=== PATIENT | male | born 1980 | race Caucasian/White ===

== ENCOUNTER → 2023-05-03 14:22 | Outpatient (POV) | payer OTHER, SELFPAY ==
[2023-05-03 15:33] VITALS: BP 190/98; PULSE 95; RESP 18; O2SAT 98; BMI 37.5
--- NOTE | 2023-05-03 16:02 | EXP.PAIN.OV ---
HPI Data of Consult Patient: new to practice Consult date: 05/03/23 Requesting Physician: Becca Isaac APRN Consult Narrative Reason for consult: Mid back pain, neck pain History of present illness: Mr. Soria is a 42 year old male who presents today as a new patient. He is a referral from Robert Hill's office. Today he rates his pain a 2 out of 10. Patient states he has chronic pain at his mid back as well as a history of low back pain and some neck pain. Patient states that in the past he did have a disc repair surgery back in 2009 and a revision in 2019. Patient states that his pain started at his mid back around 2020 after he had a [employer]tronic spinal cord stimulator placed for his low back pain with radicular symptoms. He does state that he got significant improvement of his low back and leg symptoms with the spinal cord stimulator however after that he has right-sided mid back pain continued to be an issue. He does describe this as an aching sensation with sharp pains that is worse with increased activity. Patient denies any previous injuries that could explain his pain. He has tried [id number]-[id number] Tylenol and ibuprofen along with heat and ice and topicals such as Salonpas and lidocaine patches with no additional relief. Patient denies any other back surgery. He states that he did end up going for a second opinion after his mid back pain had been going for some time and a Dr. Liang told him that he thought he had nerve entrapment. Patient does state that it did show in his imaging that he had some stenosis. Patient is interested in any possible help we may be able to provide. Patient states in the past he has had injections however not for his mid back pain. Patient has also tried duloxetine, gabapentin and multiple muscle relaxers with no additional relief. His Roberto Carlos is [phone]. Its been reviewed and appropriate. CC: Becca Isaac APRN [facility] Disclaimer: The information contained in this section may have been updated after the patient was seen, as this information can be updated by other users. Medical History (Updated 05/03/23 @ 16:04 by Becca Isaac APRN) Back pain with history of spinal surgery Diabetes HTN (hypertension) Seasonal allergies Social History (Updated 05/03/23 @ 15:37 by Adwoa Mitchell RN) Smoking Status: Never smoker alcohol intake: never current occupational status: other Travel in the last 8 weeks: None Review of Systems Review of Systems Review of systems:: pertinent systems reviewed and negative unless documented below Review of systems (narrative): Review of Systems: General: No recent weight changes, no fever, no sleep disturbances Respiratory: No cough, no shortness of air, no recurring pulmonary infections Cardiovascular/peripheral vascular: No chest pain, no palpitations, no edema, no shortness of breath Gastrointestinal: No new onset incontinence, normal bowel movements reported Genitourinary: No new onset incontinence Musculoskeletal: Mid back pain Psychiatric: [Normal mood/affect] Neurological: [Denies weakness in extremities], [denies balance issues] Meds Home Medications and Allergies Home Medications Medication Instructions Recorded Confirmed Type amlodipine 10 mg tablet 10 mg PO DAILY BLOOD PRESSURE 05/03/23 05/03/23 History blood-glucose sensor (FreeStyle 05/03/23 05/03/23 History Lora 3 Sensor device) cetirizine 10 mg tablet 10 mg PO DAILY ALLERGIES 05/03/23 05/03/23 History insulin aspart U-100 100 unit/mL See Rx Instructions .Route 05/03/23 05/03/23 History (3 mL) subcutaneous pen (Novolog .COMPLEX Diabetes FlexPen U-100 Insulin aspart) insulin glargine 100 unit/mL (3 See Rx Instructions .Route 05/03/23 05/03/23 History mL) subcutaneous pen (Lantus .COMPLEX Diabetes Solostar U-100 Insulin) irbesartan 300 mg tablet 300 mg PO DIRECTED BLOOD 05/03/23 05/03/23 History PRESSURE naproxen 500 mg tablet 500 mg PO DIRECTED Pain
== END ==
PROVIDERS: Visit Provider Nurse Practitioner Family
DX: M51.34 Other intervertebral disc degeneration, thoracic region (principal); M50.30 Other cervical disc degeneration, unspecified cervical region; M54.9 Dorsalgia, unspecified
CPT/HCPCS: 99202; G0463

== ENCOUNTER 2023-05-23 09:19 | Day surgery (SDC) | payer MEDICAID, SELFPAY ==
[2023-05-23 09:50] VITALS: BP 164/89; PULSE 99; RESP 18; TEMP 36.7; O2SAT 99; BMI 37.5
[2023-05-23 09:55] VITALS: BP 180/90; PULSE 97; RESP 18; O2SAT 97
[2023-05-23 09:56] VITALS: BP 180/90; PULSE 97; RESP 18; O2SAT 97
--- NOTE | 2023-05-23 09:58 | EXP.PAIN.PRO ---
Procedure Date: 05/23/23 Time: 09:55 Anesthesiologist:: Wing Walters CRNA Complications:: None Pre-procedure Diagnosis:: Degenerative disc thoracic spine. Disc bulge thoracic spine. Postlaminectomy syndrome lumbar spine. Post-procedure Diagnosis:: Same. Indications for Procedure:: Very pleasant 42-year-old male that comes our clinic today for T8-9 thoracic epidural steroid injection. Patient has functional spinal cord stimulator. Stimulator lead terminates at T8. He complains of thoracic back pain that is constant, dull, aching. Procedure Details:: Informed consent was obtained and the risks and benefits of the procedure were explained to the patient. The patient was taken to the procedure room and noninvasive monitors placed, including noninvasive blood pressure cuff and pulse oximeter. The back was viewed using C-Arm fluoroscopy and prepped using Betadine as a cleansing solution and the T7-8 interspace was palpated. Skin and subcutaneous tissues were anesthetized using lidocaine 1.5% and a 25-gauge needle. After this, an 18-gauge Touhy epidural needle was placed into the T7-8 interspace and advanced using fluoroscopic guidance and loss of resistance to air until the epidural space was encountered. After confirmation of needle placement in the epidural space, with dye, a solution containing lidocaine 1.5%, 4 mL and Depo-Medrol 80 mg were incrementally injected into the thoracic epidural space. The patient tolerated the procedure well with no complications. Plan and Disposition:: Patient was discharged without incident.
[2023-05-23 10:07] VITALS: BP 161/100; PULSE 87; RESP 18; O2SAT 99
== END 2023-05-23 10:07 | disposition home or self-care (01) ==
PROVIDERS: PCP Registered Nurse; Visit Provider Nurse Anesthetist, Certified Registered
DX: M51.34 Other intervertebral disc degeneration, thoracic region (principal); M96.1 Postlaminectomy syndrome, not elsewhere classified; Z96.82 Presence of neurostimulator
CPT/HCPCS: 62321; J1030; Q9966

== ENCOUNTER → 2023-05-29 12:55 | Outpatient (POV) | payer MEDICAID, SELFPAY ==
[2023-05-29 13:01] VITALS: BMI 38.6
--- NOTE | 2023-05-29 13:13 | A.OFFVIS_ITS ---
[facility] Pain Management SOAP Note Subjective:: Patient is a pleasant 42-year-old male who presents today for follow-up of thoracic epidural steroid injection T8-T9 on 05/23/2023. We are currently treating the patient for degenerative disc disease of cervical and thoracic spine with thoracic radiculopathy, mid back pain. Today he rates his pain a 0 out of 10 while sitting however he does state his pain will go up to a 4 or 5 with certain movements. He does describe his pain as a aching sensation with sharp shooting pains that is worse with bending, twisting or lifting. Patient does state the pain all seems to be at his mid back with radiating symptoms into his right mid back. Patient does state it interferes with his ability to p erform activities of daily living such as cooking and cleaning. From our last visit he did try compounding cream however he stated that he did not really notice much change other than it had a sticky consistency. Patient does use [id number] Tylenol and ibuprofen along with heat and ice as needed. Patients Roberto Carlos is [phone]. Its been reviewed and appropriate. Review of Systems: General: No recent weight changes, no fever, no sleep disturbances Respiratory: No cough, no shortness of air, no recurring pulmonary infections Cardiovascular/peripheral vascular: No chest pain, no palpitations, no edema, no shortness of breath Gastrointestinal: No new onset incontinence, normal bowel movements reported Genitourinary: No new onset incontinence Musculoskeletal: Mid back pain, right mid back pain Psychiatric: [Normal mood/affect] Neurological: [Denies weakness in extremities], [denies balance issues] Objective:: Physical Exam: General: Alert and oriented x3, no acute distress, pleasant and cooperative Lungs: Respirations even and unlabored, symmetrical chest expansion Eyes: PERRL Musculoskeletal: Flexion and extension of thoracic [spine] somewhat guarded secondary to pain, [antalgic gait noted] positive Kemps test Neurological: Speech clear, no gross sensory deficit Assessment:: Degenerative disc disease of thoracic and cervical spine with thoracic radiculopathy, mid back pain, thoracic facet arthropathy, thoracic spondylosis Plan:: Patient continues to experience significant pain in his mid back with limited range of motion. Patient had a positive Kemps test. I have discussed with the patient that he may benefit from a right thoracic medial branch block. Risk and benefits were discussed with the patient and he would like to proceed forward with this plan of care. I will also send in a prescription of methocarbamol 750 mg 3 times daily and provide a 2-week supply of this medication. Patient will be scheduled for a thoracic medial branch block right-sided T8-T9 and T9-T10. Patient has been instructed to contact the clinic with any concerns before the next appointment. Dr. Calderon has reviewed this note and agrees with this plan of care. This note was dictated using voice recognition software and make contain errors or omissions. [facility] Disclaimer: The information contained in this section may have been updated after the patient was seen, as this information can be updated by other users. Medical History Back pain with history of spinal surgery Diabetes HTN (hypertension) Seasonal allergies Family History (Updated 05/23/23 @ 09:52 by Devorah Lopez RN) Other No significant family history Social History Smoking Status: Never smoker alcohol intake: never current occupational status: other Travel in the last 8 weeks: No
== END | disposition home or self-care (01) ==
PROVIDERS: Visit Provider Nurse Practitioner Family
DX: M51.14 Intervertebral disc disorders with radiculopathy, thoracic region (principal); M50.30 Other cervical disc degeneration, unspecified cervical region; M47.24 Other spondylosis with radiculopathy, thoracic region
CPT/HCPCS: 99212; G0463

== ENCOUNTER 2023-06-06 13:34 | Day surgery (SDC) | payer MEDICAID, SELFPAY ==
[2023-06-06 13:50] VITALS: BP 149/93; PULSE 96; RESP 18; TEMP 37.3; O2SAT 98; BMI 37.5
[2023-06-06 14:08] VITALS: BP 146/90; PULSE 87; RESP 18; O2SAT 96
--- NOTE | 2023-06-06 14:16 | EXP.PAIN.PRO ---
Procedure Date: 06/06/23 Time: 14:10 Anesthesiologist:: Wing Walters CRNA Complications:: None Pre-procedure Diagnosis:: Right thoracic back pain. Thoracic radiculopathy. Post-procedure Diagnosis:: Same. Indications for Procedure:: Patient is a very pleasant 42-year-old male comes our clinic today for a right T8-9, T9-10 thoracic facet block. Patient had thoracic epidural steroid injection with minimal to no relief. Patient continues having right side thoracic back pain he describes as constant, dull, aching. Patient rates his pain 8/10. Procedure Details:: Details of the procedure explained to the patient. The patient taken to procedure room placed in the prone position on the fluoroscopy table. The area over the thoracic spine was cleansed using chlorhexidine as a cleansing solution. Using fluoroscopy guidance markers were placed over the right T8-9 and T9-10 facet joint. The skin and subcutaneous tissue was anesthetized using 1% lidocaine and 25-gauge needle each marker. At this time using fluoroscopy guidance a 22-gauge spinal needle was used to access the right T8-9 facet joint and T9-10 facet joint. 1 cc of 1% lidocaine +10 mg of Depo-Medrol was injected after negative aspiration at each level. Patient tolerated procedure without difficulty. There are no complications Plan and Disposition:: Patient was discharged without incident. Patient reports 1% pain relief in his right-sided thoracic back pain prior to discharge.
[2023-06-06 14:32] VITALS: RESP 18; O2SAT 98
== END 2023-06-06 14:08 | disposition home or self-care (01) ==
LOC: SC.PAINP 13:35
PROVIDERS: PCP Registered Nurse; Visit Provider Nurse Anesthetist, Certified Registered
DX: M47.894 Other spondylosis, thoracic region (principal)
CPT/HCPCS: 64490; 64491; J1040

== ENCOUNTER → 2023-06-21 14:04 | Outpatient (POV) | payer MEDICAID, SELFPAY ==
[2023-06-21 15:50] VITALS: BP 136/90; PULSE 116; RESP 20; O2SAT 95; BMI 38.5
--- NOTE | 2023-06-21 16:36 | EXP.PAIN.SOA ---
[facility] Pain Management SOAP Note Subjective:: Patient is a pleasant 42-year-old male who presents today for follow-up of thoracic medial branch block right-sided T8-T9 and T9-T10 on 06/06/2023. We are currently treating the patient for degenerative disc disease of cervical and thoracic spine with cervical and thoracic radiculopathy symptoms, mid back pain. Today he rates his pain a 4 out of 10. He states he has had at least 50% improvement following this injection and did feel like it improved some of his range of motion. He states he has been able to increase his activity with decreased pain symptoms however he does feel like it is already started to wear off and going back towards his baseline. Patient does state his pain is a aching, throbbing sensation with sharp shooting pains that is worse with certain movements such as bending, twisting or lifting. He does state the pain interferes with his ability perform activities of daily living such as cooking and cleaning. Patient does have a [employer] spinal cord stimulator in place that does help with some of his lumbar radiculopathy symptoms. He does state that initially his mid back pain started once his spinal cord stimulator was placed. He has talked to physicians who thinks that it may be touching a nerve and causing additional symptoms. Patient does state he has had his spinal cord stimulator reprogrammed in the past but it has been a little bit. He does use gibm-ite-hyvzciv Tylenol and ibuprofen along with heat and ice for added improvement. He does state that prior to this injection he had a day of debilitating pain where he was not even able to get up from a sitting position. Patient states he did take some liquid oxycodone medication that was at his house from a prior child's procedure and it did help somewhat. Patient does state that he also was prescribed Tylenol 3 the following Monday from his primary care provider however he did not notice any additional improvement with this medication. His Roberto Carlos is [phone]. Its been reviewed Review of Systems: General: No recent weight changes, no fever, no sleep disturbances Respiratory: No cough, no shortness of air, no recurring pulmonary infections Cardiovascular/peripheral vascular: No chest pain, no palpitations, no edema, no shortness of breath Gastrointestinal: No new onset incontinence, normal bowel movements reported Genitourinary: No new onset incontinence Musculoskeletal: Mid back pain Psychiatric: [Normal mood/affect] Neurological: [Denies weakness in extremities], [denies balance issues] Objective:: Physical Exam: General: Alert and oriented x3, no acute distress, pleasant and cooperative Lungs: Respirations even and unlabored, symmetrical chest expansion Eyes: PERRL Musculoskeletal: Flexion and extension of thoracic [spine] somewhat guarded secondary to pain, [antalgic gait noted] positive Kemps test Neurological: Speech clear, no gross sensory deficit Assessment:: Degenerative disc disease of cervical and thoracic spine with cervical and thoracic radiculopathy symptoms, mid back pain Plan:: Patient is experiencing Worsening mid back pain with limited range of motion. Patient did have a positive Kemps test during today's visit. Patient did have 50% improvement from his first thoracic medial branch block. I have discussed with the patient that he may benefit from a repeat injection. Risk and benefits were explained to the patient and he would like to proceed forward with this plan of care. We will plan on proceeding forward with a thoracic RFA in the future if he does continue to get significant relief from these diagnostic blocks. I have also discussed with the patient that it may be beneficial to try to reprogram his Medtr[employer] device again. I will contact [employer] field sales representative and have present at his upcoming appointment for reprogramming. I have also discussed with the patient that if he does not get significant relief in the future it
== END ==
PROVIDERS: Visit Provider Nurse Practitioner Family
DX: M50.10 Cervical disc disorder with radiculopathy, unspecified cervical region (principal); M51.14 Intervertebral disc disorders with radiculopathy, thoracic region
CPT/HCPCS: 99212; G0463

== ENCOUNTER 2023-07-04 16:54 | Day surgery (SDC) | payer MEDICAID, SELFPAY ==
[2023-07-04 14:10] VITALS: RESP 20; O2SAT 97; O2SAT 98
[2023-07-04 17:00] VITALS: BP 177/99; BP 196/99; PULSE 80; PULSE 98; RESP 20; TEMP 36.3; O2SAT 98; BMI 37.5
--- NOTE | 2023-07-05 09:44 | PC.NURSE ---
care occurred on 07/04/23 between 5730-2215. d/t computer issue, it is unable to be documented under the exact time.
== END 2023-07-04 17:00 | disposition home or self-care (01) ==
LOC: SC.PAINP 16:55
PROVIDERS: PCP Registered Nurse; Visit Provider Nurse Anesthetist, Certified Registered
DX: M47.894 Other spondylosis, thoracic region (principal); M51.14 Intervertebral disc disorders with radiculopathy, thoracic region
CPT/HCPCS: 64490; 64491; J1040

== ENCOUNTER → 2023-07-11 12:44 | Outpatient (POV) | payer MEDICAID, SELFPAY ==
[2023-07-11 12:57] VITALS: BP 176/119; PULSE 102; RESP 18; O2SAT 98; BMI 37.5
--- NOTE | 2023-07-11 13:36 | EXP.PAIN.PRO ---
Procedure Date: 07/04/23 Time: 14:00 Anesthesiologist:: Wing Walters CRNA Complications:: None Pre-procedure Diagnosis:: Degenerative disc thoracic spine. Thoracic spondylosis T8-9, T9-10. Thoracic radiculopathy. Post-procedure Diagnosis:: Same. Indications for Procedure:: Patient is a very pleasant 42-year-old male that comes our clinic today for repeat right T8-9, T9-10 facet block/medial branch block. Patient had significant improvement 90% or greater after his first round at the same level. Procedure Details:: Details of the procedure explained to the patient. The patient taken to procedure room placed in the position. The area of the thoracic spine was cleansed using chlorhexidine as a cleansing solution. Using fluoroscopy guidance a 22-gauge 3 and half inch needle was used to access the right T8-9 and T9-10 facet joint. 1 cc of 1% lidocaine +20 mg of Depo-Medrol was injected at each site. Patient tolerated procedure without difficulty. No complications. Plan and Disposition:: Patient was discharged without incident.
--- NOTE | 2023-07-11 13:37 | EXP.PAIN.SOA ---
[facility] Pain Management SOAP Note Subjective:: Patient is a pleasant 42-year-old male that comes our clinic today for follow-up visit after receiving 2 rounds medial branch blocks/facet injections at the T8-9, T9-10 right thoracic spine. Patient reports 1 hour of significant improvement (90%) after his second round at the T8-9, T9-10 right thoracic facet joints. Patient has significant improvement after his first round at the same levels. Patient describes his thoracic back pain at times as constant, dull, aching. He rates the pain 7/10. Patient states lying down takes pain away most of the time. Objective:: Patient is awake alert Jumping Branch x3. In no acute distress. Flex tension cervical lumbar spine normal. Deep tendon reflexes upper and lower extremities normal. Motor strength upper and lower extremities normal. There is no gross sensory deficit. Gait is normal. Assessment:: Degenerative disc thoracic spine. Thoracic spondylosis right T8-9, T9-10. Thoracic radiculopathy. Plan:: We will schedule the patient for right T8-9, T9-10 radiofrequency ablation. I discussed in detail with the patient regarding the procedure. He wishes to proceed. [facility] Disclaimer: The information contained in this section may have been updated after the patient was seen, as this information can be updated by other users. Medical History Back pain with history of spinal surgery Diabetes HTN (hypertension) Seasonal allergies Family History Other No significant family history Social History (Updated 07/11/23 @ 13:39 by Wing Walters CRNA) Smoking Status: Never smoker alcohol intake: never substance use type: denies use current occupational status: employed Travel in the last 8 weeks: None
== END | disposition home or self-care (01) ==
PROVIDERS: PCP Registered Nurse; Visit Provider Nurse Anesthetist, Certified Registered
DX: M47.894 Other spondylosis, thoracic region (principal); M51.14 Intervertebral disc disorders with radiculopathy, thoracic region
CPT/HCPCS: 99212; G0463

== ENCOUNTER → 2023-07-24 13:49 | Outpatient (POV) | payer MEDICAID, SELFPAY ==
[2023-07-24 14:04] VITALS: BP 187/100; PULSE 111; RESP 18; O2SAT 97; BMI 37.5
--- NOTE | 2023-07-24 14:20 | EXP.PAIN.SOA ---
[facility] Pain Management SOAP Note Subjective:: Patient is a pleasant 42-year-old male who presents today for insurance denial of thoracic RFA. We are currently treating the patient for degenerative disc disease of cervical and thoracic spine with cervical and thoracic radiculopathy symptoms, mid back pain. Today he rates his pain a 3 out of 10. He states he continues to have pain in his mid back and describes it as an aching, throbbing sensation with sharp shooting pains that is worse with certain movements such as bending, twisting or lifting. Patient has had 2 thoracic medial branch blocks with more than 50% improvement however his RFA was then denied by insurance. He states this continues to be a chronic issue and does affect his ability perform activities of daily living such as cooking and cleaning. He states that he has little quality of life due to the chronic pain. He states he also has some right-sided neck pain that is worse with bending, twisting or lifting. He does state that this pain is nothing compared to his mid back pain. He does have a [employer] spinal cord stimulator in place that does help with some of his lumbar radiculopathy symptoms. He does continue to state that his mid back pain never really started until the stem was placed. He states that the programming with the stimulator does help however 1-lead has moved and he is unsure whether or not he would get more benefit from a revision versus removal of the device. He has tried and failed conservative therapy such as [id number]-[id number] Tylenol and ibuprofen along with heat and ice with minimal improvement. Patient was prescribed Tylenol 3 at the end of May from an outside provider. He is also prescribed compounded cream. At our last visit we did discuss that he may benefit from a pain pump trial in the future. Educational handouts were given to him. He does state today that he is very interested in this option. His Roberto Carlos is [id number]. Its been reviewed Review of Systems: General: No recent weight changes, no fever, no sleep disturbances Respiratory: No cough, no shortness of air, no recurring pulmonary infections Cardiovascular/peripheral vascular: No chest pain, no palpitations, no edema, no shortness of breath Gastrointestinal: No new onset incontinence, normal bowel movements reported Genitourinary: No new onset incontinence Musculoskeletal: Mid back pain Psychiatric: [Normal mood/affect] Neurological: [Denies weakness in extremities], [denies balance issues] Objective:: Physical Exam: General: Alert and oriented x3, no acute distress, pleasant and cooperative Lungs: Respirations even and unlabored, symmetrical chest expansion Eyes: PERRL Musculoskeletal: Flexion and extension of thoracic [spine] somewhat guarded secondary to pain, [antalgic gait noted] Neurological: Speech clear, no gross sensory deficit Assessment:: Degenerative disc disease of cervical and thoracic spine with cervical and thoracic radiculopathy symptoms, mid back pain, chronic pain syndrome Plan:: Patient continues to experience significant pain in his mid back with limited range of motion. I have discussed with the patient that I did do a peer to peer with his insurance this morning and was informed that they do not cover any thoracic RFA's or epidurals. They did state that they would cover cervical or lumbar. I have counseled the patient due to this finding we are unable to proceed forward with a thoracic RFA. I have reviewed the risk and benefits of the pain pump trial and he would like to proceed forward with this plan of care. I will order the patient a psych eval and if he is deemed an appropriate candidate we will proceed forward with the pain pump trial in the future. I have also discussed with the patient that we will discuss further the pros and cons regarding possible lead revision or removal of his spinal cord stimulator implant. Patient will return to clinic in 6 weeks following his psych evaluati
== END ==
PROVIDERS: Visit Provider Nurse Practitioner Family
DX: M50.10 Cervical disc disorder with radiculopathy, unspecified cervical region (principal); M51.14 Intervertebral disc disorders with radiculopathy, thoracic region; G89.4 Chronic pain syndrome
CPT/HCPCS: 99212; G0463

== ENCOUNTER → 2023-09-11 09:09 | Outpatient (POV) | payer MEDICAID, SELFPAY ==
--- NOTE | 2023-09-11 09:39 | EXP.PAIN.SOA ---
[facility] Pain Management SOAP Note Subjective:: Patient is a pleasant 42-year-old male who presents today for follow-up of psychological evaluation. We are currently treating the patient for degenerative disc disease of cervical and thoracic spine with cervical and thoracic radiculopathy symptoms, mid back pain, chronic pain syndrome. Today he rates his pain a 2 out of 10. Patient denies any new trauma or injury from her last visit. He does state that he is having a better day today however it is still early and typically by the end of the day his pain will worsen. Patient does have a spinal cord stimulator in place that does help some of his radiating symptoms. He states however he continues to have worsening mid back pain that does interfere with his ability perform activities of daily living such as cooking and cleaning. Patient does have issues with range of motion or certain movements such as bending twisting or lifting. Patient has previously had successful medial branch blocks however his RFA was denied by insurance. We have previously discussed whether or not replacing or revising his SCS system due to 1-lead that moved. At our last visit we did discuss the intrathecal pain pump trial. Today he is does state he would like to proceed forward with this plan of care. Patient is prescribed compounding cream from our office and has been given Tylenol 3 from a previous provider in the past. His Roberto Carlos has been reviewed and is appropriate. Review of Systems: General: No recent weight changes, no fever, no sleep disturbances Respiratory: No cough, no shortness of air, no recurring pulmonary infections Cardiovascular/peripheral vascular: No chest pain, no palpitations, no edema, no shortness of breath Gastrointestinal: No new onset incontinence, normal bowel movements reported Genitourinary: No new onset incontinence Musculoskeletal: Neck pain, mid back pain Psychiatric: [Normal mood/affect] Neurological: [Denies weakness in extremities], [denies balance issues] Objective:: Physical Exam: General: Alert and oriented x3, no acute distress, pleasant and cooperative Lungs: Respirations even and unlabored, symmetrical chest expansion Eyes: PERRL Musculoskeletal: Flexion and extension of thoracic [spine] somewhat guarded secondary to pain, [antalgic gait noted] Neurological: Speech clear, no gross sensory deficit Assessment:: Degenerative disc disease of cervical and thoracic spine with cervical and thoracic radiculopathy symptoms, mid back pain, chronic pain syndrome Plan:: Patient continues to have chronic mid back pain that is worsened with increased activity. Patient did have limited range of motion of his thoracic spine during today's visit. Patient did have a psychological evaluation and was deemed an appropriate candidate for the intrathecal pain pump trial. Risk and benefits of this procedure were discussed with the patient and he would like to proceed forward with this option. I have also reviewed over again regarding has spinal cord stimulator device and that if it is still continuing to provide improvement on his radicular symptoms that he may want to leave this and and see how the pump trial does for his mid back pain. Patient has tried and failed conservative therapy such as oral medications, heat and ice, topicals, physical therapy, at home stretching and exercise for longer than 12 weeks. Patient will be scheduled for a intrathecal pain pump trial. Patient has been instructed to contact the clinic with any concerns before the next appointment. Dr. Calderon has reviewed this note and agrees with this plan of care. This note was dictated using voice recognition software and make contain errors or omissions. [facility] Disclaimer: The information contained in this section may have been updated after the patient was seen, as this information can be updated by other users. Medical History (Updated 09/06/23 @ 15:23 by Arlene Barr [facility]) Back pa
[2023-09-11 09:43] VITALS: BP 175/100; PULSE 94; RESP 18; O2SAT 98; BMI 37.5
== END ==
PROVIDERS: PCP Registered Nurse; Visit Provider Nurse Practitioner Family
DX: M50.10 Cervical disc disorder with radiculopathy, unspecified cervical region (principal); M51.14 Intervertebral disc disorders with radiculopathy, thoracic region; G89.4 Chronic pain syndrome
CPT/HCPCS: 99212; G0463

== ENCOUNTER 2023-10-13 09:46 | Day surgery (SDC) | payer MEDICAID, SELFPAY ==
[2023-10-13] VITALS (7 sets, daily range): BP systolic 148–188; BP diastolic 88–109; PULSE 93–111; RESP 18–19; O2SAT 95–99; BMI 37.5
--- NOTE | 2023-10-13 12:01 | PC.NURSE ---
1113: DR BIRD AT PT BEDSIDE DISCUSSING POC W/ PT. PT STABLE AND DOING WELL.
--- NOTE | 2023-10-13 14:50 | EXP.PAIN.PRO ---
Procedure Date: 10/13/23 Time: 14:50 Anesthesiologist:: Supa Calderon MD Complications:: None Pre-procedure Diagnosis:: Postlaminectomy syndrome thoracic with lumbar radiculopathy symptoms and degenerative disc disease of lumbar spine Post-procedure Diagnosis:: Same Indications for Procedure:: This patient is a pleasant 42-year-old white male who we are treating for mid and low back pain with lumbar radicular symptoms. He does have a spinal cord stimulator system in place with a paddle lead at T7-T8. He has increasing mid back pain and low back pain with lumbar radicular symptoms. The spinal cord stimulator is helping with his leg pain however he still has some increasing mid and low back pain which is unrelieved by the stimulator. He has failed all previous conservative treatments including injections, oral medications, physical therapy he is not a candidate for any further surgery. He did have a laminectomy in the thoracic region. He had a successful psychological evaluation. He presents for intrathecal pump trial today. Procedure Details:: Pain pump trial Informed consent was obtained and the risk and benefits of the procedure was explained to the patient. The patient was taken to the procedure room and placed prone on the procedure table. Patient was prepped and draped in sterile fashion. C-arm fluoroscopy was used to view the lumbar spine. The skin and subcutaneous tissues were anesthetized using lidocaine. I placed a 18-gauge spinal needle into the L4-5 interspace and advanced until clear CSF was obtained. After this intrathecal catheter was inserted and advanced very easily to the L1 vertebral body. The needle was withdrawn. We were able to freely withdraw clear CSF through the catheter. We then injected intrathecal opioid single shot bolus of 25 mcg followed by saline and followed by the previous CSF that was withdrawn. The needle and catheter were then removed and a Band-Aid was placed. Patient tolerated the procedure well with no complications. We reevaluated the patient after 30 minutes to 1 hour. He was also reassessed by physical therapy. He had 80 to 100% relief in pain symptoms. He was much more functional. He was standing up straighter he was walking much better Bowel indications this was a successful intrathecal pump trial. Plan and Disposition:: We will follow-up with him in 1 week we will reevaluate symptoms at that time and evaluate efficacy of the trial at that time. If successful we will plan on permanent placement with intrathecal morphine 1 mg per mouth to start at 100 mcg/day. Catheter tip will be at the T8 vertebral body.
== END 2023-10-13 12:00 | disposition home or self-care (01) ==
LOC: SC.PAINP 09:47
PROVIDERS: PCP Registered Nurse; Visit Provider Anesthesiology
DX: M51.16 Intervertebral disc disorders with radiculopathy, lumbar region (principal); M96.1 Postlaminectomy syndrome, not elsewhere classified; Z96.82 Presence of neurostimulator
CPT/HCPCS: 62323

== ENCOUNTER → 2023-10-26 11:15 | Outpatient (POV) | payer MEDICAID, SELFPAY ==
[2023-10-26 11:41] VITALS: BP 167/95; PULSE 101; RESP 18; O2SAT 97; BMI 37.5
--- NOTE | 2023-10-26 12:08 | EXP.PAIN.SOA ---
[facility] Pain Management SOAP Note Subjective:: Patient is a pleasant 42-year-old male who presents today for intrathecal pain pump trial follow-up on 10/13/2023. We are currently treating the patient for degenerative disc disease of cervical and thoracic spine with cervical and thoracic radiculopathy symptoms, mid back pain, chronic pain syndrome. Today he rates his pain a 6 out of 10. Patient does state that he had 100% relief following the pain pump trial lasting approximately 6 hours. Patient states that that was the best he is felt for some time. He did feel more functional and had decreased pain symptoms and felt like he would be able to do more on a daily basis. Patient does state that he would like to proceed forward with this plan of care and have the device implanted. Patient also states he had had a couple falls prior to this trial due to weakness in his legs. Patient states that he did end up having a stiff neck that did radiate into his right shoulder and down his upper forearm. Patient states that he went to his primary care provider who did think it was muscle related and that he did try a muscle relaxer during that time. Patient states it has gotten somewhat better however he continues to have limited range of motion of his cervical spine and pain going down the upper extremity. Patient does not know if he is worse in something within his neck. He also states that at 1 point his entire thumb was completely numb. Patient denies any recent cervical imaging. Patient does have a spinal cord stimulator in place that is not necessarily compatible with MRI. His Roberto Carlos has been reviewed and is appropriate. Review of Systems: General: No recent weight changes, no fever, no sleep disturbances Respiratory: No cough, no shortness of air, no recurring pulmonary infections Cardiovascular/peripheral vascular: No chest pain, no palpitations, no edema, no shortness of breath Gastrointestinal: No new onset incontinence, normal bowel movements reported Genitourinary: No new onset incontinence Musculoskeletal: Neck pain, mid back pain Psychiatric: [Normal mood/affect] Neurological: [Denies weakness in extremities], [denies balance issues] Objective:: Physical Exam: General: Alert and oriented x3, no acute distress, pleasant and cooperative Lungs: Respirations even and unlabored, symmetrical chest expansion Eyes: PERRL Musculoskeletal: Flexion and extension of cervical [spine] somewhat guarded secondary to pain, [antalgic gait noted] Neurological: Speech clear, no gross sensory deficit Assessment:: Degenerative disc disease of cervical and thoracic spine with cervical and thoracic radiculopathy symptoms, mid back pain, chronic pain syndrome Plan:: Patient is experiencing worsening pain in his neck with radiating symptoms down his right arm. I have discussed with the patient due to the recent changes after a fall that I will order updated imaging with a CT without contrast of his cervical spine. I have also discussed with the patient the risk and benefits of the intrathecal pain pump implant and he would like to proceed forward with this plan of care. We will plan on submitting to insurance for the intrathecal pump placement with intrathecal morphine starting dose 0.01 mg per day with the catheter tip at the L1 vertebral body. Patient has tried and failed conservative therapy such as oral medication, heat and ice, topicals, physical therapy, at home stretching exercise for longer than 12 weeks, previous SCS therapy and injection therapy. We will submit for the intrathecal pain pump and contact the patient once we have official insurance approval for date and time. Patient has been instructed to contact the clinic with any concerns before the next appointment. Dr. Calderon has reviewed this note and agrees with this plan of care. This note was dictated using voice recognition software and make contain errors or omissions. [facility] Disclaimer: The information con
== END ==
PROVIDERS: Visit Provider Nurse Practitioner Family
DX: M50.10 Cervical disc disorder with radiculopathy, unspecified cervical region (principal); M51.14 Intervertebral disc disorders with radiculopathy, thoracic region; G89.4 Chronic pain syndrome
CPT/HCPCS: 99212; G0463

== ENCOUNTER → 2023-10-26 11:57 | Outpatient (CLI) | payer MEDICAID, SELFPAY ==
--- NOTE | 2023-10-26 12:02 | XR_ITS ---
FINAL REPORT TECHNIQUE: 5 views CLINICAL HISTORY: NECK PAIN COMPARISON: None FINDINGS: There is no fracture present. There is no malalignment. There are mild anterior osteophytes present at the C5-6 level. No prevertebral soft tissue swelling is identified. IMPRESSION: No acute process. Mild anterior osteophytes at the C5-6 level. Reviewed, Interpreted and Dictated by Lokesh Fletcher MD Transcribed by Raysa Brito Authenticated and [facility][1]
== END ==
PROVIDERS: PCP Registered Nurse; Visit Provider Nurse Practitioner Family
DX: M54.2 Cervicalgia (principal)
CPT/HCPCS: 72050

== ENCOUNTER 2023-11-13 09:12 | Outpatient (CLI) | payer MEDICAID, SELFPAY ==
[2023-11-13 09:45] LABS: Basophils # 0.1 K/mm3 (0-0.2); Basophils % 0.9 % (0.1-2.0); Eosinophils # 0.2 K/mm3 (0.0-0.4); Eosinophils % 1.5 % (0.1-12.0); Hematocrit 46.9 % (42.0-52.0); Hemoglobin 15.2 g/dL (14.1-18.0); Lymphocytes # 2.6 K/mm3 (0.7-4.5); Lymphocytes % 22.8 % (10-50); Mean Corpuscular HGB Conc 32.3 g/dL (31.8-35.4); Mean Corpuscular Hemoglobin 27.4 pg (27.0-31.2); Mean Corpuscular Volume 84.7 fl (80-94); Mean Platelet Volume 7.4 fl (7.4-10.4); Monocytes # 0.7 K/mm3 (0.1-1.0); Monocytes % 6.2 % (1.7-9.3); Neutrophils # 7.8 K/mm3 (1.8-7.8); Neutrophils % 68.7 % (37.0-80.0); Platelet Count 288 K/mm3 (142-424); Red Blood Count 5.54 M/mm3 (4.60-6.20); Red Cell Distribution Width 13.9 % (11.5-17.5); White Blood Count 11.4 K/mm3 (4.8-10.8)
[2023-11-13 10:11] LABS: Amphetamine/Metha Screen,Urine Negative ng/ml (<1000); Barbiturates Screen,Urine Negative ng/ml (<200); Benzodiazepines Screen,Urine Negative ng/ml (<200); Cannabinoid Screen,Urine Negative ng/ml (<50); Cocaine Screen,Urine Negative ng/ml (<300); Methadone Screen,Urine Negative ng/ml (<300); Opiate Screen,Urine Negative ng/ml (<300); Phencyclidine Screen,Urine Negative ng/ml (<25)
[2023-11-13 11:08] LABS: Chloride 101 mmol/L (98-107); Potassium 4.4 mmoL/L (3.5-5.1); Sodium 138 mmol/L (136-145)
[2023-11-13 11:11] LABS: Anion Gap 11.4 mEq/L (5-15); Blood Urea Nitrogen 14 mg/dl (9-20); Calcium 8.9 mg/dl (8.4-10.2); Carbon Dioxide 30 mmol/L (22.0-30.0); Estimated Glomerular Filt Rate 106 ml/min (>60); GFR (African American) 128 ML/MIN (>60); Glucose 168 mg/dl (74-100)
== END 2023-11-13 23:59 ==
LOC: LAB 09:14
PROVIDERS: Visit Provider Anesthesiology
DX: M51.14 Intervertebral disc disorders with radiculopathy, thoracic region (principal); M51.16 Intervertebral disc disorders with radiculopathy, lumbar region; G89.29 Other chronic pain
CPT/HCPCS: 36415; 80048; 80307; 85025

== ENCOUNTER 2023-11-17 06:48 | Day surgery (SDC) | payer MEDICAID, SELFPAY ==
[2023-11-16 09:38] VITALS: BMI 37.5
[2023-11-17 07:28] VITALS: BP 171/110; PULSE 100; RESP 18; TEMP 36.4; O2SAT 97
[2023-11-17] MEDS: LACTATED RINGERS 1000ML 1,000 ML 25 ML IV (07:34)
[2023-11-17 07:43] LABS: POC Glucose,Bedside 150 (70-110)
[2023-11-17] MEDS: VANCOMYCIN HCL 2,250 MG in 0.9 % SODIUM CHLORIDE 250 ML 125 MG IV (08:06)
--- NOTE | 2023-11-17 10:08 | EXP.ANES.CKL ---
[facility] Disclaimer: The information contained in this section may have been updated after the patient was seen, as this information can be updated by other users. Medical History Back pain with history of spinal surgery Diabetes HTN (hypertension) Seasonal allergies Surgical History History of back surgery History of knee surgery Family History Other No significant family history Social History Smoking Status: Never smoker alcohol intake: never substance use type: denies use current occupational status: unemployed Travel in the last 8 weeks: None [facility] Anesthesia Checklist Patient Identification Patient Identification: Verbal (Name & ) Structural Data Admitted From: Home Planned Operative Procedure/s: pain pump insertion Consent for Planned Operative Procedure(s) Verified: Yes NPO Status Verified Time NPO: 00:00 Additional verifications Anesthesia Reactions: No Hx Blood Transfusions: No Blood Transfusion Reaction: No Airway Assessment Mallampati Score:: Class II C-Spine Mobility Assessed: Yes TMJ Mobility Assessed: Yes Dentition: Good Dentition Neurological Assessment Level of Consciousness: Awake, Alert and Appropriate Anesthesia Plan Anesthesia Risk discussed: Yes Anesthesia Plan: Verified ASA Class: III Anesthesia Type: MAC
[2023-11-17] MEDS: LIDOCAINE 1% W/EPI 1:100,000 20ML VIAL 20 ML (10:28)
[2023-11-17] MEDS: GENTAMICIN 80 MG/2 ML VIAL (10:28)
[2023-11-17] MEDS: SODIUM CHLORIDE 0.9% 20ML VIAL 40 ML IV (10:29)
[2023-11-17 11:17] VITALS: BP 141/81; PULSE 98; RESP 16; TEMP 36.4; O2SAT 93
[2023-11-17 11:27] VITALS: BP 148/89; PULSE 94; RESP 16; O2SAT 93
--- NOTE | 2023-11-17 11:30 | P.OP_ITS ---
Date of procedure: 11/17/23 Pre-op Diagnosis:: Postlaminectomy syndrome thoracic spine with degenerative disc disease of the thoracic and lumbar spine with lumbar radiculopathy symptoms Post-op Diagnosis:: Same Procedure performed:: Permanent placement intrathecal pain pump with tunneled intrathecal catheter and pain pump generator placement Surgeon:: Supa Calderon MD [employer]OCIATE:: Geovanny Buchanan Anesthesia: MAC Estimated blood loss (mL): 30 Clinical Note:: The patient is a pleasant 42-year-old white male who we are treating for mid low back pain with thoracic and lumbar radiculopathy symptoms. He does have a spinal cord stimulator in place with a paddle lead that he ate T9. It does help some of his leg pain however he still has mid and low back pain. He has failed all previous conservative treatments including injections, oral medications, physical therapy and he is not a candidate for any further surgery. He had a successful psychological evaluation and a successful intrathecal pump trial. He presents for permanent placement of his intrathecal pain pump today. Operative findings:: None Operative note:: Informed consent was obtained risk and benefits of the procedure explained to the patient. Patient was taken the operating room placed prone on the procedure table. He was prepped and draped in sterile fashion. C-arm fluoroscopy was used to view the right flank. [place] between the 12th rib and iliac crest we anesthetize the skin and subcutaneous tissues and made an incision dissected out the pump pocket. C-arm fluoroscopy was then used to view the lumbar spine. The skin and subcutaneous tissues adjacent to the L4-5 and L5-S1 interspace were anesthetized using lidocaine. I made incision dissected down to the lumbar paraspinous fascia. A 17-gauge spinal needle was inserted and advanced into the L4-L5 interspace until clear CSF was obtained. After this intrathecal catheter was inserted and advanced very easily to the T8 vertebral body. This is at the superior aspect of his spinal cord stimulator paddle lead. The catheter was in good position it was midline and posterior. The stylette of the catheter and the needle withdrawn. The catheter was secured to the fascia with an anchoring device and 2-0 Prolene. I prepared the pump with 20 mL of intrathecal morphine 1 mg/mL. I tunneled the catheter from the back to the pump pocket and attached catheter to the pump. We are able to freely withdraw clear CSF through the sideport. The pump was placed in the pocket with an antibiotic pouch. Both incisions were then closed with 2-0 Vicryl followed by 4-0 nylon and subcutaneous siddharth. The patient was placed in an abdominal binder taken recovery in stable condition. The patient tolerated the procedure well with no complications. Pump was programmed to started at 100 mcg/day of intrathecal morphine. Patient was discharged home neurologic intact with good relief of pain symptoms. Plan and disposition: We will follow-up with this patient in 1 week for reprogramming and wound check. Will follow-up in 2 to 3 weeks for suture removal. Condition: stable Disposition: PACU Complications:: None
[2023-11-17 11:37] VITALS: BP 152/99; PULSE 98; RESP 16; O2SAT 93
[2023-11-17] MEDS: MORPHINE 4MG/ML SYRINGE 4 MG IV (11:37)
[2023-11-17 11:47] VITALS: BP 145/94; PULSE 92; RESP 16; O2SAT 98
[2023-11-17 12:00] VITALS: BP 160/91; PULSE 92; RESP 16; TEMP 36.7; O2SAT 99
== END 2023-11-17 12:00 | disposition home or self-care (01) ==
PROVIDERS: PCP Registered Nurse; Visit Provider Anesthesiology
PROC: (CPT 62350; principal; 2023-11-17 08:30)
DX: M96.1 Postlaminectomy syndrome, not elsewhere classified (principal); M51.34 Other intervertebral disc degeneration, thoracic region; M51.16 Intervertebral disc disorders with radiculopathy, lumbar region; E11.9 Type 2 diabetes mellitus without complications
CPT/HCPCS: 62350; 62362; 82962; C1755; C1772; J3370

== ENCOUNTER → 2023-11-23 09:06 | Outpatient (POV) | payer MEDICAID, SELFPAY ==
--- NOTE | 2023-11-23 09:12 | EXP.PAIN.SOA ---
[facility] Pain Management SOAP Note Subjective:: Patient is a pleasant 43-year-old male who presents today for 1 week postop follow-up of intrathecal pain pump placed on 11/17/2023. We are currently treating the patient for degenerative disc disease of cervical and thoracic spine with cervical and thoracic radiculopathy symptoms, mid back pain, chronic pain syndrome. Today he rates his pain a 0 out of 10. He denies any new injury or trauma since having this procedure done. He states he has had significant improvement of his overall pain symptoms. Patient states that he has been able to move around easier with decreased pain. Patient states he has not even had to use his spinal cord stimulator at this time. Patient does state that he did slip and hit his knee 1 day when he went out onto the ice but otherwise would be doing great considering. Patient does state that his wound VAC did get filled with water when he took a shower this morning so they went ahead and remove the device patient is currently managed with intrathecal morphine 1 mg/mL with a daily dose of 0.0999 mg/day.Patient denies any side effects from this medication. He does state that when the tape was removed he did notice a rash around his mid to upper back. He states it is not causing any pain just is itching. Patient denies any previous allergies to tape. His Roberto Carlos has been reviewed and is appropriate. Review of Systems: General: No recent weight changes, no fever, no sleep disturbances Respiratory: No cough, no shortness of air, no recurring pulmonary infections Cardiovascular/peripheral vascular: No chest pain, no palpitations, no edema, no shortness of breath Gastrointestinal: No new onset incontinence, normal bowel movements reported Genitourinary: No new onset incontinence Musculoskeletal: Neck pain, mid back pain Psychiatric: [Normal mood/affect] Neurological: [Denies weakness in extremities], [denies balance issues] Objective:: Physical Exam: General: Alert and oriented x3, no acute distress, pleasant and cooperative Lungs: Respirations even and unlabored, symmetrical chest expansion Eyes: PERRL Musculoskeletal: Flexion and extension of lumbar [spine] somewhat guarded secondary to pain, [antalgic gait noted] Neurological: Speech clear, no gross sensory deficit skin: Incision sites are clean, well-approximated with sutures intact mild erythema noted at right lateral incision; diffuse rash noted on patient's mid to upper back Assessment:: degenerative disc disease of cervical and thoracic spine with cervical and thoracic radiculopathy symptoms, mid back pain, chronic pain syndrome Plan:: Patient is doing well following his intrathecal pump placement and does not require any adjustment today. I have counseled the patient to watch for any change in symptoms that could demonstrate infection. Patient has been counseled to continue his 6-week postop restrictions of minimal twisting, bending or lifting, no submerging in water until his incisions are fully healed and continue to use his abdominal binder to prevent seroma formation. I have counseled the patient that we will plan on seeing him back in 2 weeks for suture removal and follow-up. Patient has been instructed to contact the clinic with any concerns before the next appointment. Dr. Calderon has reviewed this note and agrees with this plan of care. This note was dictated using voice recognition software and make contain errors or omissions. -- It Is medically necessary for this patient to continue to have their intrathecal pump refilled at regular intervals. This patient had an intrathecal pain pump implanted after meeting criteria of chronic intractable pain for greater than 3 months and failing conservative treatments. Patient has committed and been compliant to the treatment plan and all planned follow up care. Since implantation of the intrathecal pain pump, the patient has had decreased pain and been more functional. Oral medications have been reduced including intake of oral opioids. Patient continues to do well with intrathecal therapy with decrease in pain symptoms and increase in functional status. Stopping intrathecal medications can lead to life threatening withdrawal, seizures, cardiac arrest, severe pain, and possible . Pumps that are not refilled at regular intervals can be damages and cause and need for replacement. We continually titrate dose and concentration to optimize pain relief and function. We are limited in concentration for certain drugs to safely deliver medications through the pump and stay within the recommendations from the Polyanalgesic Consensus Committee Guidelines. Depending on dose and concentration these pumps may need to be refilled sooner than 3 months as we titrate. [facility] Disclaimer: The information contained in this section may have been updated after the patient was seen, as this information can be updated by other users. Medical History Back pain with history of spinal surgery Diabetes HTN (hypertension) Seasonal allergies Surgical History History of back surgery History of knee surgery Family History Other No significant family history Social History Smoking Status: Never smoker alcohol intake: never substance use type: denies use current occupational status: unemployed Travel in the last 8 weeks: None
[2023-11-23 12:33] VITALS: BP 142/100; PULSE 108; RESP 18; O2SAT 96; BMI 39.8
== END ==
LOC: SC.PAIN 09:06
PROVIDERS: PCP Registered Nurse; Visit Provider Nurse Practitioner Family
DX: M50.10 Cervical disc disorder with radiculopathy, unspecified cervical region (principal); M51.14 Intervertebral disc disorders with radiculopathy, thoracic region; G89.4 Chronic pain syndrome; Z97.8 Presence of other specified devices
CPT/HCPCS: 99212; G0463

== ENCOUNTER → 2023-12-07 09:23 | Outpatient (POV) | payer MEDICAID, SELFPAY ==
--- NOTE | 2023-12-07 10:07 | EXP.PAIN.SOA ---
[facility] Pain Management SOAP Note Subjective:: Patient is a pleasant 43-year-old male who presents today for 3 week postop follow-up of intrathecal pain pump placed on 11/17/2023. We are currently treating the patient for degenerative disc disease of cervical and thoracic spine with cervical and thoracic radiculopathy symptoms, mid back pain, chronic pain syndrome. Today he rates his pain a 1 out of 10. He denies any new injury or trauma. He states he still has continued to get good relief with the pump. He states he does feel like he is still being very cautious and not moving around much due to concern that he will start hurting. patient is currently managed with intrathecal morphine 1 mg/mL with a daily dose of 0.0999 mg/day.Patient denies any side effects from this medication. Patient does have a Medtronic spinal cord stimulator in place as well that does help with his lower extremities. His Roberto Carlos has been reviewed and is appropriate. Review of Systems: General: No recent weight changes, no fever, no sleep disturbances Respiratory: No cough, no shortness of air, no recurring pulmonary infections Cardiovascular/peripheral vascular: No chest pain, no palpitations, no edema, no shortness of breath Gastrointestinal: No new onset incontinence, normal bowel movements reported Genitourinary: No new onset incontinence Musculoskeletal: Mid back pain, neck pain Psychiatric: [Normal mood/affect] Neurological: [Denies weakness in extremities], [denies balance issues] Objective:: Physical Exam: General: Alert and oriented x3, no acute distress, pleasant and cooperative Lungs: Respirations even and unlabored, symmetrical chest expansion Eyes: PERRL Musculoskeletal: Flexion and extension of thoracic [spine] somewhat guarded secondary to pain, [antalgic gait noted] Neurological: Speech clear, no gross sensory deficit [facility] 11/14/[address] without contrast Findings: There is no acute fracture or subluxation. There is mild narrowing of the C5-C6 with osteophyte formation. The facets are normally aligned. There are mild annular bulges at multiple levels consistent with degenerative change. The soft tissues are unremarkable. Limited images of the lung apices are unremarkable. Assessment:: Degenerative disc disease of cervical and thoracic spine with cervical and thoracic radiculopathy symptoms, mid back pain, chronic pain syndrome Plan:: Patient continues to do well and with his intrathecal pump and does not need any adjustment at today's visit. Patient's sutures were removed during today's visit and some Steri-Strips applied. I have counseled the patient to continue his postop restrictions for the full 6 weeks. Patient acknowledges understanding. I did also review over the patient's most recent CT imaging of his cervical spine. Patient will follow-up in 1 month for reevaluation of symptoms and plan of care. Patient has been instructed to contact the clinic with any concerns before the next appointment. Dr. Calderon has reviewed this note and agrees with this plan of care. This note was dictated using voice recognition software and make contain errors or omissions. -- It Is medically necessary for this patient to continue to have their intrathecal pump refilled at regular intervals. This patient had an intrathecal pain pump implanted after meeting criteria of chronic intractable pain for greater than 3 months and failing conservative treatments. Patient has committed and been compliant to the treatment plan and all planned follow up care. Since implantation of the intrathecal pain pump, the patient has had decreased pain and been more functional. Oral medications have been reduced including intake of oral opioids. Patient continues to do well with intrathecal therapy with decrease in pain symptoms and increase in functional status. Stopping intrathecal medications can lead to life threatening withdrawal, seizures, cardiac arrest, severe pain, and possible . Pumps that are not refilled at regular intervals can be damages and cause and need for replacement. We continually titrate dose and concentration to optimize pain relief and function. We are limited in concentration for certain drugs to safely deliver medications through the pump and stay within the recommendations from the Polyanalgesic Consensus Committee Guidelines. Depending on dose and concentration these pumps may need to be refilled sooner than 3 months as we titrate. [facility] Disclaimer: The information contained in this section may have been updated after the patient was seen, as this information can be updated by other users. Medical History Back pain with history of spinal surgery Diabetes HTN (hypertension) Seasonal allergies Surgical History History of back surgery History of knee surgery Family History Other No significant family history Social History Smoking Status: Never smoker alcohol intake: never substance use type: denies use current occupational status: unemployed Travel in the last 8 weeks: None
[2023-12-07 10:56] VITALS: BP 150/99; PULSE 98; RESP 20; O2SAT 98; BMI 36.9
== END ==
LOC: SC.PAIN 09:24
PROVIDERS: Visit Provider Nurse Practitioner Family
DX: M50.10 Cervical disc disorder with radiculopathy, unspecified cervical region (principal); M51.14 Intervertebral disc disorders with radiculopathy, thoracic region; G89.4 Chronic pain syndrome; Z97.8 Presence of other specified devices; Z48.02 Encounter for removal of sutures
CPT/HCPCS: 99212; 99213; G0463

== ENCOUNTER 2024-01-08 09:08 | Outpatient (POV) | payer MEDICAID, SELFPAY ==
--- NOTE | 2024-01-08 09:36 | EXP.PAIN.PRO ---
Procedure Date: 01/08/24 Time: 09:36 Anesthesiologist:: Becca Isaac APRN Complications:: None Pre-procedure Diagnosis:: Degenerative disc disease of cervical and thoracic spine with cervical and thoracic radiculopathy symptoms, chronic pain syndrome Post-procedure Diagnosis:: Same Indications for Procedure:: Patient is a pleasant 43-year-old male who presents today for intrathecal adjustment and reprogram. Today he rates his pain a 3 out of 10. Patient denies any new trauma or injury. He does state that he has started to move around a little bit more and is experiencing more pain in and around his mid back as well as overall he is still much better than when he started prior to having his intrathecal pain pump implanted. He is currently managed with morphine 1 mg/mL with a daily dose of 0.0999 mg/day. He denies any side effects from this medication. Patient also has a Medtronic spinal cord stimulator in place for his low back and lumbar radiculopathy symptoms. Patient does state that occasionally he will have his right hand lock up for a couple of seconds and is unsure if this was related to his overall neck pain. Patient does have questions regarding starting back at the gym or chiropractor therapy. His Roberto Carlos has been reviewed and is appropriate. Physical Exam: General: Alert and oriented x3, no acute distress, pleasant and cooperative Lungs: Respirations even and unlabored, symmetrical chest expansion Eyes: PERRL Musculoskeletal: Flexion and extension of thoracic [spine] somewhat guarded secondary to pain, [antalgic gait noted] Neurological: Speech clear, no gross sensory deficit Procedure Details:: Informed consent was obtained and the risk and benefits of the procedure were explained to the patient. Patient was taken to the procedure room where noninvasive monitoring was placed including noninvasive blood pressure cuff and pulse oximeter. Patient's pump was interrogated and was reprogrammed to morphine 0.1098 mg/day. The patient tolerated the procedure well with no complications. Plan and Disposition:: Patient tolerated his intrathecal increase with no complications and was discharged neurologically intact. I have discussed with the patient if he continues to have right hand symptoms with occasional locking up of his thumb and index and middle finger that I have discussed with the patient that it may be beneficial to order an EMG test through the neurologist. We will follow-up with this in future. I have counseled the patient that he can start getting going back to the gym and if he would like to see a chiropractor it is up to him. I have counseled to make sure that he lets the chiropractor no of his implantable devices in current condition. Patient will return to clinic in 2 weeks for reevaluation of symptoms and plan of care. Patient has been instructed to contact the clinic with any concerns before the next appointment. Dr. Calderon has reviewed this note and agrees with this plan of care. This note was dictated using voice recognition software and make contain errors or omissions. -- It Is medically necessary for this patient to continue to have their intrathecal pump refilled at regular intervals. This patient had an intrathecal pain pump implanted after meeting criteria of chronic intractable pain for greater than 3 months and failing conservative treatments. Patient has committed and been compliant to the treatment plan and all planned follow up care. Since implantation of the intrathecal pain pump, the patient has had decreased pain and been more functional. Oral medications have been reduced including intake of oral opioids. Patient continues to do well with intrathecal therapy with decrease in pain symptoms and increase in functional status. Stopping intrathecal medications can lead to life threatening withdrawal, seizures, cardiac arrest, severe pain, and possible . Pumps that are not refilled at regular intervals can be damages and cause and need for replacement. We continually titrate dose and concentration to optimize pain relief and function. We are limited in concentration for certain drugs to safely deliver medications through the pump and stay within the recommendations from the Polyanalgesic Consensus Committee Guidelines. Depending on dose and concentration these pumps may need to be refilled sooner than 3 months as we titrate.
[2024-01-08 10:11] VITALS: BP 138/95; PULSE 104; RESP 18; BMI 36.3
== END 2024-01-08 23:59 | disposition home or self-care (01) ==
PROVIDERS: Visit Provider Nurse Practitioner Family
DX: M50.10 Cervical disc disorder with radiculopathy, unspecified cervical region (principal); M51.14 Intervertebral disc disorders with radiculopathy, thoracic region; G89.4 Chronic pain syndrome; Z97.8 Presence of other specified devices; Z45.1 Encounter for adjustment and management of infusion pump
CPT/HCPCS: 62368; 99212; G0463

== ENCOUNTER 2024-01-22 09:23 | Outpatient (POV) | payer MEDICAID, SELFPAY ==
--- NOTE | 2024-01-22 09:56 | A.OFFVIS_ITS ---
[facility] Pain Management SOAP Note Subjective:: Patient is a pleasant 43-year-old male who presents today for follow-up. He rates his pain 8 out of 10. Patient denies any new trauma or injury. He does state that he has bumps his intrathecal device once and did feel it move which felt a little strange however denies any significant injury that caused bruising or other pain issues. He does state from our last visit when we did increase his pump that by the time he got home he was very fatigued and did lay down and take a nap and states that once he was up and awake he did have significant relief and was not experiencing continued fatigue. Patient is currently managed with morphine 1 mg/mm with a daily dose of 0.1098 mg/day. He denies any side effects from this medication. Patient does have a Medtronic spinal cord stimulator in place however he states that he has not needed this device so it has been off. His Roberto Carlos has been reviewed and is appropriate. Review of Systems: General: No recent weight changes, no fever, no sleep disturbances Respiratory: No cough, no shortness of air, no recurring pulmonary infections Cardiovascular/peripheral vascular: No chest pain, no palpitations, no edema, no shortness of breath Gastrointestinal: No new onset incontinence, normal bowel movements reported Genitourinary: No new onset incontinence Musculoskeletal: Mid back pain Psychiatric: [Normal mood/affect] Neurological: [Denies weakness in extremities], [denies balance issues] Objective:: Physical Exam: General: Alert and oriented x3, no acute distress, pleasant and cooperative Lungs: Respirations even and unlabored, symmetrical chest expansion Eyes: PERRL Musculoskeletal: Flexion and extension of thoracic [spine] somewhat guarded secondary to pain, [antalgic gait noted] Neurological: Speech clear, no gross sensory deficit Assessment:: Degenerative disc disease of cervical and thoracic spine with cervical and thoracic radiculopathy symptoms, chronic pain syndrome, lumbar radiculopathy symptoms Plan:: Patient continues to do well following his intrathecal pain pump placement. Patient's incisions are fully healed. I have counseled the patient that we will see him back at his next intrathecal refill appointments. He has been counseled if he needs additional adjustment he can call our office to move up his appointment. We will see the patient back in the clinic at the next intrathecal refill. Patient has been instructed to contact the clinic with any concerns before the next appointment. Dr. Calderon has reviewed this note and agrees with this plan of care. This note was dictated using voice recognition software and make contain errors or omissions. -- It Is medically necessary for this patient to continue to have their intrathecal pump refilled at regular intervals. This patient had an intrathecal pain pump implanted after meeting criteria of chronic intractable pain for greater than 3 months and failing conservative treatments. Patient has committed and been compliant to the treatment plan and all planned follow up care. Since implantation of the intrathecal pain pump, the patient has had decreased pain and been more functional. Oral medications have been reduced including intake of oral opioids. Patient continues to do well with intrathecal therapy with decrease in pain symptoms and increase in functional status. Stopping intrathecal medications can lead to life threatening withdrawal, seizures, cardiac arrest, severe pain, and possible . Pumps that are not refilled at regular intervals can be damages and cause and need for replacement. We continually titrate dose and concentration to optimize pain relief and function. We are limited in concentration for certain drugs to safely deliver medications through the pump and stay within the recommendations from the Polyanalgesic Consensus Committee Guidelines. Depending on dose and concentration these pumps may need to be refilled sooner than 3 months as we titrate. [facility] Disclaimer: The information contained in this section may have been updated after the patient was seen, as this information can be updated by other users. Medical History Back pain with history of spinal surgery HTN (hypertension) Seasonal allergies Diabetes Surgical History History of knee surgery History of back surgery Family History Other No significant family history Social History Smoking Status: Never smoker alcohol intake: never substance use type: denies use current occupational status: other Travel in the last 8 weeks: None
[2024-01-22 10:27] VITALS: BP 170/100; PULSE 97; RESP 18; O2SAT 97; BMI 36.3
== END 2024-01-22 23:59 ==
LOC: SC.PAIN 09:24
PROVIDERS: PCP Registered Nurse; Visit Provider Nurse Practitioner Family
DX: M50.10 Cervical disc disorder with radiculopathy, unspecified cervical region (principal); M51.14 Intervertebral disc disorders with radiculopathy, thoracic region; G89.4 Chronic pain syndrome; Z97.8 Presence of other specified devices
CPT/HCPCS: 99212; G0463

== ENCOUNTER 2024-02-01 09:10 | Outpatient (POV) | payer MEDICAID, SELFPAY ==
--- NOTE | 2024-02-01 09:16 | EXP.PAIN.PRO ---
Procedure Date: 02/01/24 Time: 09:16 Anesthesiologist:: Becca Isaac APRN Complications:: None Pre-procedure Diagnosis:: Degenerative disc disease of cervical and thoracic spine with thoracic radiculopathy symptoms, low back pain with lumbar radiculopathy, chronic pain syndrome Post-procedure Diagnosis:: Same Indications for Procedure:: Patient is a pleasant 43-year-old male who presents today for intrathecal adjustment and reprogram. Today he rates his pain a 4 out of 10. Patient denies any new trauma or injury. He does state that he was starting to increase his activity from our last conversation. Patient states that he was doing things around the house and did have increased pain overall. He states that he did have to sit and rest however it did not seem to improve. He states that he was having canceled this appointment if it gotten better from Monday however it really has not. He is currently managed with morphine 1 mg/mL with a daily dose of 0.1098 mg/day. He denies any side effects from this medication. Patient also has a [employer] spinal cord stimulator in place for his low back and lumbar radiculopathy symptoms. His Roberto Carlos has been reviewed and is appropriate. Physical Exam: General: Alert and oriented x3, no acute distress, pleasant and cooperative Lungs: Respirations even and unlabored, symmetrical chest expansion Eyes: PERRL Musculoskeletal: Flexion and extension of thoracic [spine] somewhat guarded secondary to pain, [antalgic gait noted] Neurological: Speech clear, no gross sensory deficit Procedure Details:: Informed consent was obtained and the risk and benefits of the procedure were explained to the patient. Patient was taken to the procedure room where noninvasive monitoring was placed including noninvasive blood pressure cuff and pulse oximeter. Patient's pump was interrogated and was reprogrammed to morphine 0.1208 mg/day. The patient tolerated the procedure well with no complications. Plan and Disposition:: Patient tolerated his intrathecal increase with no complications and was discharged neurologically intact. Patient was also set up on his PTM device with up to 4 boluses available in a 24-hour. Patient will return to clinic in 1 month for reevaluation of symptoms and plan of care. We will see the patient back in the clinic at the next intrathecal refill. Patient has been instructed to contact the clinic with any concerns before the next appointment. Dr. Calderon has reviewed this note and agrees with this plan of care. This note was dictated using voice recognition software and make contain errors or omissions. -- It Is medically necessary for this patient to continue to have their intrathecal pump refilled at regular intervals. This patient had an intrathecal pain pump implanted after meeting criteria of chronic intractable pain for greater than 3 months and failing conservative treatments. Patient has committed and been compliant to the treatment plan and all planned follow up care. Since implantation of the intrathecal pain pump, the patient has had decreased pain and been more functional. Oral medications have been reduced including intake of oral opioids. Patient continues to do well with intrathecal therapy with decrease in pain symptoms and increase in functional status. Stopping intrathecal medications can lead to life threatening withdrawal, seizures, cardiac arrest, severe pain, and possible . Pumps that are not refilled at regular intervals can be damages and cause and need for replacement. We continually titrate dose and concentration to optimize pain relief and function. We are limited in concentration for certain drugs to safely deliver medications through the pump and stay within the recommendations from the Polyanalgesic Consensus Committee Guidelines. Depending on dose and concentration these pumps may need to be refilled sooner than 3 months as we titrate.
[2024-02-01 09:42] VITALS: BP 151/107; PULSE 84; RESP 18; O2SAT 97; BMI 36.3
== END 2024-02-01 23:59 | disposition home or self-care (01) ==
PROVIDERS: Visit Provider Nurse Practitioner Family
DX: M50.30 Other cervical disc degeneration, unspecified cervical region (principal); M51.14 Intervertebral disc disorders with radiculopathy, thoracic region; M54.16 Radiculopathy, lumbar region; M54.50 Low back pain, unspecified; G89.4 Chronic pain syndrome; Z97.8 Presence of other specified devices; Z45.1 Encounter for adjustment and management of infusion pump
CPT/HCPCS: 62368; 99213; G0463

== ENCOUNTER 2024-03-04 09:12 | Outpatient (POV) | payer MEDICAID, SELFPAY ==
--- NOTE | 2024-03-04 09:36 | P.PCN_ITS ---
Procedure Date: 03/04/24 Time: 09:36 Anesthesiologist:: Becca Isaac APRN Complications:: None Pre-procedure Diagnosis:: Degenerative disc disease of cervical and thoracic spine with cervical and thoracic radiculopathy symptoms, lumbar radiculopathy symptoms, low back pain, hip pain Post-procedure Diagnosis:: same Indications for Procedure:: Patient is a pleasant 43-year-old male who presents today for intrathecal adjustment and reprogram. Today he rates his pain a 4 out of 10. Patient denies any new trauma or injury. He does state that he has been experiencing more hip pain that does radiate down his leg. Patient states that he does typically use his Medtronic stimulator for this pain and that it does help however he feels like it is aggravating his overall back pain. Patient states with the stimulator he can turn it up high enough that it does provide improvement however he cannot consistently stay that high. Patient states that this has been going on the last week and a half with the worsening pain. He has used a couple of his boluses. He states it is harder to sleep due to the pain and that he does also state that he continually seems to hit in and around the right lateral edge of his pump and it is staying tender to touch. Patient states that his said it looked fine however he did want us to look at it today. He is currently managed with morphine 1 mg/mL with a daily dose of 0.1208 mg/day. He denies any side effects from this medication. His Roberto Carlos has been reviewed and is appropriate. Physical Exam: General: Alert and oriented x3, no acute distress, pleasant and cooperative Lungs: Respirations even and unlabored, symmetrical chest expansion Eyes: PERRL Musculoskeletal: Flexion and extension of thoracic [spine] somewhat guarded secondary to pain, [antalgic gait noted] Neurological: Speech clear, no gross sensory deficit Procedure Details:: Informed consent was obtained and the risk and benefits of the procedure were explained to the patient. Patient was taken to the procedure room where noninvasive monitoring was placed including noninvasive blood pressure cuff and pulse oximeter. Patient's pump was interrogated and was reprogrammed to morphine 0.1331 mg/day. The patient tolerated the procedure well with no complications. Plan and Disposition:: Patient tolerated his intrathecal increase with no complications and was [facility] neurologically intact. Patient does have his next intrathecal refill date coming up at the beginning of March. I have discussed with the patient regarding his point tenderness around the right lateral edge of his pump device that we can try trigger point injections if it does not get better. I have recommended that he try his compounded cream on this area first. We will follow-up with him at future visits regarding this. Patient's pump site is clean, dry with no acute findings or erythema noted. We will see the patient back in the clinic at the next intrathecal refill. Patient has been instructed to contact the clinic with any concerns before the next appointment. Dr. Calderon has reviewed this note and agrees with this plan of care. This note was dictated using voice recognition software and make contain errors or omissions. -- It Is medically necessary for this patient to continue to have their intrathecal pump refilled at regular intervals. This patient had an intrathecal pain pump implanted after meeting criteria of chronic intractable pain for greater than 3 months and failing conservative treatments. Patient has committed and been compliant to the treatment plan and all planned follow up care. Since implantation of the intrathecal pain pump, the patient has had decreased pain and been more functional. Oral medications have been reduced including intake of oral opioids. Patient continues to do well with intrathecal therapy with decrease in pain symptoms and increase in functional status. Stopping intrathecal medications can lead to life threatening withdrawal, seizures, cardiac arrest, severe pain, and possible . Pumps that are not refilled at regular intervals can be damages and cause and need for replacement. We continually titrate dose and concentration to optimize pain relief and function. We are limited in concentration for certain drugs to safely deliver medications through the pump and stay within the recommendations from the Polyanalgesic C [employer] Committee Guidelines. Depending on dose and concentration these pumps may need to be refilled sooner than 3 months as we titrate.
[2024-03-04 10:51] VITALS: BP 143/100; PULSE 90; RESP 18; TEMP 36.6; O2SAT 98; BMI 37.3
== END 2024-03-04 23:59 | disposition home or self-care (01) ==
PROVIDERS: PCP Registered Nurse; Visit Provider Nurse Practitioner Family
DX: M50.10 Cervical disc disorder with radiculopathy, unspecified cervical region (principal); M51.14 Intervertebral disc disorders with radiculopathy, thoracic region; M54.50 Low back pain, unspecified; M25.559 Pain in unspecified hip; Z97.8 Presence of other specified devices; Z45.1 Encounter for adjustment and management of infusion pump
CPT/HCPCS: 62368; 99212; G0463

== ENCOUNTER 2024-03-12 11:30 | Day surgery (SDC) | payer MEDICAID, SELFPAY ==
[2024-03-12 11:45] VITALS: BP 165/96; PULSE 86; RESP 18; TEMP 36.7; O2SAT 99; BMI 36.9
[2024-03-12 12:08] VITALS: BP 140/92; PULSE 88; RESP 20; O2SAT 99
[2024-03-12 12:12] VITALS: BP 144/110; PULSE 97; RESP 18; O2SAT 97
--- NOTE | 2024-03-12 12:20 | EXP.PAIN.PRO ---
Procedure Date: 03/12/24 Time: 12:00 Anesthesiologist:: Wing Walters CRNA Complications:: None Pre-procedure Diagnosis:: Degenerative disc lumbar spine multilevels. Lumbar radiculopathy. Lumbar postlaminectomy syndrome. Degenerative disc cervical spine with cervical radiculopathy. Post-procedure Diagnosis:: Same. Indications for Procedure:: Patient is a very pleasant 43-year-old male comes our clinic today for intrathecal pain pump interrogation refill. Patient currently being managed with morphine sulfate 1 mg/mL at a rate of 0.1331 mg/day. He is doing very well with his current settings. He is not requesting any changes. He is not reporting any side effects or complications. Procedure Details:: Details of the procedure explained to the patient. The patient taken to procedure room placed in sitting position. They over the pumps cleansed using chlorhexidine's cleansing solution. The pump was interrogated. The pump was accessed with ease using a 22-gauge inch and half needle. 6 mL of solution was withdrawn discarded appropriately. The pump was then filled with 20 cc of a solution containing morphine sulfate 1 mg/mL. Rate will continue at 0.1331 mg/day. Patient tolerated procedure without difficulty. There are no complications Plan and Disposition:: Patient was discharged without incident.
[2024-03-12 13:37] LABS: Amphetamine/Metha Screen,Urine Negative ng/ml (<1000)
[2024-03-12 13:38] LABS: Barbiturates Screen,Urine Negative ng/ml (<200); Benzodiazepines Screen,Urine Negative ng/ml (<200)
[2024-03-12 13:40] LABS: Opiate Screen,Urine Negative ng/ml (<300); Phencyclidine Screen,Urine Negative ng/ml (<25)
[2024-03-12 13:42] LABS: Cannabinoid Screen,Urine Negative ng/ml (<50); Cocaine Screen,Urine Negative ng/ml (<300)
[2024-03-12 13:43] LABS: Methadone Screen,Urine Negative ng/ml (<300)
== END 2024-03-12 12:12 | disposition home or self-care (01) ==
LOC: SC.PAINP 11:31
PROVIDERS: Anesthesiology; PCP Registered Nurse; Visit Provider Nurse Anesthetist, Certified Registered
DX: M51.16 Intervertebral disc disorders with radiculopathy, lumbar region (principal); M96.1 Postlaminectomy syndrome, not elsewhere classified; M50.10 Cervical disc disorder with radiculopathy, unspecified cervical region; Z97.8 Presence of other specified devices; Z45.1 Encounter for adjustment and management of infusion pump
CPT/HCPCS: 80307; 80361; 80365; 95991; G0480

== ENCOUNTER 2024-03-28 11:03 | Outpatient (POV) | payer MEDICAID, SELFPAY ==
[2024-03-28 11:46] VITALS: BP 140/96; PULSE 100; RESP 18; O2SAT 97; BMI 36.9
--- NOTE | 2024-03-28 13:21 | EXP.PAIN.SOA ---
[facility] Pain Management SOAP Note Subjective:: Patient is a pleasant 43-year-old male who presents today for follow-up. Today he rates his pain a 4 out of 10. Patient states that overall the pain pump does seem to be providing coverage however he states that there was 1 day randomly in the last month or so that he was laid back in his recliner and all of a sudden he had a spasm in and around mid back that was very sharp however it only lasted a couple of seconds and then went away. He states that he is not really sure what that was related to and that he has not had any additional problems with that since. He does however state that he has continued to have worsening pain in and around his low back and into his hips and leg primarily the right. He states this is all new and he is unsure whether or not if this is just progression of the degenerative disc. Patient states that he is just felt like he has had more weakness in his legs. He states that he frequently tosses and turns during the night due to the worsening pain of him trying to sleep on his hips. He states he often will have some sort of numbness down below into the thigh or below the knee. Patient does state that he is also curious whether or not if he will be able to have MRI with him his spinal cord stimulator. This was put can from a previous provider. Patient is currently managed with morphine 1 mg/mL with a daily dose of 0.1331 mg/day. He denies any side effects from this medication. His Roberto Carlos has been reviewed and is appropriate. Review of Systems: General: No recent weight changes, no fever, no sleep disturbances Respiratory: No cough, no shortness of air, no recurring pulmonary infections Cardiovascular/peripheral vascular: No chest pain, no palpitations, no edema, no shortness of breath Gastrointestinal: No new onset incontinence, normal bowel movements reported Genitourinary: No new onset incontinence Musculoskeletal: Low back pain, bilateral hip pain, leg pain Psychiatric: [Normal mood/affect] Neurological: [Denies weakness in extremities], [denies balance issues] Objective:: Physical Exam: General: Alert and oriented x3, no acute distress, pleasant and cooperative Lungs: Respirations even and unlabored, symmetrical chest expansion Eyes: PERRL Musculoskeletal: Flexion and extension of lumbar [spine] somewhat guarded secondary to pain, [antalgic gait noted] Neurological: Speech clear, no gross sensory deficit Assessment:: Degenerative disc disease of cervical, thoracic and lumbar spine with cervical, thoracic and lumbar radiculopathy symptoms, bilateral hip pain Plan:: I discussed with the patient due to his worsening pain in his low back and legs that it may be additional progression of the degenerative disc. I have counseled the patient that it may be very beneficial to order the advanced imaging however we will verify with [employer] credit resolution representative that his SCS device is compatible with our MRI machine. [facility]. I have also discussed with the patient we will plan on having [employer] credit resolution representative present at his next follow-up for additional reprogramming. Patient acknowledges understanding and agrees with this plan of care. Patient will return to clinic in 2 weeks for reevaluation of symptoms and plan of care. Patient has been instructed to contact the clinic with any concerns before the next appointment. Dr. Calderon has reviewed this note and agrees with this plan of care. This note was dictated using voice recognition software and make contain errors or omissions. [facility] Disclaimer: The information contained in this section may have been updated after the patient was seen, as this information can be updated by other users. Medical History Back pain with history of spinal surgery HTN (hypertension) Seasonal allergies Diabetes Surgical History History of knee surgery History of back surgery Family History Other No significant family history Social History Smoking Status: Never smoker alcohol intake: never substance use type: denies use current occupational status: other Travel in the last 8 weeks: None
== END 2024-03-28 23:59 | disposition home or self-care (01) ==
LOC: SC.PAIN 11:04
PROVIDERS: Visit Provider Nurse Practitioner Family
DX: M50.10 Cervical disc disorder with radiculopathy, unspecified cervical region (principal); M51.14 Intervertebral disc disorders with radiculopathy, thoracic region; M51.16 Intervertebral disc disorders with radiculopathy, lumbar region; M25.551 Pain in right hip; M25.552 Pain in left hip; Z96.82 Presence of neurostimulator
CPT/HCPCS: 99212; G0463

== ENCOUNTER 2024-04-15 08:53 | Outpatient (POV) | payer MEDICAID, SELFPAY ==
[2024-04-15 09:23] VITALS: BP 170/107; PULSE 100; RESP 18; O2SAT 99; BMI 37.0
--- NOTE | 2024-04-15 09:37 | P.PCN_ITS ---
Procedure Date: 04/15/24 Time: 09:15 Anesthesiologist:: Becca Isaac APRN Complications:: None Pre-procedure Diagnosis:: Degenerative disc disease of cervical and thoracic spine with cervical and thoracic radiculopathy symptoms, lumbar radiculopathy symptoms, low back pain, hip pain Post-procedure Diagnosis:: same Indications for Procedure:: Patient is a pleasant 43-year-old male who presents today for intrathecal adjustment and reprogram. Today he rates his pain a 4 out of 10. Patient denies any new trauma or injury. Patient does state the last 2 weeks when he came back from vacation he has had increased pain. He states the random pain that he had been described to us at his last visit as sharp in and around his mid back area has happened about 4 more times. Patient states that he did walk more during vacation and is unsure if this had anything to do with it. Patient does also have a stimulator in place with [employer]. Patient is planning on being reprogrammed today. He is currently managed with morphine 1 mg/mL with a daily dose of 0.1331 mg/day. He denies any side effects from this medication. His Roberto Carlos has been reviewed and is appropriate. Physical Exam: General: Alert and oriented x3, no acute distress, pleasant and cooperative Lungs: Respirations even and unlabored, symmetrical chest expansion Eyes: PERRL Musculoskeletal: Flexion and extension of thoracic [spine] somewhat guarded secondary to pain, [antalgic gait noted] Neurological: Speech clear, no gross sensory deficit Procedure Details:: Informed consent was obtained and the risk and benefits of the procedure were explained to the patient. Patient was taken to the procedure room where noninvasive monitoring was placed including noninvasive blood pressure cuff and pulse oximeter. Patient's pump was interrogated and was reprogrammed to m orphine 0.153 mg/day. The patient tolerated the procedure well with no complications. Plan and Disposition:: Patient tolerated his intrathecal increase with no complications and was discharged neurologically intact. Patient was able to have his stimulator reprogrammed by [employer] liability claims representative and possibly has better coverage now. Patient was given a couple different settings to try at night. Patient was also gone over and change in the stimulator settings where he can do a full body MRI. [employer] liability claims representative did state that they could fill out a form and have one of our providers side to be put in his EMR record. Patient is agreeable to this. Patient will return to clinic in 2 weeks for reevaluation of symptoms and plan of care. Patient's blood pressure initially was high 170/107 and we did recheck this blood pressure with 168/100. Patient was counseled to continue to monitor his blood pressure at home however he does state that anytime he goes home that it is nothing like medicine does believe it is whitecoat syndrome. Patient was counseled as a precaution to always follow-up with his primary care in case he does need to be put on different medication if this is something that is continually happening. We will see the patient back in the clinic at the next intrathecal refill. Patient has been instructed to contact the clinic with any concerns before the next appointment. Dr. Calderon has reviewed this note and agrees with this plan of care. This note was dictated using voice recognition software and make contain errors or omissions. -- It Is medically necessary for this patient to continue to have their intrathecal pump refilled at regular intervals. This patient had an intrathecal pain pump implanted after meeting criteria of chronic intractable pain for greater than 3 months and failing conservative treatments. Patient has committed and been compliant to the treatment plan and all planned follow up care. Since implantation of the intrathecal pain pump, the patient has had decreased pain and been more functional. Oral medications have been reduced including intake of oral opioids. Patient continues to do well with intrathecal therapy with decrease in pain symptoms and increase in functional status. Stopping intrathecal medications can lead to life threatening withdrawal, seizures, cardiac arrest, severe pain, and possible . Pumps that are not refilled at regular intervals can be damages and cause and need for replacement. We continually titrate dose and concentration to optimize pain relief and function. We are limited in concentration for certain drugs to safely deliver medications through the pump and stay within the recommendations from the Polyanalgesic Consensus Committee Guidelines. Depending on dose and concentration these pumps may need to be refilled sooner than 3 months as we titrate.
== END 2024-04-15 23:59 | disposition home or self-care (01) ==
PROVIDERS: Visit Provider Nurse Practitioner Family
DX: M50.10 Cervical disc disorder with radiculopathy, unspecified cervical region (principal); M51.14 Intervertebral disc disorders with radiculopathy, thoracic region; M54.50 Low back pain, unspecified; Z97.8 Presence of other specified devices; Z45.1 Encounter for adjustment and management of infusion pump
CPT/HCPCS: 62368; 99212; 99213; G0463

== ENCOUNTER 2024-05-01 11:22 | Outpatient (POV) | payer MEDICAID, SELFPAY ==
[2024-05-01 11:36] VITALS: BP 155/95; PULSE 92; RESP 16; O2SAT 97; BMI 36.3
--- NOTE | 2024-05-01 11:56 | EXP.PAIN.PRO ---
Procedure Date: 05/01/24 Time: 11:57 Anesthesiologist:: Becca Isaac APRN Complications:: None Pre-procedure Diagnosis:: Degenerative disc disease of the cervical and thoracic spine with cervical and thoracic radiculopathy symptoms, lumbar radiculopathy symptoms, low back pain, hip pain Post-procedure Diagnosis:: Same Indications for Procedure:: Patient is a pleasant 43-year-old male who presents today for intrathecal adjustment and reprogram. Today he rates his pain a 4 out of 10. He states from our last visit were regarding the additional increase on his pump that it did help however the weekend after he had his visit with those that he had 2 days of severe pain unrelated to any new trauma or injury. He does state the last few days have been much better. He does state that he still has trouble with his spinal cord stimulator that when he lays down he gets more severe pain going down his right leg. Patient feels like this is a nerve pain. He also states that he has been having a little bit of constipation. Patient did have his [employer] stimulator reprogrammed at the last visit and states that some of the stimulation is really helping however that the adjustments being made to see if it would improve his symptoms lying down did not make any changes. Patient is currently managed with morphine 1 mg/mL with a daily dose of morphine 0.153 mg/day. He denies any side effects from this medication. He feels like he still could use some additional adjustment his Roberto Carlos has been reviewed and is appropriate. Physical Exam: General: Alert and oriented x3, no acute distress, pleasant and cooperative Lungs: Respirations even and unlabored, symmetrical chest expansion Eyes: PERRL Musculoskeletal: Flexion and extension of thoracic [spine] somewhat guarded secondary to pain, [antalgic gait noted] Neurological: Speech clear, no gross sensory deficit Procedure Details:: Informed consent was obtained and the risk and benefits of the procedure were explained to the patient. Patient was taken to the procedure room where noninvasive monitoring was placed including noninvasive blood pressure cuff and pulse oximeter. Patient's pump was interrogated and was reprogrammed to morphine 0.1911 mg/day. The patient tolerated the procedure well with no complications. Plan and Disposition:: Patient tolerated his intrathecal increase with no complications and was discharged neurologically intact. I did discuss with the patient that I will have him come back in 2 weeks for additional reprogramming and adjustment as well as stimulator reprogramming. Patient was also supposed to get an MRI form from [employer] saying that he can get a full body imaging. I did reach out to the field representatives director and they are stating they will make sure that it is here by Monday. Patient will return to clinic in 2 weeks for reevaluation of symptoms and plan of care. Patient has been instructed to contact the clinic with any concerns before the next appointment. Dr. Calderon has reviewed this note and agrees with this plan of care. This note was dictated using voice recognition software and make contain errors or omissions. -- It Is medically necessary for this patient to continue to have their intrathecal pump refilled at regular intervals. This patient had an intrathecal pain pump implanted after meeting criteria of chronic intractable pain for greater than 3 months and failing conservative treatments. Patient has committed and been compliant to the treatment plan and all planned follow up care. Since implantation of the intrathecal pain pump, the patient has had decreased pain and been more functional. Oral medications have been reduced including intake of oral opioids. Patient continues to do well with intrathecal therapy with decrease in pain symptoms and increase in functional status. Stopping intrathecal medications can lead to life threatening withdrawal, seizures, cardiac arrest, severe pain, and possible . Pumps that are not refilled at regular intervals can be damages and cause and need for replacement. We continually titrate dose and concentration to optimize pain relief and function. We are limited in concentration for certain drugs to safely deliver medications through the pump and stay within the recommendations from the Polyanalgesic Consensus Committee Guidelines. Depending on dose and concentration these pumps may need to be refilled sooner than 3 months as we titrate.
== END 2024-05-01 23:59 | disposition home or self-care (01) ==
PROVIDERS: Visit Provider Nurse Practitioner Family
DX: M96.1 Postlaminectomy syndrome, not elsewhere classified (principal)
CPT/HCPCS: 62368; 99213; G0463

== ENCOUNTER 2024-05-16 14:48 | Outpatient (POV) | payer MEDICAID, SELFPAY ==
[2024-05-16 15:20] VITALS: BP 157/95; PULSE 89; RESP 16; O2SAT 96; BMI 36.3
--- NOTE | 2024-05-16 15:34 | A.OFFVIS_ITS ---
[facility] Disclaimer: The information contained in this section may have been updated after the patient was seen, as this information can be updated by other users. Medical History (Updated 05/16/24 @ 15:36 by Becca Isaac APRN) Back pain with history of spinal surgery HTN (hypertension) Seasonal allergies Diabetes Surgical History History of knee surgery History of back surgery Family History Other No significant family history Social History Smoking Status: Never smoker alcohol intake: never substance use type: denies use current occupational status: other Travel in the last 8 weeks: None PM Subjective & Objective Subjective Subjective:: Patient is a pleasant 43-year-old male who presents today for intrathecal reprogramming and adjustment and follow-up. Today he rates his pain a 4 out of 10. He denies any new trauma or injury. He does state that he still continues to have the pain occasionally up in his mid back when he goes to lay down so he has been turning off his stimulator due to the worsening pain they are. Patient does also state that he gets a sharp shooting pain when he sits upright. Patient states this is not new and has been going on since he has had his stimulator. Patient did have this placed in 2020 from an outside provider. He does state that the programming helps however would like additional adjustment. Patient does also have a intrathecal pain pump in place with morphine 1 mg/mL and his daily dose of 0.1911 mg/day. He denies any side effects to this medication and feels like it is helping currently. Patient does state however he would like to get the advanced imaging now that he is getting documentation that he cannot have a full body MRI with his implanted devices. His Roberto Carlos has been reviewed and is appropriate. Review of Systems: General: No recent weight changes, no fever, no sleep disturbances Respiratory: No cough, no shortness of air, no recurring pulmonary infections Cardiovascular/peripheral vascular: No chest pain, no palpitations, no edema, no shortness of breath Gastrointestinal: No new onset incontinence, normal bowel movements reported Genitourinary: No new onset incontinence Musculoskeletal: Mid back pain, low back pain Psychiatric: [Normal mood/affect] Neurological: [Denies weakness in extremities], [denies balance issues] Pain at rest (0-10 scale): 4 Objective Objective:: Physical Exam: General: Alert and oriented x3, no acute distress, pleasant and cooperative Lungs: Respirations even and unlabored, symmetrical chest expansion Eyes: PERRL Musculoskeletal: Flexion and extension of lumbar [spine] somewhat guarded secondary to pain, [antalgic gait noted] Neurological: Speech clear, no gross sensory deficit Has patient had previous pain injection?: No Conservative treatment options previously tried: Home exercise plan Length of treatment: Longer than 6 weeks and Prescription medications Length of treatment: Longer than 6 weeks Meds Home Medications and Allergies Home Medications Medication Instructions Recorded Confirmed Type amlodipine 10 mg tablet 10 mg PO DAILY BLOOD PRESSURE 05/03/23 05/16/24 History blood-glucose sensor (FreeStyle 05/03/23 05/16/24 History Lora 3 Sensor device) cetirizine 10 mg tablet 10 mg PO DAILY ALLERGIES 05/03/23 05/16/24 History insulin aspart U-100 100 unit/mL See Rx Instructions .Route 05/03/23 05/16/24 History (3 mL) subcutaneous pen (Novolog .COMPLEX Diabetes FlexPen U-100 Insulin aspart) insulin glargine 100 unit/mL (3 See Rx Instructions .Route 05/03/23 05/16/24 History mL) subcutaneous pen (Lantus .COMPLEX Diabetes Solostar U-100 Insulin) irbesartan 300 mg tablet 300 mg PO DIRECTED BLOOD 05/03/23 05/16/24 History PRESSURE naproxen 500 mg tablet 500 mg PO DIRECTED Pain 05/03/23 05/16/24 History methocarbamol 750 mg tablet 750 mg PO TID . 06/06/23 05/16/24 History morphine (PF) 1 mg/mL injection 1 mg epidural CONT Pain 11/23/23 05/16/24 History solution New Prescriptions to Start Prescriptions: Allergies Allergy/AdvReac Type Severity Reaction Status Date / Time No Known Allergies Allergy Verified 11/17/23 07:26 Assessment and Plan *Assessment and plan (1) Degenerative disc disease, cervical: Status: Acute Category: Medical Code(s): M50.30 - Other cervical disc degeneration, unspecified cervical region (2) Degenerative disc disease, thoracic: Status: Acute Category: Medical Code(s): M51.34 - Other intervertebral disc degeneration, thoracic region (3) Low back pain: Status: Acute Qualifiers: Chronicity: chronic Back pain laterality: bilateral Sciatica presence: without sciatica Qualified Code(s): M54.50 - Low back pain, unspecified; G89.29 - Other chronic pain Category: Medical Code(s): M54.50 - Low back pain, unspecified Plan Patient continues to experience significant pain throughout his mid to low back. I will order x-ray imaging with MRI without contrast to follow-up of his thoracic and lumbar spine. I have counseled the patient if insurance only allows us to do more than that we will do the lumbar spine first since that is what bothers him the most. Patient is agreeable to this. Patient was able to meet with [employer] bilingual sales representative to be reprogrammed with better coverage of his current stimulator. I have also discussed with the patient in future that he may benefit from the updated spinal cord stimulator system of [employer] which does allow for more movement and individual sensing technology. We will follow- up with this in future visits. Patient will return to clinic in 1 month for reevaluation of symptoms and plan of care. Patient has been instructed to contact the clinic with any concerns before the next appointment. Dr. Calderon has reviewed this note and agrees with this plan of care. This note was dictated using voice recognition software and make contain errors or omissions. -- It Is medically necessary for this patient to continue to have their intrathecal pump refilled at regular intervals. This patient had an intrathecal pain pump implanted after meeting criteria of chronic intractable pain for greater than 3 months and failing conservative treatments. Patient has committed and been compliant to the treatment plan and all planned follow up care. Since implantation of the intrathecal pain pump, the patient has had decreased pain and been more functional. Oral medications have been reduced including intake of oral opioids. Patient continues to do well with intrathecal therapy with decrease in pain symptoms and increase in functional status. Stopping intrathecal medications can lead to life threatening withdrawal, seizures, cardiac arrest, severe pain, and possible . Pumps that are not refilled at regular intervals can be damages and cause and need for replacement. We continually titrate dose and concentration to optimize pain relief and function. We are limited in concentration for certain drugs to safely deliver medications through the pump and stay within the recommendations from the Polyanalgesic Consensus Committee Guidelines. Depending on dose and concentration these pumps may need to be refilled sooner than 3 months as we titrate.
== END 2024-05-16 23:59 | disposition home or self-care (01) ==
LOC: SC.PAIN 14:48
PROVIDERS: Visit Provider Nurse Practitioner Family
DX: M50.30 Other cervical disc degeneration, unspecified cervical region (principal); M51.34 Other intervertebral disc degeneration, thoracic region; M54.50 Low back pain, unspecified; G89.29 Other chronic pain; Z97.8 Presence of other specified devices; Z79.891 Long term (current) use of opiate analgesic; E11.9 Type 2 diabetes mellitus without complications; Z79.4 Long term (current) use of insulin
CPT/HCPCS: 99212; G0463

== ENCOUNTER 2024-05-16 16:04 | Outpatient (CLI) | payer MEDICAID, SELFPAY ==
--- NOTE | 2024-05-16 16:09 | XR_ITS ---
FINAL REPORT TECHNIQUE: 3 views CLINICAL HISTORY: upper back pain COMPARISON: None FINDINGS: AP, lateral, and swimmer's views of the thoracic spine were obtained. There is no prior exam for comparison. There is no acute fracture or malalignment. Moderate and severe degenerative changes present with multilevel osteophytes. A spinal stimulator device is present with its tip at the T7-8 level. Vertebral body height is preserved. Paraspinal soft tissues are within normal limits. IMPRESSION: Moderate and severe degenerative change is present. A spinal stimulator device is present with its tip at the T7-8 level. Reviewed, Interpreted and Dictated by Nik Millan III, MD Transcribed by Raysa Brito Authenticated and [facility]
--- NOTE | 2024-05-16 16:09 | XR_ITS ---
FINAL REPORT CLINICAL HISTORY: lower back pain COMPARISON: None FINDINGS: 5 views of the lumbar spine were obtained. There is no evidence of fracture or dislocation. There is mild left curvature of the lumbar spine. Mild and moderate degenerative changes are present. Multilevel osteophytes are present. No paraspinous soft tissue abnormalities identified. IMPRESSION: No acute bony abnormality. Mild and moderate degenerative changes are present as described. Reviewed, Interpreted and Dictated by Nik Millan III, MD Transcribed by Raysa Brito Authenticated and [facility]
== END 2024-05-16 23:59 | disposition home or self-care (01) ==
LOC: RAD 16:05
PROVIDERS: PCP Registered Nurse; Visit Provider Orthopaedic Surgery
DX: M54.6 Pain in thoracic spine (principal); M54.50 Low back pain, unspecified
CPT/HCPCS: 72072; 72110

== ENCOUNTER 2024-06-04 11:15 | Day surgery (SDC) | payer MEDICAID, SELFPAY ==
[2024-06-04 11:28] VITALS: BP 148/110; BP 148/115; PULSE 123; RESP 18; O2SAT 97
[2024-06-04 11:31] VITALS: BP 132/90; PULSE 109; RESP 16; TEMP 36.6; O2SAT 97; BMI 36.3
--- NOTE | 2024-06-04 11:36 | EXP.PAIN.PRO ---
Procedure Date: 06/04/24 Time: 11:20 Anesthesiologist:: Wing Walters CRNA Complications:: None Pre-procedure Diagnosis:: Degenerative disc lumbar spine multilevels. Lumbar radiculopathy. Lumbar postlaminectomy syndrome. Post-procedure Diagnosis:: Same. Indications for Procedure:: Patient is a pleasant 43-year-old male comes our clinic today for intrathecal pain pump interrogation and refill. Patient currently being managed with morphine sulfate 1 mg/mL at a rate of 0.1911 mg/day. He is doing very well with his current settings. He is not requesting any changes. He is not reporting side effects or complications. He rates his pain today 4/10. Procedure Details:: Details of the procedure explained the patient. The patient taken procedure and placed in sitting position. They over the pumps cleansed using chlorhexidine's cleansing solution. The pump was interrogated. The pump was accessed with ease using 22-gauge inch and half needle. 6 mL of solution was withdrawn discarded appropriately. The pump was then filled with 20 cc of a solution containing morphine sulfate 1 mg/mL. The pump rate will continue at 0.1911 mg/day. Patient tolerated procedure without difficulty. There are no complications. Plan and Disposition:: Patient was discharged without incident.
[2024-06-04 11:44] VITALS: BP 137/85; PULSE 98; RESP 16; O2SAT 97
== END 2024-06-04 11:44 | disposition home or self-care (01) ==
PROVIDERS: PCP Registered Nurse; Visit Provider Nurse Anesthetist, Certified Registered
DX: G89.29 Other chronic pain (principal); M51.36 Other intervertebral disc degeneration, lumbar region; M54.16 Radiculopathy, lumbar region; M96.1 Postlaminectomy syndrome, not elsewhere classified
CPT/HCPCS: 95991

== ENCOUNTER 2024-06-11 13:44 | Outpatient (CLI) | payer MEDICAID, SELFPAY ==
--- NOTE | 2024-06-11 14:55 | MR_ITS ---
FINAL REPORT CLINICAL HISTORY: LOWER BACK PAIN FINDINGS: Multiplanar MR imaging of the lumbar spine was performed without contrast. On the sagittal T2-weighted images, disc degeneration is seen at multiple levels. The vertebral alignment is normal. There is no evidence of fracture. The conus has an unremarkable appearance. L1-2: An annular bulge is present. There are small anterior osteophytes. No significant neural foraminal narrowing is seen. L2-3: Unremarkable. L3-4: Unremarkable. L4-5: A left paracentral and foraminal disc protrusion is seen with left lateral recess stenosis and left L5 nerve root impingement. Mild right and moderate left neural foraminal narrowing is seen. L5-S1: A left paracentral disc protrusion is present with left S1 nerve root impingement. Moderate left neural foraminal narrowing is seen. IMPRESSION: Left paracentral and foraminal L4-5 disc protrusion with left L5 nerve root impingement. Left paracentral L5-S1 disc protrusion with left S1 nerve root impingement. Authenticated and ERN
== END 2024-06-11 23:59 | disposition home or self-care (01) ==
LOC: RAD 13:45
PROVIDERS: PCP Registered Nurse; Visit Provider Nurse Practitioner Family
DX: M54.50 Low back pain, unspecified (principal); M54.9 Dorsalgia, unspecified
CPT/HCPCS: 72148

== ENCOUNTER 2024-06-12 12:48 | Outpatient (POV) | payer MEDICAID, SELFPAY ==
[2024-06-12 13:25] VITALS: BP 153/95; PULSE 103; RESP 16; O2SAT 97; BMI 35.6
--- NOTE | 2024-06-12 14:19 | P.PCN_ITS ---
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 Today he rates his pain a 5 out of 10. He denies any new trauma or injury. He does state that he continues to have pain more prominent in his low back with radiating symptoms down his right leg. Patient did have to reschedule his thoracic MRI and is scheduled to have it done tomorrow. Patient does also already have a follow-up appointment to review over this imaging next week. Patient is currently managed with intrathecal morphine 1 mg/mL with a daily dose of 0.1911 mg/day. He denies any side effects from this medication. He does also have a spinal cord stimulator in place with [employer]. Patient denies needing any adjustment on this stimulation. His Roberto Carlos has been reviewed and is appropriate. Physical Exam: General: Alert and oriented x3, no acute distress, pleasant and cooperative Lungs: Respirations even and unlabored, symmetrical chest expansion Eyes: PERRL Musculoskeletal: Flexion and extension of lumbar [spine] somewhat guarded secondary to pain, [antalgic gait noted] Neurological: Speech clear, no gross sensory deficit Procedure Details:: Informed consent was obtained and the risk and benefits of the procedure were explained to the patient. Patient was taken to the procedure room where noninvasive monitoring was placed including noninvasive blood pressure cuff and pulse oximeter. Patient's pump was interrogated and was reprogrammed to morphine 0.2196 mg/day. The patient tolerated the procedure well with no complications. Plan and Disposition:: Patient tolerated his intrathecal increase with no complications and was discharged neurologically intact. I did review over the patient's lumbar MRI findings and we will review over his thoracic next week. Patient agrees with this plan of care. We will see the patient back in the clinic at the next intrathecal refill. Patient has been instructed to contact the clinic with any concerns before the next appointment. Dr. Calderon has reviewed this note and agrees with this plan of care. This note was dictated using voice recognition software and make contain errors or omissions. -- It Is medically necessary for this patient to continue to have their intrathecal pump refilled at regular intervals. This patient had an intrathecal pain pump implanted after meeting criteria of chronic intractable pain for greater than 3 months and failing conservative treatments. Patient has committed and been compliant to the treatment plan and all planned follow up care. Since implantation of the intrathecal pain pump, the patient has had decreased pain and been more functional. Oral medications have been reduced including intake of oral opioids. Patient continues to do well with intrathecal therapy with decrease in pain symptoms and increase in functional status. Stopping intrathecal medications can lead to life threatening withdrawal, seizures, cardiac arrest, severe pain, and possible . Pumps that are not refilled at regular intervals can be damages and cause and need for replacement. We continually titrate dose and concentration to optimize pain relief and function. We are limited in concentration for certain drugs to safely deliver medications through the pump and stay within the recommendations from the Polyanalgesic Consensus Committee Guidelines. Depending on dose and concentration these pumps may need to be refilled sooner than 3 months as we titrate.
== END 2024-06-12 23:59 | disposition home or self-care (01) ==
PROVIDERS: PCP Registered Nurse; Visit Provider Nurse Practitioner Family
DX: M51.14 Intervertebral disc disorders with radiculopathy, thoracic region (principal); M51.16 Intervertebral disc disorders with radiculopathy, lumbar region
CPT/HCPCS: 62368; 99213; G0463

== ENCOUNTER 2024-06-13 08:05 | Outpatient (CLI) | payer MEDICAID, SELFPAY ==
--- NOTE | 2024-06-13 | MR_ITS ---
FINAL REPORT CLINICAL HISTORY: back pain mid and lower COMPARISON: None FINDINGS: Multiplanar MR imaging of the thoracic spine was performed without contrast. A spinal stimulator is present in the mid to lower thoracic region which obscures some of the detail at this level. On the sagittal T2-weighted images, disc degeneration is seen at several levels. There is no evidence of fracture. The vertebral alignment is normal. The thoracic spinal cord has an unremarkable appearance without evidence of mass, edema or syrinx. On the axial images,disc bulges and small osteophytes are seen at multiple levels. There is a small left paracentral T8-9 disc protrusion. No other disc protrusion identified. There is mild central canal stenosis at T8-9 measuring 9 mm. No paraspinous soft tissue abnormality is identified. IMPRESSION: Multilevel mild degenerative disc disease and spondylosis. T8-9 disc protrusion with mild central canal stenosis. Reviewed, Interpreted and Dictated by Nik Millan III, MD Transcribed by Crystal Hicks Authenticated and [facility]
== END 2024-06-13 23:59 | disposition home or self-care (01) ==
LOC: RAD 08:05
PROVIDERS: PCP Registered Nurse; Visit Provider Nurse Practitioner Family
DX: M51.34 Other intervertebral disc degeneration, thoracic region (principal)
CPT/HCPCS: 72146

== ENCOUNTER 2024-06-19 09:39 | Outpatient (POV) | payer MEDICAID, SELFPAY ==
[2024-06-19 10:13] VITALS: BP 150/102; PULSE 87; RESP 16; O2SAT 100; BMI 35.6
--- NOTE | 2024-06-19 12:17 | EXP.PAIN.PRO ---
Procedure Date: 06/19/24 Time: 10:31 Anesthesiologist:: Becca Isaac APRN Complications:: None Pre-procedure Diagnosis:: Degenerative disc disease of cervical, thoracic and lumbar spine with cervical, thoracic and lumbar radiculopathy symptoms Post-procedure Diagnosis:: Same Indications for Procedure:: Patient is a pleasant 43-year-old male who presents today for intrathecal reprogramming adjustment as well as follow-up of thoracic MRI. Today he rates his pain a 6 out of 10. He denies any new trauma or injury. He does state that overall he still feels like he has gotten significant improvement with the combination of the stimulator and the pump. Patient does state that last week the increase did seem to help some. Patient does however state with any increased activity of his right arm he feels like he has more pain in and around his mid chest. Patient states that the stimulator works well for his overall low back and leg symptoms and does not feel like he needs adjustment on this programming. Patient is currently managed with intrathecal morphine 1 mg/mL with a daily dose of 0.2196 mg/day. He denies any side effects from this medication. His Roberto Carlos has been reviewed and is appropriate. Physical Exam: General: Alert and oriented x3, no acute distress, pleasant and cooperative Lungs: Respirations even and unlabored, symmetrical chest expansion Eyes: PERRL Musculoskeletal: Flexion and extension of lumbar [spine] somewhat guarded secondary to pain, [antalgic gait noted] Neurological: Speech clear, no gross sensory deficit Procedure Details:: Informed consent was obtained and the risk and benefits of the procedure were explained to the patient. Patient was taken to the procedure room where noninvasive monitoring was placed including noninvasive blood pressure cuff and pulse oximeter. Patient's pump was interrogated and was reprogrammed to morphine 0.2746 mg/day. The patient tolerated the procedure well with no complications. Plan and Disposition:: Patient tolerated his intrathecal reprogram and increase with no complications and was discharged neurologically intact. I did discuss with the patient he has thoracic MRI findings and did also discuss possible thoracic epidural in the future. We will see how he does overall with the intrathecal increase. Patient will return to clinic in 2 weeks for reevaluation of symptoms and plan of care. We will see the patient back in the clinic at the next intrathecal refill. Patient has been instructed to contact the clinic with any concerns before the next appointment. Dr. Calderon has reviewed this note and agrees with this plan of care. This note was dictated using voice recognition software and make contain errors or omissions. -- It Is medically necessary for this patient to continue to have their intrathecal pump refilled at regular intervals. This patient had an intrathecal pain pump implanted after meeting criteria of chronic intractable pain for greater than 3 months and failing conservative treatments. Patient has committed and been compliant to the treatment plan and all planned follow up care. Since implantation of the intrathecal pain pump, the patient has had decreased pain and been more functional. Oral medications have been reduced including intake of oral opioids. Patient continues to do well with intrathecal therapy with decrease in pain symptoms and increase in functional status. Stopping intrathecal medications can lead to life threatening withdrawal, seizures, cardiac arrest, severe pain, and possible . Pumps that are not refilled at regular intervals can be damages and cause and need for replacement. We continually titrate dose and concentration to optimize pain relief and function. We are limited in concentration for certain drugs to safely deliver medications through the pump and stay within the recommendations from the Polyanalgesic Consensus Committee Guidelines. Depending on dose and concentration these pumps may need to be refilled sooner than 3 months as we titrate.
== END 2024-06-19 23:59 | disposition home or self-care (01) ==
PROVIDERS: Visit Provider Nurse Practitioner Family
DX: M51.14 Intervertebral disc disorders with radiculopathy, thoracic region (principal); M50.10 Cervical disc disorder with radiculopathy, unspecified cervical region; M51.16 Intervertebral disc disorders with radiculopathy, lumbar region
CPT/HCPCS: 62368; 99213; G0463

== ENCOUNTER 2024-07-03 08:23 | Outpatient (POV) | payer MEDICAID, SELFPAY ==
[2024-07-03 08:43] VITALS: BP 158/107; PULSE 93; RESP 16; O2SAT 97; BMI 36.3
--- NOTE | 2024-07-03 09:02 | EXP.PAIN.SOA ---
[facility] Disclaimer: The information contained in this section may have been updated after the patient was seen, as this information can be updated by other users. Medical History Back pain with history of spinal surgery HTN (hypertension) Seasonal allergies Diabetes Surgical History History of knee surgery History of back surgery Family History Other No significant family history Social History Smoking Status: Never smoker alcohol intake: never substance use type: denies use current occupational status: unemployed Travel in the last 8 weeks: None PM Subjective & Objective Subjective Subjective:: Patient is a pleasant 43-year-old male who presents today for 2-week follow-up. Today he rates his pain a 4 out of 10. He does state that his last intrathecal increase did seem to help some. He does state that he is starting new physical therapy and will be doing this on Mondays and Fridays. Patient did also state that yesterday out of the blue he did have significant increased fatigue. Patient states that there was not anything that really correlated with the changes. He states that today he feels fine. Patient's blood pressure was increased today and he states this because he ran out of blood pressure medications. He is currently managed with morphine 1 mg/mL with a daily dose of 0.2746 mg/day. His Roberto Carlos has been reviewed and is appropriate. Review of Systems: General: No recent weight changes, no fever, no sleep disturbances Respiratory: No cough, no shortness of air, no recurring pulmonary infections Cardiovascular/peripheral vascular: No chest pain, no palpitations, no edema, no shortness of breath Gastrointestinal: No new onset incontinence, normal bowel movements reported Genitourinary: No new onset incontinence Musculoskeletal: Low back pain Psychiatric: [Normal mood/affect] Neurological: [Denies weakness in extremities], [denies balance issues] Pain at rest (0-10 scale): 4 Objective Objective:: Physical Exam: General: Alert and oriented x3, no acute distress, pleasant and cooperative Lungs: Respirations even and unlabored, symmetrical chest expansion Eyes: PERRL Musculoskeletal: Flexion and extension of lumbar [spine] somewhat guarded secondary to pain, [antalgic gait noted] Neurological: Speech clear, no gross sensory deficit Has patient had previous pain injection?: No Conservative treatment options previously tried: Home exercise plan Length of treatment: Longer than 6 weeks Meds Home Medications and Allergies Home Medications ?Medication ?Instructions ?Recorded ?Confirmed ?Type amlodipine 10 mg tablet 10 mg PO DAILY BLOOD PRESSURE 05/03/23 07/03/24 History blood-glucose sensor (FreeStyle 05/03/23 07/03/24 History Lora 3 Sensor device) cetirizine 10 mg tablet 10 mg PO DAILY ALLERGIES 05/03/23 07/03/24 History insulin aspart U-100 100 unit/mL See Rx Instructions .Route 05/03/23 07/03/24 History (3 mL) subcutaneous pen (Novolog .COMPLEX Diabetes FlexPen U-100 Insulin aspart) insulin glargine 100 unit/mL (3 See Rx Instructions .Route 05/03/23 07/03/24 History mL) subcutaneous pen (Lantus .COMPLEX Diabetes Solostar U-100 Insulin) irbesartan 300 mg tablet 300 mg PO DIRECTED BLOOD 05/03/23 07/03/24 History PRESSURE naproxen 500 mg tablet 500 mg PO DIRECTED Pain 05/03/23 07/03/24 History methocarbamol 750 mg tablet 750 mg PO TID . 06/06/23 07/03/24 History morphine (PF) 1 mg/mL injection 1 mg epidural CONT Pain 11/23/23 07/03/24 History solution New Prescriptions to Start Prescriptions: Allergies Allergy/AdvReac Type Severity Reaction Status Date / Time No Known Allergies Allergy Verified 06/04/24 11:30 Assessment and Plan *Assessment and plan (1) Degenerative disc disease, cervical: Status: Acute Category: Medical Code(s): M50.30 - Other cervical disc degeneration, unspecified cervical region (2) Degenerative disc disease, thoracic: Status: Acute Category: Medical Code(s): M51.34 - Other intervertebral disc degeneration, thoracic region (3) Mid back pain: Status: Acute Category: Medical Code(s): M54.9 - Dorsalgia, unspecified (4) Low back pain: Status: Acute Qualifiers: Chronicity: chronic Back pain laterality: bilateral Sciatica presence: without sciatica Qualified Code(s): M54.50 - Low back pain, unspecified; G89.29 - Other chronic pain Category: Medical Code(s): M54.50 - Low back pain, unspecified Plan I did discuss with the patient to continue to keep an eye on the episodes of fatigue and if it is something more frequently that is occurring we will look at ordering additional lab work and other testing to confirm there is nothing else going on. Patient did state that he is only ever had 1 other episode similar to this and it was when he initially got his pump. We will continue to monitor this. Patient is already scheduled for his next intrathecal refill and reprogram in July. Patient was counseled if he needs any appointments in between this visit and is refilled to let our office know. We will see the patient back in the clinic at the next intrathecal refill. Patient has been instructed to contact the clinic with any concerns before the next appointment. Dr. Calderon has reviewed this note and agrees with this plan of care. This note was dictated using voice recognition software and make contain errors or omissions. -- It Is medically necessary for this patient to continue to have their intrathecal pump refilled at regular intervals. This patient had an intrathecal pain pump implanted after meeting criteria of chronic intractable pain for greater than 3 months and failing conservative treatments. Patient has committed and been compliant to the treatment plan and all planned follow up care. Since implantation of the intrathecal pain pump, the patient has had decreased pain and been more functional. Oral medications have been reduced including intake of oral opioids. Patient continues to do well with intrathecal therapy with decrease in pain symptoms and increase in functional status. Stopping intrathecal medications can lead to life threatening withdrawal, seizures, cardiac arrest, severe pain, and possible . Pumps that are not refilled at regular intervals can be damages and cause and need for replacement. We continually titrate dose and concentration to optimize pain relief and function. We are limited in concentration for certain drugs to safely deliver medications through the pump and stay within the recommendations from the Polyanalgesic Consensus Committee Guidelines. Depending on dose and concentration these pumps may need to be refilled sooner than 3 months as we titrate.
== END 2024-07-03 23:59 | disposition home or self-care (01) ==
LOC: SC.PAIN 08:23
PROVIDERS: PCP Registered Nurse; Visit Provider Nurse Practitioner Family
DX: M50.30 Other cervical disc degeneration, unspecified cervical region (principal); M51.34 Other intervertebral disc degeneration, thoracic region; M54.9 Dorsalgia, unspecified; M54.50 Low back pain, unspecified; G89.29 Other chronic pain; Z96.82 Presence of neurostimulator; E11.9 Type 2 diabetes mellitus without complications; Z79.4 Long term (current) use of insulin
CPT/HCPCS: 99212; G0463

== ENCOUNTER 2024-07-30 11:04 | Day surgery (SDC) | payer MEDICAID, SELFPAY ==
[2024-07-30 11:25] VITALS: BP 154/91; PULSE 95; RESP 16; TEMP 36.2; O2SAT 98; BMI 35.6
[2024-07-30 11:47] VITALS: BP 150/90; PULSE 90; RESP 18; O2SAT 97
[2024-07-30 11:52] VITALS: BP 150/90; PULSE 90; RESP 18; O2SAT 97
[2024-07-30 12:06] VITALS: BP 147/89; PULSE 91; RESP 18; O2SAT 97
--- NOTE | 2024-07-30 13:01 | EXP.PAIN.PRO ---
Procedure Date: 07/30/24 Time: 11:30 Anesthesiologist:: Wing Walters CRNA Complications:: None Pre-procedure Diagnosis:: Degenerative disc lumbar spine multilevels. Lumbar radiculopathy. Lumbar postlaminectomy syndrome. Post-procedure Diagnosis:: Same. Indications for Procedure:: Patient is a very pleasant 43-year-old male who comes our clinic today for intrathecal pain pump interrogation and refill. Patient currently being managed with morphine sulfate 1 mg/mL at a rate of 0.2746 mg/day. Patient doing very well with his current settings. He is reporting some increase in low back pain as well as thoracic back pain. He is requesting increase. I think this is reasonable. I will increase his intrathecal pump rate 20% today. His new rate will be 0.3291 mg/day. He is not reporting any complications or side effects. Procedure Details:: Details of the procedure explained to the patient. The patient taken procedure room placed in the sitting position. The area of the pump was cleaned using chlorhexidine as a cleansing solution. The pump was interrogated. The pump was accessed with ease using a 22-gauge inch and a half needle. 5 mL of solution was withdrawn discarded appropriate. The pump was then filled with 20 cc of a solution containing morphine sulfate 1 mg/mL. The rate will be increased 20%. The new rate will be 0.3291 mg/day. Patient tolerated procedure without difficulty. There are no complications. Plan and Disposition:: Patient was discharged without incident.
== END 2024-07-30 12:06 | disposition home or self-care (01) ==
LOC: SC.PAINP 11:05
PROVIDERS: PCP Registered Nurse; Visit Provider Nurse Anesthetist, Certified Registered
DX: M51.16 Intervertebral disc disorders with radiculopathy, lumbar region (principal); M96.1 Postlaminectomy syndrome, not elsewhere classified; Z79.891 Long term (current) use of opiate analgesic
CPT/HCPCS: 95991

== ENCOUNTER 2024-09-10 10:33 | Day surgery (SDC) | payer MEDICAID, SELFPAY ==
[2024-09-10 10:44] VITALS: BP 141/92; PULSE 81; RESP 16; TEMP 36.6; O2SAT 98; BMI 35.6
[2024-09-10 11:08] VITALS: BP 134/97; PULSE 96; RESP 18; O2SAT 97
[2024-09-10 11:09] VITALS: BP 134/97; PULSE 96; RESP 18; O2SAT 97
[2024-09-10 11:21] VITALS: BP 142/99; PULSE 92; RESP 16; O2SAT 97
--- NOTE | 2024-09-10 11:21 | EXP.PAIN.PRO ---
Procedure Date: 09/10/24 Time: 11:20 Anesthesiologist:: Wing Walters CRNA Complications:: None Pre-procedure Diagnosis:: Degenerative disc lumbar spine multilevels. Lumbar radiculopathy. Lumbar postlaminectomy syndrome. Post-procedure Diagnosis:: Same. Indications for Procedure:: Patient is a pleasant 43-year-old male who comes our clinic today for intrathecal pain pump interrogation and refill. Patient currently being managed with morphine sulfate 1 mg/mL at a rate of 0.3291 mg/day. Medication and concentration will be changed to morphine sulfate 2 mg/mL today. He is doing well with his current settings. He is not reporting side effects or complications. He is not requesting changes in the pump rate. Patient is awake alert [place] x 3. No acute distress. Flexion-extension lumbar spine somewhat guarded secondary to pain. Deep tendon reflexes upper lower extremities normal. Motor strength upper and lower extremities normal. There is no gross sensory deficit. Gait is normal. Procedure Details:: Details of the procedure explained to the patient. The patient taken procedure room placed in sitting position. The area of the pump was cleansed using chlorhexidine as a cleansing solution. The pump was interrogated. The pump was accessed with ease using a 22-gauge inch and half needle. 5 mL of solution was withdrawn discarded appropriate. The pump was then filled with 20 cc of solution containing morphine sulfate 2 mg/mL. Pump rate will remain the same at 0.3291 mg/day. Patient tolerated procedure without difficulty. There are no complications. Plan and Disposition:: Patient was discharged without incident.
== END 2024-09-10 11:21 | disposition home or self-care (01) ==
PROVIDERS: PCP Registered Nurse; Visit Provider Nurse Anesthetist, Certified Registered
DX: M51.16 Intervertebral disc disorders with radiculopathy, lumbar region (principal); M96.1 Postlaminectomy syndrome, not elsewhere classified
CPT/HCPCS: 95991

== ENCOUNTER 2024-12-06 08:25 | Day surgery (SDC) | payer MEDICAID, SELFPAY ==
--- NOTE | 2024-12-06 08:36 | P.PCN_ITS ---
Procedure Date: 12/06/24 Time: 09:01 Anesthesiologist:: Becca Isaac APRN Complications:: None Pre-procedure Diagnosis:: Degenerative disc disease of cervical, thoracic spine with radiculopathy symptoms, chronic low back pain Post-procedure Diagnosis:: Same Indications for Procedure:: Patient is a pleasant 44-year-old male who presents today for intrathecal refill and reprogram. Today he rates his pain a 2 out of 10. He states that he has done really well over the last couple of months. He states that October was wonderful and that overall he has been doing good in November up until about Monday. He states all of a sudden he woke up and when he went to go to stand up he had a sharp shooting pain. He states it has eased down dramatically however he still can feel it a little bit with certain positions.Patient is currently managed with intrathecal morphine 2 mg/mL with a daily dose of 0.3291 mg/day. He denies any side effects.His Roberto Carlos has been reviewed and is appropriate. Physical Exam: General: Alert and oriented x3, no acute distress, pleasant and cooperative Lungs: Respirations even and unlabored, symmetrical chest expansion Eyes: PERRL Musculoskeletal: Flexion and extension of lumbar [spine] somewhat guarded secondary to pain, [antalgic gait noted] Neurological: Speech clear, no gross sensory deficit Procedure Details:: Informed consent was obtained and the risk and benefits of the procedure were explained to the patient. The patient had noninvasive monitoring placed including noninvasive blood pressure cuff and pulse oximeter. Patient's pump was interrogated. The area over the pump was cleansed with chlorhexidine as a cleansing solution. In sterile fashion the pump was accessed with a 22-gauge needle. Approximately 5.5 mls of the pump solution was removed and discarded appropriately. The pump was then refilled with 20 mL's of morphine 2 mg. The needle was withdrawn and a bandage was placed over the puncture site. The infusion rate was reprogrammed and morphine 0.3291 mg/day. The patient tolerated well with no complication. Plan and Disposition:: Patient tolerated the procedure well with no complications and was discharged neurologically intact. Patient will return to clinic on or before his next intrathecal refill date. We will see the patient back in the clinic at the next intrathecal refill. Patient has been instructed to contact the clinic with any concerns before the next appointment. Dr. Calderon has reviewed this note and agrees with this plan of care. This note was dictated using voice recognition software and make contain errors or omissions. -- It Is medically necessary for this patient to continue to have their intrathecal pump refilled at regular intervals. This patient had an intrathecal pain pump implanted after meeting criteria of chronic intractable pain for greater than 3 months and failing conservative treatments. Patient has committed and been compliant to the treatment plan and all planned follow up care. Since implantation of the intrathecal pain pump, the patient has had decreased pain and been more functional. Oral medications have been reduced including intake of oral opioids. Patient continues to do well with intrathecal therapy with decrease in pain symptoms and increase in functional status. Stopping intrathecal medications can lead to life threatening withdrawal, seizures, cardi ac arrest, severe pain, and possible . Pumps that are not refilled at regular intervals can be damages and cause and need for replacement. We continually titrate dose and concentration to optimize pain relief and function. We are limited in concentration for certain drugs to safely deliver medications through the pump and stay within the recommendations from the Polyanalgesic Consensus Committee Guidelines. Depending on dose and concentration these pumps may need to be refilled sooner than 3 months as we titrate. A UDS is needed to verify patient's compliance with our office pain contract. This is ordered based off specific treatments related to chronic pain with the potential to abuse certain medications.
[2024-12-06 08:43] VITALS: BP 157/84; PULSE 94; RESP 16; TEMP 36.6; O2SAT 98; BMI 35.6
[2024-12-06 08:47] VITALS: BP 143/97; PULSE 98; RESP 18; O2SAT 98
[2024-12-06 08:52] VITALS: BP 143/97; PULSE 98; RESP 18; O2SAT 98
[2024-12-06 09:05] VITALS: BP 137/98; PULSE 92; RESP 16; O2SAT 98
== END 2024-12-06 09:05 | disposition home or self-care (01) ==
PROVIDERS: PCP Registered Nurse; Visit Provider Nurse Practitioner Family
DX: M50.10 Cervical disc disorder with radiculopathy, unspecified cervical region (principal); M51.14 Intervertebral disc disorders with radiculopathy, thoracic region; M54.50 Low back pain, unspecified; G89.29 Other chronic pain
CPT/HCPCS: 62370

== ENCOUNTER 2024-12-11 12:34 | Outpatient (POV) | payer MEDICAID, SELFPAY ==
--- NOTE | 2024-12-11 13:12 | P.PCN_ITS ---
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 Today he rates his pain a 1 out of 10 currently however does state that he has been experiencing worsening low back pain. He states that the other day he was trying to get out at [place] at the [employer] and was having severe pain that he would ride at least a 6 or 7 out of 10. He states that he has had pain like this in the past and typically that the stimulator physician representative has adjusted programming to give coverage in this area. He states that he does need to charge the device and try this however he did want to make sure that there was nothing concerning going on with his pump. Patient does state the pain is only on the right side below his pump area and does go into his hip area. He states any type of increased activity seems to really aggravate it and he does feel a pulling, stinging sensation and even feels almost like a bruise is below the pump when he presses. He states that his did look at it and did not see anything concerning. Patient is currently managed with intrathecal morphine 2 mg/mL with a daily dose of 0.3291 mg/day. He denies any side effects.His Roberto Carlos has been reviewed and is appropriate. Physical Exam: General: Alert and oriented x3, no acute distress, pleasant and cooperative Lungs: Respirations even and unlabored, symmetrical chest expansion Eyes: PERRL Musculoskeletal: Flexion and extension of lumbar [spine] somewhat guarded secondary to pain, [antalgic gait noted] Neurological: Speech clear, no gross sensory deficit Plan and Disposition:: -- It Is medically necessary for this patient to continue to have their intrathecal pump refilled at regular intervals. This patient had an intrathecal pain pump implanted after meeting criteria of chronic intractable pain for greater than 3 months and failing conservative treatments. Patient has committed and been compliant to the treatment plan and all planned follow up care. Since implantation of the intrathecal pain pump, the patient has had decreased pain and been more functional. Oral medications have been reduced including intake of oral opioids. Patient continues to do well with intrathecal therapy with decrease in pain symptoms and increase in functional status. Stopping intrathecal medications can lead to life threatening withdrawal, seizures, cardiac arrest, severe pain, and possible . Pumps that are not refilled at regular intervals can be damages and cause and need for replacement. We continually titrate dose and concentration to optimize pain relief and function. We are limited in concentration for certain drugs to safely deliver medications through the pump and stay within the recommendations from the Polyanalgesic Consensus Committee Guidelines. Depending on dose and concentration these pumps may need to be refilled sooner than 3 months as we titrate. A UDS is needed to verify patient's compliance with our office pain contract. This is ordered based off specific treatments related to chronic pain with the potential to abuse certain medications.
--- NOTE | 2024-12-11 13:38 | A.OFFVIS_ITS ---
[facility] Disclaimer: The information contained in this section may have been updated after the patient was seen, as this information can be updated by other users. Medical History (Updated 12/11/24 @ 13:40 by Becca Isaac APRN) Back pain with history of spinal surgery HTN (hypertension) Seasonal allergies Diabetes Surgical History History of knee surgery History of back surgery Family History Other No significant family history Social History Smoking Status: Never smoker alcohol intake: never substance use type: denies use current occupational status: unemployed Travel in the last 8 weeks: None Have you lived/traveled outside [place] in past 30 days?: No Contact w/someone who lives/traveled outside US past 30 days?: No Exposure to someone with infectious disease in past 14 days?: No Do you have a fever (greater than 100.4 F or 38 C)?: No Have you tested positive for COVID-19: No Exposed to someone with COVID-19 in past 14 days?: No Do you have a sore throat?: No Do you have a cough?: No Do you have any weakness?: No Do you have any diarrhea?: No Are you experiencing any unusual bleeding?: No Do you have any muscle aches/pain?: No Do you have any abdominal pain?: No Are you experiencing loss of taste or smell?: No PM Subjective & Objective Subjective Subjective:: Patient is a pleasant 44-year-old male who presents today for worsening pain. Today he rates it a 1 out of 10 however states that it will get much worse. He states earlier this week [place] and was having severe pain that he would ride at least a 6 or 7 out of 10. He states that he has had pain like this in the past and typically that the stimulator authorization representative has adjusted programming to give coverage in this area. He states that he does need to charge the device and try this however he did want to make sure that there was nothing concerning going on with his pump. Patient does state the pain is only on the right side below his pump area and does go into his hip area. He states any type of increased activity seems to really aggravate it and he does feel a pulling, stinging sensation and even feels almost like a bruise is below the pump when he presses. He states that his did look at it and did not see anything concerning. Patient is currently managed with intrathecal morphine 2 mg/mL with a daily dose of 0.3291 mg/day. He denies any side effects.His Roberto Carlos has been reviewed and is appropriate. Review of Systems: General: No recent weight changes, no fever, no sleep disturbances Respiratory: No cough, no shortness of air, no recurring pulmonary infections Cardiovascular/peripheral vascular: No chest pain, no palpitations, no edema, no shortness of breath Gastrointestinal: No new onset incontinence, normal bowel movements reported Genitourinary: No new onset incontinence Musculoskeletal: Low back pain, right hip pain Psychiatric: [Normal mood/affect] Neurological: [Denies weakness in extremities], [denies balance issues] Pain at rest (0-10 scale): 1 Objective Objective:: Physical Exam: General: Alert and oriented x3, no acute distress, pleasant and cooperative Lungs: Respirations even and unlabored, symmetrical chest expansion Eyes: PERRL Musculoskeletal: Flexion and extension of lumbar [spine] somewhat guarded s econdary to pain, [antalgic gait noted] point tenderness along right SI with positive right Lesley's, Mckenzie's, Gaenslen's, compression and distraction exam Neurological: Speech clear, no gross sensory deficit Has patient had previous pain injection?: No Conservative treatment options previously tried: Home exercise plan Length of treatment: Longer than 12 weeks Meds Home Medications and Allergies Home Medications ?Medication ?Instructions ?Recorded ?Confirmed ?Type amlodipine 10 mg tablet 10 mg PO DAILY BLOOD PRESSURE 05/03/23 12/06/24 History blood-glucose sensor (FreeStyle 05/03/23 12/06/24 History Lora 3 Sensor device) cetirizine 10 mg tablet 10 mg PO DAILY ALLERGIES 05/03/23 12/06/24 History insulin aspart U-100 100 unit/mL See Rx Instructions .Route 05/03/23 12/06/24 History (3 mL) subcutaneous pen (Novolog .COMPLEX Diabetes FlexPen U-100 Insulin aspart) insulin glargine 100 unit/mL (3 See Rx Instructions .Route 05/03/23 12/06/24 History mL) subcutaneous pen (Lantus .COMPLEX Diabetes Solostar U-100 Insulin) irbesartan 300 mg tablet 300 mg PO DIRECTED BLOOD 05/03/23 12/06/24 History PRESSURE naproxen 500 mg tablet 500 mg PO DIRECTED Pain 05/03/23 12/06/24 History methocarbamol 750 mg tablet 750 mg PO TID . 06/06/23 12/06/24 History morphine (PF) 1 mg/mL injection 1 mg epidural CONT Pain 11/23/23 12/06/24 History solution New Prescriptions to Start Prescriptions: Allergies Allergy/AdvReac Type Severity Reaction Status Date / Time No Known Allergies Allergy Verified 07/30/24 11:26 Assessment and Plan *Assessment and plan (1) Sacroiliitis: Status: Acute Category: Medical Code(s): M46.1 - Sacroiliitis, not elsewhere classified Plan Patient does have longstanding chronic low back and hip pain. Today he did have point tenderness along his right SI and a positive right Lesley's, Mckenzie's, Gaenslen's, compression and distraction exam. I did discuss with him to definitely try and use his compounded cream and his stimulator programming and see if this does ease the pain down. Patient's pump is working fine and I have no concerns regarding this. I did discuss with him that if it does not ease down or continues to get worse that I would recommend injection on that right side. Risk and benefits were discussed with the patient and he acknowledges understanding. Patient was counseled to call our office if it does worsen between now and his next pump refill and we can see about proceeding forward with the injection. Patient agrees with this plan of care. We will see the patient back in the clinic at the next intrathecal refill. Patient has been instructed to contact the clinic with any concerns before the next appointment. Dr. Calderon has reviewed this note and agrees with this plan of care. This note was dictated using voice recognition software and make contain errors or omissions. -- It Is medically necessary for this patient to continue to have their intrathecal pump refilled at regular intervals. This patient had an intrathecal pain pump implanted after meeting criteria of chronic intractable pain for greater than 3 months and failing conservative treatments. Patient has committed and been compliant to the treatment plan and all planned follow up care. Since implantation of the intrathecal pain pump, the patient has had decreased pain and been more functional. Oral medications have been reduced including intake of oral opioids. Patient continues to do well with intrathecal therapy with decrease in pain symptoms and increase in functional status. Stopping intrathecal medications can lead to life threatening withdrawal, seizures, cardiac arrest, severe pain, and possible . Pumps that are not refilled at regular intervals can be damages and cause and need for replacement. We continually titrate dose and concentration to optimize pain relief and function. We are limited in concentration for certain drugs to safely deliver medications through the pump and stay within the recommendations from the Polyanalgesic Consensus Committee Guidelines. Depending on dose and concentration these pumps may need to be refilled sooner than 3 months as we titrate. A UDS is needed to verify patient's compliance with our office pain contract. This is ordered based off specific treatments related to chronic pain with the potential to abuse certain medications.
[2024-12-11 14:36] VITALS: BP 135/90; PULSE 79; RESP 14; O2SAT 98; BMI 35.6
== END 2024-12-11 23:59 | disposition home or self-care (01) ==
PROVIDERS: PCP Registered Nurse; Visit Provider Nurse Practitioner Family
DX: M46.1 Sacroiliitis, not elsewhere classified (principal)
CPT/HCPCS: 99212; G0463

== ENCOUNTER 2025-01-08 13:21 | Outpatient (POV) | payer MEDICAID, SELFPAY ==
[2025-01-08 13:57] VITALS: BP 139/94; BP 140/98; PULSE 97; RESP 14; O2SAT 99; BMI 35.6
--- NOTE | 2025-01-08 14:02 | A.OFFVIS_ITS ---
[facility] Disclaimer: The information contained in this section may have been updated after the patient was seen, as this information can be updated by other users. Medical History (Updated 01/08/25 @ 14:02 by Becca Isaac APRN) Back pain with history of spinal surgery HTN (hypertension) Seasonal allergies Diabetes Surgical History History of knee surgery History of back surgery Family History Other No significant family history Social History Smoking Status: Never smoker alcohol intake: never substance use type: denies use current occupational status: other Travel in the last 8 weeks: None PM Subjective & Objective Subjective Subjective:: Patient is a pleasant 44-year-old male who presents today for worsening neck pain. Patient does rated currently a 5 out of 10 however states the other day he was putting at the shower curtain and did have more intense pain that radiated down into his bilateral shoulders. He also states that he even had trouble looking up without having more severe pain. He states that he just feels a lot of pressure and almost tired sensations into his neck. Patient has had imaging in the past of his neck that did show more degenerative changes however at that time he states he really did not have any pain. He does state the pain is now interfering with his ability perform activities of daily living. He denies any new falls or injuries. He does also make mention that he is still having the same pain that we saw him for at our last visit into his low back and right hip. He states that that pain is more bothersome currently than the neck symptoms. He would like to proceed forward with the injection that we did discuss at our last visit. Patient has continued conservative treatment including oral medication, heat and ice, topicals, at home stretching exercise for longer than 12 weeks. Patient does have a intrathecal pump of morphine 2 mg/mL with a daily dose of 0.3291 mg/day. He also has a [employer] spinal cord stimulator in place that does treat his low back and leg symptoms. Patient denies any problems with this programming. His Roberto Carlos has been reviewed and is appropriate. Review of Systems: General: No recent weight changes, no fever, no sleep disturbances Respiratory: No cough, no shortness of air, no recurring pulmonary infections Cardiovascular/peripheral vascular: No chest pain, no palpitations, no edema, no shortness of breath Gastrointestinal: No new onset incontinence, normal bowel movements reported Genitourinary: No new onset incontinence Musculoskeletal: Neck pain, low back pain, right hip pain Psychiatric: [Normal mood/affect] Neurological: [Denies weakness in extremities], [denies balance issues] Pain at rest (0-10 scale): 5 Objective Objective:: Physical Exam: General: Alert and oriented x3, no acute distress, pleasant and cooperative Lungs: Respirations even and unlabored, symmetrical chest expansion Eyes: PERRL Musculoskeletal: Flexion and extension of lumbar [spine] somewhat guarded secondary to pain, [antalgic gait noted] point tenderness along right SI with positive right Lesley's, Mckenzie's, Gaenslen's, compression and distraction exam Neurological: Speech clear, no gross sensory deficit Has patient had previous pain injection?: No Conservative treatment options previously tried: Home exercise plan Length of treatment: Longer than 12 weeks Meds Home Medications and Allergies Home Medications ?Medication ?Instructions ?Recorded ?Confirmed ?Type amlodipine 10 mg tablet 10 mg PO DAILY BLOOD PRESSURE 05/03/23 12/11/24 History blood-glucose sensor (FreeStyle 05/03/23 12/11/24 History Lora 3 Sensor device) cetirizine 10 mg tablet 10 mg PO DAILY ALLERGIES 05/03/23 12/11/24 History insulin aspart U-100 100 unit/mL See Rx Instructions .Route 05/03/23 12/11/24 History (3 mL) subcutaneous pen (Novolog .COMPLEX Diabetes FlexPen U-100 Insulin aspart) insulin glargine 100 unit/mL (3 See Rx Instructions .Route 05/03/23 12/11/24 History mL) subcutaneous pen (Lantus .COMPLEX Diabetes Solostar U-100 Insulin) irbesartan 300 mg tablet 300 mg PO DIRECTED BLOOD 05/03/23 12/11/24 History PRESSURE naproxen 500 mg tablet 500 mg PO DIRECTED Pain 05/03/23 12/11/24 History methocarbamol 750 mg tablet 750 mg PO TID . 06/06/23 12/11/24 History morphine (PF) 1 mg/mL injection 1 mg epidural CONT Pain 11/23/23 12/11/24 History solution New Prescriptions to Start Prescriptions: Allergies Allergy/AdvReac Type Severity Reaction Status Date / Time No Known Allergies Allergy Verified 07/30/24 11:26 Assessment and Plan *Assessment and plan (1) Sacroiliitis: Status: Acute Category: Medical Code(s): M46.1 - Sacroiliitis, not elsewhere classified Plan Patient is experiencing worsening pain along the low back and right hip. They did have limited range of motion of the lumbar spine along with point tenderness along right SI joints and a positive right Lesley's, Mckenzie's, Gaenslen's, compression and distraction exam. I did discuss with the patient that I do believe they would benefit from right SI injections. Risk and benefits were discussed with the patient and they would like to proceed forward with this opti on. Patient has tried and failed conservative therapy including continued at home stretching exercise for longer than 12 weeks. I did also discuss with patient that I will order x-ray imaging of his cervical spine with the plan to progress forward with advanced imaging. Patient agrees with this plan of care. I did also discuss with the patient in future if he continues to have the chronic neck symptoms we could look at doing flex dosing in his intrathecal pump and see if this provides additional improvement. We will follow-up with this at future visits. Patient will be scheduled for right SI injections under fluoroscopy. Patient has been instructed to contact the clinic with any concerns before the next appointment. Dr. Calderon has reviewed this note and agrees with this plan of care. This note was dictated using voice recognition software and make contain errors or omissions. All injections are used with Lidocaine or Bupivacaine and Depo Medrol.
--- NOTE | 2025-01-08 14:06 | XR_ITS ---
FINAL REPORT CLINICAL HISTORY: neck pain COMPARISON: 10/26/2023 FINDINGS: CERVICAL SPINE Three views were obtained. There is no acute fracture. There is mild diffuse degenerative disc disease, most pronounced at C5-6. There is no malalignment. IMPRESSION: Degenerative disc disease as above. Reviewed, Interpreted and Dictated by Renee Nolasco MD Transcribed by Asya Chavez Authenticated and [facility]
== END 2025-01-08 23:59 | disposition home or self-care (01) ==
PROVIDERS: Visit Provider Nurse Practitioner Family
DX: M50.10 Cervical disc disorder with radiculopathy, unspecified cervical region (principal); M46.1 Sacroiliitis, not elsewhere classified; Z73.89 Other problems related to life management difficulty
CPT/HCPCS: 72040; 99212; G0463

== ENCOUNTER 2025-02-18 11:38 | Day surgery (SDC) | payer MEDICAID, SELFPAY ==
[2025-02-18 11:56] VITALS: BP 129/92; PULSE 72; RESP 16; TEMP 36.8; O2SAT 98; BMI 35.6
--- NOTE | 2025-02-18 12:02 | EXP.PAIN.PRO ---
Procedure Date: 02/18/25 Time: 11:55 Anesthesiologist:: Wing Walters CRNA Complications:: None Pre-procedure Diagnosis:: Right sacroiliitis. Degenerative disc lumbar spine multilevels. Lumbar radiculopathy. Post-procedure Diagnosis:: Same. Indications for Procedure:: Patient is a very pleasant 44-year-old male who comes our clinic today for a left sacroiliac joint injection of cortisone and local anesthetic. Patient describes low lumbar back pain off the midline to the left. Left posterior hip pain. Left buttock pain. Patient is also managed with intrathecal pain pump. He rates his pain 7/10. Procedure Details:: Procedure: Left sacroiliac injection under fluoroscopy Informed consent was obtained and the risk and benefits of the procedure were explained to the patient.~ The patient was taken to the procedure room and noninvasive monitors were placed including noninvasive blood pressure cuff and pulse oximeter.~ The patient was placed prone on the procedure table.~ The~ left hip was cleansed using Betadine as a cleansing solution.~ C-arm fluorosocpy was used to view the left SI joint.~ The skin and subcutaneous tissues were anesthetized using Lidocaine 1.5% and a 25-gauge needle.~ After this, a 22-gauge spinal needle was inserted under fluoroscopic guidance into the inferior aspect of the left SI joint.~ Omnipaque dye was injected and a good spread was seen throughout the joint.~ After this, approximately 5 mL of bupivacaine 0.25% and Depo-Medrol 40 mg was incrementally injected into the sacroiliac joint.~ The patient tolerated the procedure well with no complications.~ The patient was observed in the Pain Clinic for a period of 30-45 minutes, then discharged home neurologically intact.~ Plan and Disposition:: Patient was discharged without incident.
[2025-02-18 12:03] VITALS: BP 135/87; PULSE 85; RESP 16; O2SAT 99
[2025-02-18] MEDS: LIDOCAINE 1% 5ML PF VIAL 5 ML (12:38)
[2025-02-18] MEDS: BUPIVACAINE 0.25% 10ML INJ 25 MG IJ (12:38)
[2025-02-18 12:39] VITALS: BP 129/92; PULSE 72; RESP 18; O2SAT 98
[2025-02-18 12:42] VITALS: BP 129/92; PULSE 72; RESP 18; O2SAT 98
== END 2025-02-18 12:03 | disposition home or self-care (01) ==
PROVIDERS: Visit Provider Nurse Anesthetist, Certified Registered
DX: M46.1 Sacroiliitis, not elsewhere classified (principal); M51.16 Intervertebral disc disorders with radiculopathy, lumbar region
CPT/HCPCS: 27096; G0260; J1010

== ENCOUNTER 2025-02-28 09:03 | Day surgery (SDC) | payer MEDICAID, SELFPAY ==
[2025-02-28 09:09] VITALS: BP 138/99; PULSE 102; RESP 18; O2SAT 98
[2025-02-28 09:10] VITALS: BP 150/90; PULSE 109; RESP 16; TEMP 36.8; O2SAT 98; BMI 34.5
--- NOTE | 2025-02-28 09:13 | EXP.HP ---
History of Present Illness *Admission Date: 02/28/25 *Reason for visit:: Intrathecal refill; DDD *History of present illness: Degenerative disc disease [facility] Disclaimer: The information contained in this section may have been updated after the patient was seen, as this information can be updated by other users. Medical History Back pain with history of spinal surgery HTN (hypertension) Seasonal allergies Diabetes Surgical History History of knee surgery History of back surgery Family History Other No significant family history Social History Smoking Status: Never smoker alcohol intake: never substance use type: denies use current occupational status: other Travel in the last 8 weeks: None Have you lived/traveled outside [place] in past 30 days?: No Contact w/someone who lives/traveled outside US past 30 days?: No Exposure to someone with infectious disease in past 14 days?: No Do you have a fever (greater than 100.4 F or 38 C)?: No Have you tested positive for COVID-19: No Exposed to someone with COVID-19 in past 14 days?: No Do you have a sore throat?: No Do you have a cough?: No Do you have any weakness?: No Do you have any diarrhea?: No Are you experiencing any unusual bleeding?: No Do you have any muscle aches/pain?: No Do you have any abdominal pain?: No Are you experiencing loss of taste or smell?: No Other Medical History Have you received the Flu Vaccine for this season: No Have you received the Pneumonia Vaccine: No Review of Systems Review of Systems Review of systems:: pertinent systems reviewed and negative unless documented below Review of systems (narrative): Review of Systems: General: No recent weight changes, no fever, no sleep disturbances Respiratory: No cough, no shortness of air, no recurring pulmonary infections Cardiovascular/peripheral vascular: No chest pain, no palpitations, no edema, no shortness of breath Gastrointestinal: No new onset incontinence, normal bowel movements reported Genitourinary: No new onset incontinence Musculoskeletal: Chronic back pain Psychiatric: [Normal mood/affect] Neurological: [Denies weakness in extremities], [denies balance issues] Constitutional Constitutional: Reports system reviewed and no additional complaints, except as documented Meds Home Medications and Allergies Home Medications ?Medication ?Instructions ?Recorded ?Confirmed ?Type amlodipine 10 mg tablet 10 mg PO DAILY BLOOD PRESSURE 05/03/23 02/18/25 History blood-glucose sensor (FreeStyle 05/03/23 02/18/25 History Lora 3 Sensor device) cetirizine 10 mg tablet 10 mg PO DAILY ALLERGIES 05/03/23 02/18/25 History insulin aspart U-100 100 unit/mL See Rx Instructions .Route 05/03/23 02/18/25 History (3 mL) subcutaneous pen (Novolog .COMPLEX Diabetes FlexPen U-100 Insulin aspart) insulin glargine 100 unit/mL (3 See Rx Instructions .Route 05/03/23 02/18/25 History mL) subcutaneous pen (Lantus .COMPLEX Diabetes Solostar U-100 Insulin) irbesartan 300 mg tablet 300 mg PO DIRECTED BLOOD 05/03/23 02/18/25 History PRESSURE naproxen 500 mg tablet 500 mg PO DIRECTED Pain 05/03/23 02/18/25 History methocarbamol 750 mg tablet 750 mg PO TID . 06/06/23 02/18/25 History morphine (PF) 1 mg/mL injection 1 mg epidural CONT Pain 11/23/23 02/18/25 History solution New Prescriptions to Start Prescriptions: Allergies Allergy/AdvReac Type Severity Reaction Status Date / Time No Known Allergies Allergy Verified 07/30/24 11:26 Exam Constitutional Constitutional: no acute distress *Routine HEENT Exam Head: Present normocephalic and atraumatic Eye: Present PERRL ENT: Present mucous membranes moist *Routine Neck Exam Neck: Present supple *Routine Respiratory Exam Respiratory: Present CTA bilaterally *Routine Cardiovascular Exam Cardiovascular: Present RRR *Routine Abdominal Exam Abdominal: Present soft *Routine Rectal Exam Rectal:: deferred *Routine Genitalia Exam Genitalia:: normal male Detailed Upper Extremity Exam Shoulder/Upper Arm: bilateral: normal inspection Detailed Lower Extremity Exam Hip: bilateral: normal inspection Detailed Neurological Exam Brainstem reflexes: present: corneal reflex, present: gag reflex and present: oculocephalic reflex Detailed Neurological Exam: Coma Scale Coma scale eye opening: Spontaneous Coma scale motor response: Obeys commands Coma scale verbal response: Oriented Coma scale total: 15 Assessment and Plan *Assessment and plan (1) Degenerative disc disease, cervical: Status: Acute Category: Medical Code(s): M50.30 - Other cervical disc degeneration, unspecified cervical region (2) Degenerative disc disease, thoracic: Status: Acute Category: Medical Code(s): M51.34 - Other intervertebral disc degeneration, thoracic region (3) Mid back pain: Status: Acute Category: Medical Code(s): M54.9 - Dorsalgia, unspecified (4) Low back pain: Status: Acute Qualifiers: Chronicity: chronic Back pain laterality: bilateral Sciatica presence: without sciatica Qualified Code(s): M54.50 - Low back pain, unspecified; G89.29 - Other chronic pain Category: Medical Code(s): M54.50 - Low back pain, unspecified Plan Patient has been instructed to contact the clinic with any concerns before the next appointment. Dr. Calderon has reviewed this note and agrees with this plan of care. This note was dictated using voice recognition software and make contain errors or omissions. All injections are used with Lidocaine, Bupivacaine and dexamethasone. Occasionally urine drug screen is needed to verify patient's compliance with our office pain contract. This is ordered based off specific treatments related to chronic pain with the potential to abuse certain medications.
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
[2025-02-28 09:23] VITALS: BP 138/91; PULSE 95; RESP 18; O2SAT 98
[2025-02-28 09:36] VITALS: BP 139/97; PULSE 92; RESP 16; O2SAT 100
== END 2025-02-28 09:36 | disposition home or self-care (01) ==
PROVIDERS: Visit Provider Nurse Practitioner Family
DX: G89.4 Chronic pain syndrome (principal); M50.10 Cervical disc disorder with radiculopathy, unspecified cervical region; M51.14 Intervertebral disc disorders with radiculopathy, thoracic region; M51.16 Intervertebral disc disorders with radiculopathy, lumbar region
CPT/HCPCS: 62370; 99221

== ENCOUNTER 2025-05-16 11:14 | Day surgery (SDC) | payer MEDICAID, SELFPAY ==
--- OUTSIDE RECORDS SUMMARY | 2025-05-16 11:17 | XMS_ITS | Encounter Summary ---
Author Organization [employer] ([place], [place], [place], [place]) Address [address] [place] [address] Care Team Providers Care Mixed Livestock [employer] Worker Name Role Phone Reva Garcia MD Primary Care Provider [phone] Encounter Details Date Type Department Care Team (Late st Contact Info) Description 02/26/2025 Outside Orders [facility] Central Scheduling [address] [place] [address] Amanda Don, SAGAR Social History Tobacco Use Types Packs/Day Years Used Date Smoking Tobacco: Never Smokeless Tobacco: Never Alcohol Use Standard Drinks/Week Comments Never 0 (1 standard drink = 0.6 oz pur e alcohol) Family and Community Support Answer Brian e Recorded Help with Day to Day Activities Not on file 11/23/2023 Feeling Lonely or Isolated Not on file 11/23 Educational Attainment Answer Date Phi rded Speak language other than Finnish at home Not on file 11/23/2023 Want help with school or training Not on file 11/23/2023 Substance Use Answer Date Recorded Used prescription meds for non-medical reasons N ot on file 11/23/2023 Used illegal drugs past 12 months Not on file 11/23/2023 Sex and Gender Information Value Date Recorded Sex Assigned at Not on file Legal Sex Male 5:37 PM CDT Gender Identity Not on file Sexual Orientation Not on file documented as of this encounter Last Filed Vital Signs Vital Sign Reading Time Taken Comments Blood Pressure - - Pulse - - Temperature - - Respiratory Rate - - Oxygen Saturation - - Inhaled Oxygen Concentration - - Weight 117.9 kg (260 lb) 02/26/2025 2:00 PM EDT Height - - Body Mass Index 34.3 02/24/2025 8:59 AM EDT documented in this encounter Plan of Treatment Not on file documented as of this encounter Visit Diagnoses Not on filedocumented in this encounter Care Teams [employer] Worker Relationship Specialty Start Date End Date Reva Garcia MD [address] [facility] [address] [place] [address] PCP - General Family Medicine 02/24/25 documented as of this encounter
--- OUTSIDE RECORDS SUMMARY | 2025-05-16 11:18 | XMS_ITS | Encounter Summary ---
Author Organization [employer] ([place], [place], [place], [place]) Address [address] [place] [address] Care Team Providers Care Sawmill Supervisor Name Role Phone Reva Garcia MD Primary Care Provider Encounter Details Date Type Department Care Team (Late st Contact Info) Description 07/27/2022 Transcribed Document [facility] Family Medicine [address] [place] [address] ProviderEric MD [address] [place] [address] Social History Tobacco Use Types Packs/Day Years Used Date Smoking Tobacco: Never Assessed Family and Community Support Answer Brian e Recorded Help with Day to Day Activities Not on file 11/23/2023 Feeling Lonely or Isolated Not on file 11/23 Educational Attainment Answer Date Phi rded Speak language other than Maldivian at home Not on file 11/23/2023 Want [...] on file documented as of this encounter Miscellaneous Notes * Cerner Conversion Note - Eric ProviderMD - 07/27/2022 9:31 AM CDT [address] [address] SAHIL PIERSON :1980 Visit Time:07/27/2022 Your Visit Summary Your Care Team Admitting Physician - KEREN SHELTON MD-ANS Attending Physician - KEREN SHELTON MD-ANS Primary Care Physician - SARAHI FAMILY (REF), Referring Physician - ANGELA FRIAS ARN-FAM These Are Your Goals to be pain free or less pain leading to normal life No qualifying data available. Discharge Vitals Temperature 36.8 ??C Respiratory Rate 18 Blood Pressure 175/118 What to do next Follow-Up Appointments Follow Up with KEREN SHELTON MD-ANS When Within 2 months Where: [address] [facility] [address] [place] [address]- Medications What How Much When Instructions Next Dose amLODIPine (amLODIPine 10 mg oral tablet) 1 Tablet(s) Oral Every Day insulin aspart (NovoLOG FlexPen 100 units/ mL injectable solution) See instructions sliding scale tid insulin glargine (Lantus Solostar Pen 100 units/ mL subcutaneous solution) 10 Unit(s) SubCutaneous Once a day (at bedtime) irbesartan (irbesartan 300 mg oral tablet) 1 Tablet(s) Oral Every Day Take your medications faithfully. Do NOT skip medication. Do NOT stop taking medications without the direction of a physician. Carry a list of your medications with you at all times, and take this medication list with you to your first follow up visit. Report any side effects. Avoid herbal remedies unless discussed with your physician. As part of your treatment plan, your physician may have prescribed a limited course of a controlled substance. This medication may be given to help people with moderate or severe pain or for other medical conditions, but there are risks involved with treatment. Common side effects may include nausea, constipation, drowsiness, sweating, itching, dry mouth, and rash. More serious side effects may include cognitive and motor impairment, like problems with thinking, concentrating, alertness, and movement (e.g. slowed reflexes), and driving and operating heavy machinery can be dangerous. It is important for you to talk to your physician if you have these side effects or questions. These controlled substances can produce physical dependence and be habit-forming if taken for an extended period of time, which means that the body has gotten used to them and may experience withdrawal symptoms if they are abruptly stopped. Withdrawal symptoms can include runny nose, sweating, goose bumps, diarrhea, abdominal cramping, rapid heartbeat, difficulty sleeping, and nervousness. Please dispose of unused and medications per your retail pharmacy guidance. Allergies No Known Allergies Immunizations This Visit No Immunizations Found Education Materials Fall Prevention in the Home, Adult Falls can cause injuries and can happen to people of all ages. There are many things you can do to make your home safe and to help prevent falls. Ask for help when making these changes. What actions can I take to prevent falls? General Instructions ??? Use good lighting in all rooms. Replace any light bulbs that burn out. ??? Turn on the lights in dark areas. Use night-lights. ??? Keep items that you use often in hhlr-la-bgred places. Lower the shelves around your home if needed. ??? Set up your furniture so you have a clear path. Avoid moving your furniture around. ??? Do not have throw rugs or other things on the floor that can make you trip. ??? Avoid walking on wet floors. ??? If any of your floors are uneven, fix them. ??? Add color or contrast paint or tape to clearly melanie and help you see: ? Grab bars or handrails. ? First and last steps of staircases. ? Where the edge of each step is. ??? If you use a stepladder: ? Make sure that it is fully opened. Do not climb a closed stepladder. ? Make sure the sides of the stepladder are locked in place. ? Ask someone to hold the stepladder while you use it. ??? Know where your pets are when moving through your home. What can I do in the bathroom? Keep the floor dry. Clean up any water on the floor right away. ??? Remove soap buildup in the tub or shower. ??? Use nonskid mats or decals on the floor of the tub or shower. ??? Attach bath mats securely with double-sided, nonslip rug tape. ??? If you need to sit down in the shower, use a plastic, nonslip stool. ??? Install grab bars by the toilet and in the tub and shower. Do not use towel bars as grab bars. What can I do in the bedroom? Make sure that you have a light by your bed that is easy to reach. ??? Do not use any sheets or blankets for your bed that hang to the floor. ??? Have a firm chair with side arms that you can use for support when you get dressed. What can I do in the kitchen? Clean up any spills right away. ??? If you need to reach something above you, use a step stool with a grab bar. ??? Keep electrical cords out of the way. ??? Do not use floor bengali or wax that makes floors slippery. What can I do with my stairs? Do not leave any items on the stairs. ??? Make sure that you have a light switch at the top and the bottom of the stairs. ??? Make sure that there are handrails on both sides of the stairs. Fix handrails that are broken or loose. ??? Install nonslip stair treads on all your stairs. ??? Avoid having throw rugs at the top or bottom of the stairs. ??? Choose a carpet that does not hide the edge of the steps on the stairs. ??? Check carpeting to make sure that it is firmly attached to the stairs. Fix carpet that is loose or worn. What can I do on the outside of my home? Use bright outdoor lighting. ??? Fix the edges of walkways and driveways and fix any cracks. ??? Remove anything that might make you trip as you walk through a door, such as a raised step or threshold. ??? Trim any bushes or trees on paths to your home. ??? Check to see if handrails are loose or broken and that both sides of all steps have handrails. ??? Install guardrails along the edges of any raised decks and porches. ??? Clear paths of anything that can make you trip, such as tools or rocks. ??? Have leaves, snow, or ice cleared regularly. ??? Use sand or salt on paths during winter. ??? Clean up any spills in your garage right away. This includes grease or oil spills. What other actions can I take? Wear shoes that: ? Have a low heel. Do not wear high heels. ? Have rubber bottoms. ? Feel good on your feet and fit well. ? Are closed at the toe. Do not wear open-toe sandals. ??? Use tools that help you move around if needed. These include: ? Canes. ? Walkers. ? Scooters. ? Crutches. ??? Review your medicines with your doctor. Some medicines can make you feel dizzy. This can increase your chance of falling. Ask your doctor what else you can do to help prevent falls. Where to find more information ??? Centers for Disease Control and Prevention, [place]: www.cdc.gov ??? National [place] on Aging: www.roque.nih.gov Contact a doctor if: ??? You are afraid of falling at home. ??? You feel weak, drowsy, or dizzy at home. ??? You fall at home. Summary ??? There are many simple things that you can do to make your home safe and to help prevent falls. ??? Ways to make your home safe include removing things that can make you trip and installing grab bars in the bathroom. ??? Ask for help when making these changes in your home. This information is not intended to replace advice given to you by your health care provider. Make sure you discuss any questions you have with your health care provider. Document Revised: 05/26/2021 Document Reviewed: 05/26/2021 [employer] Patient Education ?? 2021 [employer] Emergency Awareness and Preventative Care STROKE is an EMERGENCY Every Minute Counts Act FAST and Check for these signs: FACE Does the face look uneven? ARM Does one arm drift down? SPEECH Does their speech sound strange? TIME Call at any sign of stroke Stroke Risk Factors Atrial Fibrillation (irregular heartbeat) Diabetes Family history of stroke Heart Disease Heavy alcohol use High Blood Pressure High Cholesterol Physical inactivity and obesity Smoking Cigarette Smoking The facts are clear, cigarette smoking will shorten your life. Smoking can cause many illnesses along the way. As a healthcare provider, we recommend that you stop smoking. Assistance with quitting is available by contacting 2-581-FFIHNOW. This is a free resource providing counseling, support, and referral. Or you may contact your personal physician. National Suicide Prevention Lifeline: The National Suicide Prevention Lifeline is a national network of local crisis centers that provides free and confidential emotional support to people in suicidal crisis or emotional distress 24 hours a day, 7 days a week. Don't Wait! Stop a Heart Attack Before it Starts What is a heart attack? A heart attack is damage or to a part of the heart from severely decreased or lack of blood flow to the heart. Over time, arteries can become narrow from the buildup of fat and cholesterol, which is called plaque. The plaque can rupture causing a blood clot to form. When the blood clot forms, the artery can become severely narrowed or completely blocked, causing a heart attack. Heart attack is the leading cause of in the [place]. 85% of muscle damage occurs within the first 2 hours. Delay in the recognition of heart attack symptoms increases the chances of . Know the early symptoms of a heart attack: Nausea Feeling of fullness in chest Jaw Pain Pain that travels down one or both arms Fatigue/being tired Anxiety Back Pain Chest pressure, squeezing, or discomfort Shortness of breath Sweating, or a cold sweat Feeling of impending doom There are unusual signs of a heart attack, too! Women, the elderly, and diabetics may present with atypical symptoms: Fainting/dizziness Weakness Confusion Risk Factors for a Heart Attack Some heart disease risk factors, such as age and family history, cannot be changed. Others, like smoking and lack of exercise, can be changed. Smoking High Cholesterol High Blood Pressure Family History Obesity Age Gender (Males are at higher risk) Lack of Exercise Diabetes Diet Stress Excessive Alcohol Intake If you or someone you know is experiencing the signs and symptoms of a heart attack, DON???T DELAY. Call immediately and seek help. If someone collapses, perform CPR! Do not attempt to drive if you are having symptoms of heart attack. Hands-Only CPR Why Hands-Only CPR? Hands-Only CPR has been shown to be as effective as conventional CPR for cardiac arrests that occur outside of a hospital. Survival depends on immediately receiving CPR from someone nearby. How do you perform Hands-Only CPR? There are two easy steps: Call 9-1-1 if you see a teen or adult collapse Push hard and fast in the center of the chest at a beat of 100 beats per minute. Save a life! 4 WAYS TO GET AHEAD OF SEPSIS SEPSIS is a MEDICAL EMERGENCY. Time matters! Infections put you and your family at risk for a life-threatening condition called sepsis. Sepsis is the body's extreme response to an infection. It is life-threatening, and without timely treatment, sepsis can rapidly lead to tissue damage, organ failure, and . Sepsis happens when an infection you already have-in your skin, lungs, urinary tract or somewhere else-triggers a chain reaction throughout your body. 1 PREVENT INFECTIONS Take good care of chronic conditions. Talk to your doctor about getting the recommended vaccines. 2 PRACTICE GOOD HYGIENE Wash your hands frequently. Keep cuts or open sores clean and covered until they are healed. 3 KNOW THE SYMPTOMS Confusion or disorientation Shortness of breath High heart rate Fever, shivering, or feeling very cold Extreme pain or discomfort Clammy or sweaty skin 4 ACT FAST Get medical care IMMEDIATELY if you suspect sepsis or if you have an infection that is not getting better or is getting worse. To learn more about sepsis and how to prevent infections, visit www.cdc.gov/sepsis. Test Results Laboratory or Other Results This Visit (last charted value for your 07/27/2022 visit) No Laboratory or Other Results This Visit Patient Name:SAHIL PIERSON David I have received and understand this information and was given the opportunity to ask questions. Patient/Date Pitter Name: Patient/Date Pitter Signature: Relationship to Patient: Clinician/Hospital Date Pitter Signature: Date: Electronically signed by Dorita, [facility] Conversion Slicing Machine Tender Cerner at 02/24/2023 7:59 PM CDT documented in this encounter Plan of Treatment Not on file documented as of this encounter Visit Diagnoses Not on filedocumented in this encounter Care Teams Sawmill Supervisor Relationship Specialty Start Date End Date Reva Garcia MD [address] [place] [id number] PCP - General Family Medicine 02/24/25 documented as of this encounter
--- OUTSIDE RECORDS SUMMARY | 2025-05-16 11:18 | XMS_ITS | Encounter Summary ---
Author Organization [employer] ([place], [place], [place], [place]) Address [address] [place] [address] Care Team Providers Care Interface Engineer Name Role Phone Reva Garcia MD Primary Care Provider [phone] Encounter Details Date Type Department Care Team (Late st Contact Info) Description 07/27/2022 Transcribed Document [facility] [place] [facility] [address] [place] [address] ProviderEric MD [address] [place] [address] Social History Tobacco Use Types Packs/Day Years Used Date Smoking Tobacco: Never Assessed Family and Community Support Answer Brian e Recorded Help with Day to Day Activities Not on file 11/23/2023 Feeling Lonely or Isolated Not on file 11/23 Educational Attainment Answer Date Phi rded Speak language other than Slovenian at home Not on file 11/23/2023 Want [...] Conversion Note - Eric ProviderMD - 07/27/2022 9:30 AM CDT Patient Education Materials Follows: Fall Prevention in the Home, Adult Falls [...] Keep items that you use often in xsev-qy-[id number] places. Lower the shelves around your home [...] the way. ??? Do not use floor dominican or wax that makes floors slippery. What [...] Control and Prevention, [place]: www.cdc.gov ??? National [place] on Aging: www.roque.nih.gov Contact a doctor if: [...] provider. Document Revised: 05/26/2021 Document Reviewed: 05/26/2021 [employer] Patient Education ? 2021 [employer] documented in this encounter Plan of Treatment Not on file documented as of this encounter Visit Diagnoses Not on filedocumented in this encounter Care Teams Interface Engineer Relationship Specialty Start Date End Date Reva Garcia MD [address] [address] PCP - General Family Medicine 02/24/25 documented as of this encounter
--- OUTSIDE RECORDS SUMMARY | 2025-05-16 11:18 | XMS_ITS | Referral Summary ---
Author Organization [employer] ([place], [place], [place], [place]) Address [address] [place] [address] Care Team Providers Care Training Analyst Name Role Phone Reva Garcia MD Primary Care Provider [phone] Encounters Date Type Department Care Team Description 02/26/2025 Outside Orders [facility] Central Scheduling [address] [place] [address] Amanda Don LPN 02/26/2025 Outside Orders [facility] Scheduling [address] [place] [address] Amanda Don LPN Osteolysis, right ankle and foot (Primary Dx) 02/26/2025 Travel 02/26/2025 10:07 AM EDT - 02/26/2025 11:59 PM EDT Hospital Encounter [facility] MRI [address] [place] [address] Amanda Don NP Right foot pain Discharge Disposition: Home or Self Care 02/26/2025 Outside Orders [facility] Scheduling [address] [place] [address] Amanda Don LPN Right foot pain (Primary Dx) 02/24/2025 Travel 02/24/2025 8:53 AM EDT - 02/24/2025 10:02 AM EDT Emergency [facility] Emergency Department [address] [place] [address] Cunningham, Melissa F, MD Blister (nonthermal), left great toe, initial encounter (Primary Dx); Blister of second toe of right foot, initial encounter; Facial laceration, initial encounter Discharge Disposition: Home or Self Care from Last 3 Months Allergies No known active allergies Medications amlodipine besylate (AMLODIPINE ORAL) Take 10 mg by mouth daily. 07/27/2022 Active irbesartan (AVAPRO) 300 MG tablet 1 Tab, Oral, Daily, 0 Refill(s) 07/27/2022 Active insulin glargine,hum.re c.anlog (LANTUS SOLOSTAR U-100 INSULIN SUBQ) 10 Units, SubCutaneous , Solution, Once a day (at bedtime), # 10 mL, 0 Refill(s) 07/27/2022 Active insulin aspart (NOVOLOG FLEXPEN U-100 INSULIN SUBQ) See Instructions , sliding scale tid, 0 Refill(s) sliding scale tid 07/27/2022 Active tiZANidine (ZANAFLEX) 4 MG tablet Take 4 mg by mouth 3 (three) times daily. 07/27/2022 Active Immunizations Name Administration Dates Next Due Tdap 02/24/2025 Social History Tobacco Use Types Packs/Day Years [...] Date Phi rded Speak language other than Kyrgyz at home Not on file 11/23/2023 Want [...] on file Sexual Orientation Not on file Last Filed Vital Signs Vital Sign Reading Time Taken Comments Blood Pressure 176/95 02/24/2025 9:03 AM EDT Pulse 97 02/24/2025 9:03 AM EDT Temperature 36.2 C (97.1 F) 02/24/2025 8:59 AM EDT Respiratory Rate 16 02/24/2025 8:59 AM EDT Oxygen Saturation 98% 02/24/2025 9:03 AM EDT Inhaled Oxygen Concentration - - Weight 117.9 kg (260 lb) 02/26/2025 2:00 PM EDT Height 185.4 cm (6' 1 ) 02/24/2025 8:59 AM EDT Body Mass Index 34.3 02/24/2025 8:59 AM EDT Plan of Treatment Not on file Medical Devices Implanted Type Area Pneumatic Jacketer Device Identifier Shelf Expiration Date Model / Serial / Lot Spine Spine Procedures Procedure Name Priority Date/Time Associated Diagnosis Comments MR LOWER EXTREMITY JOINT ONLY WITH & WITHOUT CONTRAST RIGHT Routine 02/26/2025 2:58 PM EDT Right foot pain POCT-CREATININE NOVA Routine 02/26/2025 2:14 PM EDT FS_SJH_MODEL_LACERA TION REPAIR Routine 02/24/2025 9:44 AM EDT from Last 3 Months Results * MR lower extremity joint only without & with contrast right (02/26/2025 2:58 PM EDT) Anatomical Region Laterality Modality Lower Extremity, Hip, Knee, Ankle Magnetic Resonance (MRI) 02/26/2025 3:13 PM EDT Impressions 02/26/2025 3:36 PM EDT 1. Soft tissue inflammation and enhancement in the plantar aspect of the second digit, as described. 2. No definite evidence of acute osteomyelitis. Images reviewed, interpreted, and dictated by Lokesh Fletcher MD Narrative 02/26/2025 3:36 PM EDT Name: SAHIL PIERSON : 1980 PRE AND POSTINFUSION RIGHT FOOT MRI HISTORY: Second digit edema. Evaluate for osteomyelitis. FINDINGS: Multiplanar imaging of the foot was obtained with attention to the second digit. There is mild subcutaneous soft tissue edema identified within the second digit. However, there is no definite evidence of underlying marrow edema. On the pre and postinfusion images, there is rather extensive soft tissue enhancement identified along the plantar aspect of the second digit. There is no evidence of osseous enhancement. The Achilles tendon and plantar fascia appear intact. Procedure Note Lokesh Fletcher MD - 02/26/2025 Name: SAHIL PIERSON : 1980 PRE AND POSTINFUSION RIGHT FOOT MRI HISTORY: Second digit edema. Evaluate for osteomyelitis. FINDINGS: Multiplanar imaging of the foot was obtained with attention to the second digit. There is mild subcutaneous soft tissue edema identified within the second digit. However, there is no definite evidence of underlying marrow edema. On the pre and postinfusion images, there is rather extensive soft tissue enhancement identified along the plantar aspect of the second digit. There is no evidence of osseous enhancement. The Achilles tendon and plantar fascia appear intact. IMPRESSION: 1. Soft tissue inflammation and enhancement in the plantar aspect of the second digit, as described. 2. No definite evidence of acute osteomyelitis. Images reviewed, interpreted, and dictated by Lokesh Fletcher MD Amanda Don NP IMG MRI ORDERABLES Final Result * POC-Creatinine (02/26/2025 2:14 PM EDT) POC-Creatinine 1.0 mg/dL 02/26/2025 2:18 PM EDT [facility] POC-EGFR 97 mL/min/1. 73M2 02/26/2025 2:18 PM EDT [facility] Comment:Proceed with contras t if eGFR > 45 ml/min/1.73 when performed on the NovaSTAT strip Creatinine meter. Harbour Master John Clemens 02/26/2025 2:18 PM EDT [facility] Blood 02/26/2025 2:14 PM EDT 02/26/2025 2:17 PM EDT Narrative [facility] - 02/26/2025 2:18 PM EDT Harbour Master ID is - [id number] Amanda Don NP POINT OF CARE TEST ORDERABLES F inal Result [facility] [address] [place] [address] * Laceration repair (02/24/2025 9:44 AM EDT) Narrative Melissa Cunningham MD - 02/24/2025 9:44 AM EDT Hannah Garcia PA-C 02/24/2025 9:46 AM Laceration repair Date/Time: 02/24/2025 9:44 AM Performed by: Hannah Garcia PA-C Authorized by: Hannah Garcia PA-C Consent: Consent obtained: Verbal Consent given by: Patient Risks discussed: Infection, poor cosmetic result and poor wound healing Alternatives discussed: No treatment and delayed treatment Crosby protocol: Patient identity confirmed: Verbally with patient Anesthesia: Anesthesia method: None Laceration details: Location: Face Face location: Nose Length (cm): 1 Exploration: Hemostasis achieved with: Direct pressure Treatment: Area cleansed with: Chlorhexidine Amount of cleaning: Standard Skin repair: Repair method: Tissue adhesive Approximation: Approximation: Close Repair type: Repair type: Simple Post-procedure details: Dressing: Open (no dressing) Procedure completion: Tolerated well, no immediate complications Comments: Provisional flap-like laceration Hannah Garcia PA-C PROCEDURE/MINOR SURGICAL ORDERABLES Final Result from Last 3 Months Insurance Care Teams Training Analyst Relationship Specialty Start Date End Date Reva Garcia MD [address] [facility] [address] [place] [address] PCP - General Family Medicine 02/24/25
--- OUTSIDE RECORDS SUMMARY | 2025-05-16 11:18 | XMS_ITS | Encounter Summary ---
Author Organization [employer] ([place], [place], [place], [place]) Address [address] [place] [address] Care Team Providers Care Pharmacy Technologist Name Role Phone Reva Garcia MD Primary Care Provider [phone] Encounter Details Date Type Department Care Team (Late st Contact Info) Description 07/27/2022 Transcribed Document [facility] [place] Family Medicine [address] [place] [address] ProviderEric MD [address] [place] [address] Social History Tobacco Use Types Packs/Day Years Used Date Smoking Tobacco: Never Assessed Family and Community Support Answer Brian e Recorded Help with Day to Day Activities Not on file 11/23/2023 Feeling Lonely or Isolated Not on file 11/23 Educational Attainment Answer Date Phi rded Speak language other than Swiss at home Not on file 11/23/2023 Want [...] Conversion Note - Eric ProviderMD - 07/27/2022 10:38 AM CDT Patient: SAHIL PIERSON Age: 41 Years Sex: Male : 1980 Chief Complaint pain in upper back, ribs, and hip Primary Care Provider NO, FAMILY (REF) MD History of Present Illness This is a pleasant 41-year-old male referred by [facility] nurse practitioner for evaluation treatment of his chronic pain. Patient reports a long history of back pain, he had a lumbar discectomy performed in 2010 and then again in November [address] Head. Despite the surgery in November 2019 he is continued to struggle with left leg pain. He had to injections done by Dr. Rowland, he only had a several days of relief from each and so they trialed a spinal cord stimulator which was beneficial. He had the permanent implant performed by Dr. Head, had a paddle lead implanted. Patient reports that immediately after surgery he had thoracic back pain, underneath his shoulder blade, radiates around his right side. The stimulator has helped significantly with the left leg pain. He reports that he brought this to the attention of his providers and that they never seem to pay much attention to it, he is undergone several attempts at reprogramming, all without any improvement. Even with the stimulator off he still has the pain. They started him on Cymbalta and increase the dose, it also did not help. Recently they told him that this is something he may have to live with. He is very frustrated with his care there and is seeking out a second opinion. He has been seeking disability, there have been some issues with this as well. He also reports struggling a lot with depression, he thought the stimulator was going to be a cure for his pain and said its seemingly making him worse. 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 He does not want to take opiate medications. He wants to find some different solutions. He just wants to have his pain controlled and have a better quality of life. ORT 2. PHQ 8. MRI lumbar spine 09/25 increasing enhancement of the left lateral and posterior margins of the left L4/5 level in the subarticular recess and proximal neural foraminal region of hypertrophic scarring with increase in involvement from 6 months prior. MRIs of thoracic spine shows mild degenerative changes at T11/12 and T12/L1. X-ray of the thoracic spine 05/03/2022: Spinal cord stimulator leads project unchanged overlying the T8 and T9 vertebral bodies with leads entering at the T9/10 interspace. Mild multilevel thoracic spondylosis that are similar to previous. Patient complains today of constant 6/10 pain located in the middle part of his back, more on the right side underneath the right scapula. This pain can radiate around to the lateral rib cage but not anteriorly. He also notices with reaching or with squeezing or hugging pain radiating down the back part of his arms. He reports the right thumb, index, middle finger are cold compared to the lateral 2 fingers as well. He reports still having some pain in the left outer hip, this is more prevalent with raising his leg, transitioning, standing and walking. He also has an area of tightness in the right hamstring. He describes his pain as burning, spasming, stinging, tingling, sharp. He reports it is very hard for him to get comfortable in any position other than laying down. He is worse with coughing, sitting, bending, raising his arms, lifting, driving, walking, twisting, sexual activity. He denies having any associated bowel or bladder incontinence or saddle anesthesia that are new Review of Systems 14 system review performed today. Of note his blood pressure was elevated, he does see his primary care for this and they are monitoring. Pertinent positives and negatives are in HPI. He reports being partially dependent on others for his functional status Vital Signs T: 36.8 ??C HR: 99(Peripheral) RR: 18 BP: 175/118 SpO2: 98% HT: 182.88 cm WT: 127.27 kg BMI: 38.1 Oxygen Settings (Last) Oxygen Therapy Mode: Room air (07/27/22 08:12:00) Physical Exam Spine, thoracic: Surgical scar located in the region of T10, no focal tenderness no muscular tension was noted, range of motion: Limited and painful in all ranges Spine, lumbosacral: Well-healed surgical scar, no areas of focal tenderness, range of motion was limited and painful in all ranges, straight leg raise positive on the left, negative on the right Neurologic: Gait antalgic, cranial nerves II through XII grossly intact Strength: 5/5 iliopsoas, hamstrings, quadriceps, gastrocnemius, tibialis anterior, EHL, strength 5/5 at the bilateral deltoid, biceps, triceps, intrinsic hand and oracle analyst Deep Tendon Reflexes: symetrical at the bilateral biceps, triceps, brachioradialis, patella, Phuc Sensation: intact to light touch though diminished over the median nerve in the right hand from the wrist to distal General: No acute distress, well-developed, well-nourished, appears stated age, obese HEENT: Atraumatic, extraocular movements intact, moist mucous membranes Neck: Supple, trachea midline, no palpable lymph nodes Cardiovascular: Regular rate and rhythm, no murmurs rubs or gallops Pulmonary: Nonlabored breathing, no wheezes, rales or rhonchi Abdomen: Normoactive bowel sounds, soft, nondistended, nontender Skin: No obvious rashes or lesions Extremities: No clubbing, no cyanosis, no edema. There is a temperature discrepancy in the right hand between the thumb, index, middle finger and the ring and pinky finger Psychiatric: Alert and oriented x3, mood and affect appropriate, judgment and insight appropriate, no signs of oversedation or intoxication Assessment/Plan Failed back surgical syndrome Spinal cord stimulator implant Thoracic back pain Myofascial pain Chronic pain Mr. Pierson is an unfortunate situation. He has had 2 back surgeries. He has scar tissue present on his MRI. Failed interventional treatments and has had a spinal cord stimulator but is now having worsening mid back pain. He feels like this is not being adequately addressed with those providers. I do not think that they have done anything wrong. I think that in the same situation I would take a very similar approach. It is common to undergo multiple attempts at reprogramming. It is common to make sure the patient is not overstimulating. Unfortunately at this point it does seem that he is still having significant problems from the location of the stimulator. There could be multiple reasons for this. At this point he is not willing to say that he would like to have it removed. I am not sure that it could be removed as it does seem like he forms a significant amount of scar tissue. I do not see any signs of spinal cord compression on his exam that are concerning to me at this point. Rightfully so does not want to take pain medications. He is tried anti-inflammatories, Tylenol, Cymbalta without much improvement. We discussed taking a conservative treatment approach for him. I think that there is possibility he could improve some with physical therapy and with muscle relaxer. Treatment plan: Interventions: None currently, consider updated imaging, consider a referral to Dr. Diaz regarding explant Rehabilitation: Referring him to physical therapy today Behavioral: Reports a low risk score. Wants to avoid narcotic medicines. A drug screen was taken today as part of our inpatient evaluation. Medications: We will start a tizanidine 4 mg 3 times a day. We will follow-up in 2 months. Given the situation and lack of other treatment options I have advised him that an opiate medication could of benefit to him if all other options are failing. Ordered: tiZANidine, 1 Tab, Oral, Q8H, # 90 Tab, 1 Refill(s), Pharmacy: [facility], 182.88, cm, 07/27/22 8:36:00 EDT, CLINICALHEIGHT, 127.27, kg, 07/27/22 8:36:00 EDT, CLINICALWEIGHT VTE Prophylaxis - Medical No VTE Prophylaxis Orders. Problem List/Past Medical History Ongoing Chronic back pain greater than 3 months duration Depression Diabetes History of obstructive sleep apnea Hypertension Insomnia Rheumatoid arthritis Sleep apnea Historical No qualifying data Procedure/Surgical History lumbar discetomy, meniscus tear right and left knee, scar tissue removal of left knee, spinal cord stimulator placement, tonsillectomy. Home Medications (5) Active amLODIPine 10 mg oral tablet 10 mg = 1 Tab, Oral, Daily irbesartan 300 mg oral tablet 300 mg = 1 Tab, Oral, Daily Lantus Solostar Pen 100 units/mL subcutaneous solution 10 Units, SubCutaneous, Once a day (at bedtime) NovoLOG FlexPen 100 units/mL injectable solution See Instructions tiZANidine 4 mg oral tablet 4 mg = 1 Tab, Oral, Q8H Allergies No Known Allergies Social History Alcohol Alcohol Use History No. Substance Abuse Drug Use Hx: No. Tobacco Never (less than 100 in lifetime) Smoking Status. Additional Documentation Code Status No Code Status Order on Record documented in this encounter Plan of Treatment Not on file documented as of this encounter Visit Diagnoses Not on filedocumented in this encounter Care Teams Pharmacy Technologist Relationship Specialty Start Date End Date Reva Garcia MD [address] [place] [address] PCP - General Family Medicine 02/24/25 documented as of this encounter
--- OUTSIDE RECORDS SUMMARY | 2025-05-16 11:18 | XMS_ITS | Encounter Summary ---
Author Organization [employer] ([place], [place], [place], [place]) Address [address] [place] [address] Care Team Providers Care Sound Printer Name Role Phone Reva Garcia MD Primary Care Provider [phone] Encounter Details Date Type Department Care Team (Late st Contact Info) Description 07/27/2022 Transcribed Document [facility] [place] [address] [place] [address] ProviderEric MD [address] [place] [address] Social History Tobacco Use Types Packs/Day Years Used Date Smoking Tobacco: Never Assessed Family and Community Support Answer Brian e Recorded Help with Day to Day Activities Not on file 11/23/2023 Feeling Lonely or Isolated Not on file 11/23 Educational Attainment Answer Date Phi rded Speak language other than Montenegrin at home Not on file 11/23/2023 Want [...] Eric ProviderMD - 07/27/2022 9:30 AM CDT Nursing Discharge Summary Entered On: 07/27/2022 9:31 EDT Performed On: 07/27/2022 9:30 EDT by RACHNA HOWARD finishing lab technician Documentation Discharge Date/Time : 07/27/2022 9:30 EDT Patient Disposition, General : Discharge Discharge To : Home with ambulatory/outpatient follow-up Mode Of Departure, General Discharge : Ambulatory Accompanied By, Discharge : Unaccompanied Prescriptions Given to Patient : Electronically sent Medications Given to Patient : No Discharge Instructions Reviewed With, Opportunity For Questions Given : Patient Patient Education Completed : Yes Teaching Method : Explanation, Printed materials Teaching Evaluation : Verbalizes understanding RACHNA HOWARD RN - 07/27/2022 9:30 EDT Electronically signed by [facility] Conversion Product Management Intern Cerner at 02/24/2023 8:05 PM CDT documented in this encounter Plan of Treatment Not on file documented as of this encounter Visit Diagnoses Not on filedocumented in this encounter Care Teams Sound Printer Relationship Specialty Start Date End Date Rvea Garcia MD [address] [facility] [address] [place] [address] PCP - General Family Medicine 02/24/25 documented as of this encounter
--- OUTSIDE RECORDS SUMMARY | 2025-05-16 11:18 | XMS_ITS | Clinical Summary ---
Author Organization [employer] ([place], [place], [place], [place]) Address [address] [place] [address] Care Team Providers Care Lymphedema Therapist Name Role Phone Reva Garcia MD Primary Care Provider [phone] Allergies No known active allergies Medications amlodipine [...] mouth 3 (three) times daily. 07/27/2022 Active Encounters Date Type Department Care Team Description 02/26/2025 10:07 AM EDT - 02/26/2025 11:59 PM EDT Hospital Encounter [address] [phone] Amanda Don NP Right foot pain Discharge Disposition: Home or Self Care 02/26/2025 Outside Orders [facility] Central Scheduling [address] [place] [address] Amanda Don LPN 02/26/2025 Outside Orders [facility] Central Scheduling [address] [place] [address] Amanda Don LPN Osteolysis, right ankle and foot (Primary Dx) 02/26/2025 Travel 02/26/2025 Outside Orders [facility] Central Scheduling [address] [place] [address] Amanda Don LPN Right foot pain (Primary Dx) 02/24/2025 8:53 AM EDT - 02/24/2025 10:02 AM EDT Emergency [facility] Emergency Department [address] [place] [phone] Melissa Cunningham MD Blister (nonthermal), left great toe, initial encounter (Primary Dx); Blister of second toe of right foot, initial encounter; Facial laceration, initial encounter Discharge Disposition: Home or Self Care 02/24/2025 Travel from Last 3 Months Immunizations Name Administration Dates Next Due Tdap 02/24/2025 Family History Medical History Relation Name Comments Diabetes Father High blood pressure Father Diabetes Paternal Grandfather Relation Name Status Comments Father Paternal Grandfather Social History Tobacco Use Types Packs/Day Years [...] Date Phi rded Speak language other than Yemeni at home Not on file 11/23/2023 Want [...] 02/24/2025 8:59 AM EDT Plan of Treatment Health Maintenance Due Date Last Done Comments Depression Screening (12+) 1993 HIV Screening 1996 Hepatitis C Screening 1999 Lipid Panel 2016 COVID-19 VACCINE (3 - 2023-2 5 season) 2024 10/18/2021, 02/04/2021 Influenza Vaccine (#1) 2025 Tobacco Cessation Counseling and Screening (12+) 02/24/2026 02/24/2025 DTAP/TDAP/TD VACCINES (3 - T d or Tdap) 02/24/2035 02/24/2025, 02/10/1997 Pneumococcal Vaccine: 0-49 Years Aged Out No longer eligible b ased on patient's age to complete this topic Medical Devices Implanted Type Area Stone [employer] Sawyer Device Identifier Shelf Expiration Date Model / [...] by Lokesh Fletcher MD Amanda Don NP [facility] [place] MRI ORDERABLES Final Result * POC-Creatinine (02/26/2025 2:14 PM EDT) POC-Creatinine 1.0 mg/dL 02/26/2025 2:18 PM EDT [facility] POC-EGFR 97 mL/min/1. 73M2 02/26/2025 2:18 PM EDT [facility] Comment:Proceed with contras t if eGFR > 45 ml/min/1.73 when performed on the NovaSTAT strip Creatinine meter. Polishing Machine Operator Sarath Cordellwhitley 02/26/2025 2:18 PM EDT [facility] Blood 02/26/2025 2:14 PM EDT 02/26/2025 2:17 PM EDT Narrative [facility] - 02/26/2025 2:18 PM EDT Polishing Machine Operator ID is - [id number] us Amanda Don NP POINT OF CARE TEST ORDERABLES F inal Result [facility] [address] [place] [address], [facility] [phone] * Laceration repair (02/24/2025 9:44 AM EDT) Narrative Melissa Cunningham MD - 02/24/2025 9:44 AM EDT Hannah Garcia PA-C 02/24/2025 9:46 AM Laceration repair Date/Time: 02/24/2025 9:44 AM Performed by: Hannah Garcia PA-C Authorized by: Hannah Garcia PA-C Consent: Consent obtained: Verbal Consent given by: Patient Risks discussed: Infection, poor cosmetic result and poor wound healing Alternatives discussed: No treatment and delayed treatment [place] protocol: Patient identity confirmed: Verbally with patient [...] no immediate complications Comments: Provisional flap-like laceration us Hannah Garcia PA-C PROCEDURE/MINOR SURGICAL ORDERABLES Final Result from Last 3 Months Insurance [facility] MEDICAID Care Teams Lymphedema Therapist Relationship Specialty Start Date End Date Reva Garcia MD [address] [place] [address] [address] [place] [address] PCP - General Family Medicine 02/24/25
--- OUTSIDE RECORDS SUMMARY | 2025-05-16 11:18 | XMS_ITS | Encounter Summary ---
Author Organization [employer] ([place], [place], [place], [place]) Address [address] [place] [address] Care Team Providers Care Flow Floor Attendant Name Role Phone Reva Garcia MD Primary Care Provider [phone] Reason for Referral * MRI (Routine) - Pending Review Specialty Diagnoses / Procedures Referred By Cyndie howard Referred To Contact Radiology Diagnoses Right foot pain Procedures MR lower extremity joint only without & with contrast right Amanda Don NP [address] [place] [address] Phone: tel: fax: Referral ID Status Reason Start Date Expiration Date V isits Requested Visits Authorized [id number] Pending Review Other 02/26/2025 02/26/2026 1 1 Encounter Details Date Type Department Care Team (Late st Contact Info) Description 02/26/2025 Outside Orders [facility] Central Scheduling [address] [place] [address] Amanda Don LPN Right foot pain (Primary Dx) Social History Tobacco Use Types Packs/Day Years [...] Date Phi rded Speak language other than Faroese at home Not on file 11/23/2023 Want [...] on file documented as of this encounter Plan of Treatment Not on file documented as of this encounter Results * MR lower extremity joint only [...] Fletcher MD - 02/26/2025 Name: SAHIL PIERSON ARON: 1980 PRE AND POSTINFUSION RIGHT FOOT MRI [...] Don NP IMG MRI ORDERABLES Final Result documented in this encounter Visit Diagnoses Diagnosis Right foot pain- Primary Pain in soft tissues of limb Right foot pain Pain in soft tissues of limb documented in this encounter Care Teams Flow Floor Attendant Relationship Specialty Start Date End Date Reva Garcia MD 209 [facility] [address] [place] [address] PCP - General Family Medicine 02/24/25 documented as of this encounter
--- OUTSIDE RECORDS SUMMARY | 2025-05-16 11:18 | XMS_ITS | Encounter Summary ---
Author Organization [employer] ([place], [place], [place], [place]) Address [address] [place] [address] Care Team Providers Care Drencher Name Role Phone Reva Garcia MD Primary Care Provider [phone] Encounter Details Date Type Department Care Team (Late st Contact Info) Description 07/27/2022 Transcribed Document [facility] [place] Family Medicine [address] [place] [address] ProviderEric MD [address] [place] [address] Social History Tobacco Use Types Packs/Day Years Used Date Smoking Tobacco: Never Assessed Family and Community Support Answer Brian e Recorded Help with Day to Day Activities Not on file 11/23/2023 Feeling Lonely or Isolated Not on file 11/23 Educational Attainment Answer Date Phi rded Speak language other than Paraguayan at home Not on file 11/23/2023 Want [...] Conversion Note - Eric ProviderMD - 07/27/2022 8:12 AM CDT Ambulatory Intake and History Entered On: 07/27/2022 8:12 EDT Performed On: 07/27/2022 8:12 EDT by CHRISTINE RENDON RN General Info Ambulatory Chief Complaint : pain in upper back, ribs, and hip CHRISTINE RENDON RN - 07/27/2022 8:17 EDT Primary Language : Paraguayan CHRISTINE RENDON RN - 07/27/2022 8:12 EDT Height and Weight, Clinical Dosing Height, Feet : 6 ft(Converted to: 183 cm, 72 Inch) Height, Inches : 0 Inch(Converted to: 0 ft 0 Inch, 0.00 cm) Clinical Height : 182.88 cm Clinical Dosing Weight : 127.27 kg Weight, Pounds : 280 lb Body Surface Area (BSA) : 2.46 m2 Body Mass Index : 38.1 kg/m2 (HI) [place] Body Weight : 77 kg CHRISTINE RENDON RN - 07/27/2022 8:36 EDT Height Source : Stated Height Entry Format : [place] Weight Source : Standing scale Weight Entry Format : [place] CHRISTINE RENDON RN - 07/27/2022 8:12 EDT Vital Measurements Systolic Blood Pressure : 175 mmHg (HI) Diastolic Blood Pressure : 118 mmHg (HI) CHRISTINE RENDON RN - 07/27/2022 8:47 EDT Temperature, Fahrenheit : 98.3 Deg F Clinical Temperature, C : 36.8 Deg C Peripheral Pulse Rate : 99 bpm Respiratory Rate : 18 Breaths/Min Oxygen Saturation : 98 % Oxygen Therapy Mode : Room air CHRISTINE RENDON RN - 07/27/2022 8:36 EDT Temperature Source : Temporal artery scanning Temperature Mode : Fahrenheit Blood Pressure Location : Arm, right upper Blood Pressure Source : Non-Invasive BP Device Blood Pressure Position : Sitting CHRISTINE RENDON RN - 07/27/2022 8:12 EDT Pain Assessment Pain Comment : 80-90% pain relief when pt lays down CHRISTINE RENDON RN - 07/27/2022 8:43 EDT Pain Intervention, Non-Drug : Cold therapy, Exercise, Heat, Positioning, Relaxation Pain Improved by Intervention : Yes Intervention, Consult : Pain management CHRISTINE RENDON RN - 07/27/2022 8:36 EDT Pain Improved by : Cold therapy, Exercise, Heat therapy, Medication, Relaxation, Other: PT, traction CHRISTINE RENDON RN - 07/27/2022 8:17 EDT Pain Assessment : Initial assessment Pain Scale Used : 0-10 Scale Location : Back, upper, Hips, bilateral, Other: rib pain Onset : Chronic Quality : Burning, Sharp, Spasms, Tingling Pain Radiation : Yes Pain Radiation Location : Arms, bilateral Pain Worsened by : Breathing, Movement CHRISTINE RENDON RN - 07/27/2022 8:15 EDT Patient Health Questionnaire Depression Scale-9 (PHQ-9) Trouble Falling/Staying Asleep/Sleeping : Several days Little Interest or Pleasure Doing Things : More than half the days Feeling Down, Depressed, Hopeless : Several days Feeling Tired or Little Energy : Several days Poor Appetite or Overeating : Several days Feel Bad About Self/That You are Failure : Not at all Trouble Concentrating on Things : Several days Moving/Speaking Slowly, Fidgety/Restless : Several days Thoughts of Better Off /Hurting Self : Not at all PHQ-9 Score : 8 CHRISTINE RENDON RN - 07/27/2022 8:36 EDT Functional Assessment Living Situation : Home CHRISTINE RENDON RN - 07/27/2022 8:36 EDT Teaching/Learning Assessment Barriers To Learning : None evident Individuals Taught : Patient Readiness to Learn : Cooperative Baseline Knowledge of Topic : None Readiness to Learn : Demonstration, Explanation Learning Style Preferences Patient : None Learning Style Preferences Family : None CHRISTINE RENDON RN - 07/27/2022 8:12 EDT Fall Risk Scales ABCs Fall Injury Risk Identification : None RIZO Hx Falls Immediate/Within 3 Months : No Rizo Secondary Diagnosis : Yes RIZO Use of Ambulatory Aid : None RIZO IV Therapy or IV Access : No Rizo Gait/Transferring : Normal, bedrest, immobile Rizo Mental Status : Oriented to own ability Rizo Fall Risk Score : 15 RIZO Fall Scale Risk Level : 0-24 Low Risk Constable Fall Interventions : Adequate lighting, Hourly comfort/safety rounds, Non-slip footwear, Personal items within reach, Room free of clutter/spills Barriers to Learning : None evident Learning Style Preferences Family : None Learning Style Preferences Patient : None CRHISTINE RENDON RN - 07/27/2022 8:36 EDT Sleep Apnea Risk Assmt BiPAP/CPAP Ordered for Home Use : Yes BiPAP/CPAP Used at Home : Yes CHRISTINE RENDON RN - 07/27/2022 8:36 EDT Hx of Obstructive Sleep Apnea Diagnosis : Yes Age over 50 Years Old : No Gender Male : Yes CHRISTINE RENDON RN - 07/27/2022 8:12 EDT Pain Scale Intensity : 6 CHRISTINE RENDON RN - 07/27/2022 8:15 EDT Image 4 - Images currently included in the form version of this document have not been included in the text rendition version of the form. documented in this encounter Plan of Treatment Not on file documented as of this encounter Visit Diagnoses Not on filedocumented in this encounter Care Teams Drencher Relationship Specialty Start Date End Date Reva Garcia MD [address] [facility] [address] [place] [address] PCP - General Family Medicine 02/24/25 documented as of this encounter
--- OUTSIDE RECORDS SUMMARY | 2025-05-16 11:18 | XMS_ITS | Encounter Summary ---
Author Organization [employer] ([place], [place], [place], [place]) Address [address] [place] [address] Care Team Providers Care Lead Programmer Analyst Name Role Phone Reva Garcia MD Primary Care Provider [phone] Reason for Referral * MRI (Emergency) - New Request Specialty Diagnoses / Procedures Referred By Cyndie howard Referred To Contact Radiology Diagnoses Osteolysis, right ankle and foot Procedures MR lower extremity without IV contrast right side Amanda Don NP [address] [place] [address] Phone: tel: fax: Referral ID Status Reason Start Date Expiration Date V isits Requested Visits Authorized [id number] New Request Other 02/26/2025 02/26/2026 1 1 Encounter Details Date Type Department Care Team (Late st Contact Info) Description 02/26/2025 Outside Orders [facility] Central Scheduling [address] [place] [address] Amanda Don LPN Osteolysis, right ankle and foot (Primary Dx) Social History Tobacco Use Types [...] Date Phi rded Speak language other than Chinese at home Not on file 11/23/2023 Want [...] as of this encounter Plan of Treatment Scheduled Orders Name Type Priority Associated Diagnoses Orde r Schedule MR lower extremity without IV contrast right side Imaging STAT Osteolysis, right ankle and foot Expected: 02/26/2025, Expires: 03/28/2026 documented as of this encounter Visit Diagnoses Diagnosis Osteolysis, right ankle and foot- Primary documented in this encounter Care Teams Lead Programmer Analyst Relationship Specialty Start Date End Date Reva Garcia MD [address] [facility] [address] [place] [address] PCP - General Family Medicine 02/24/25 documented as of this encounter
[2025-05-16 11:25] VITALS: BP 131/83; PULSE 69; RESP 18; O2SAT 100; BMI 33.6
[2025-05-16 11:42] VITALS: BP 126/88; PULSE 83; RESP 18; O2SAT 96
--- NOTE | 2025-05-16 11:54 | EXP.PM.HP ---
History of Present Illness *Admission Date: 05/16/25 *Reason for visit:: Intrathecal refill; DDD *History of present illness: Same [facility] Disclaimer: The information contained in this section may have been updated after the patient was seen, as this information can be updated by other users. Medical History Back pain with history of spinal surgery HTN (hypertension) Seasonal allergies Diabetes Surgical History History of knee surgery History of back surgery Family History Other No significant family history Social History Smoking Status: Never smoker alcohol intake: never substance use type: denies use current occupational status: other Travel in the last 8 weeks?: None Other Medical History Have you received the Flu Vaccine for this season: No Have you received the Pneumonia Vaccine: No Review of Systems Review of Systems Review of systems:: pertinent systems reviewed and negative unless documented below Review of systems (narrative): Review of Systems: General: No recent weight changes, no fever, no sleep disturbances Respiratory: No cough, no shortness of air, no recurring pulmonary infections Cardiovascular/peripheral vascular: No chest pain, no palpitations, no edema, no shortness of breath Gastrointestinal: No new onset incontinence, normal bowel movements reported Genitourinary: No new onset incontinence Musculoskeletal: Chronic back pain Psychiatric: [Normal mood/affect] Neurological: [Denies weakness in extremities], [denies balance issues] Meds Home Medications and Allergies Home Medications ?Medication ?Instructions ?Recorded ?Confirmed ?Type amlodipine 10 mg tablet 10 mg PO DAILY BLOOD PRESSURE 05/03/23 05/16/25 History blood-glucose sensor (FreeStyle 05/03/23 05/16/25 History Lora 3 Sensor device) cetirizine 10 mg tablet 10 mg PO DAILY ALLERGIES 05/03/23 05/16/25 History insulin aspart U-100 100 unit/mL See Rx Instructions .Route 05/03/23 05/16/25 History (3 mL) subcutaneous pen (Novolog .COMPLEX Diabetes FlexPen U-100 Insulin aspart) insulin glargine 100 unit/mL (3 See Rx Instructions .Route 05/03/23 05/16/25 History mL) subcutaneous pen (Lantus .COMPLEX Diabetes Solostar U-100 Insulin) irbesartan 300 mg tablet 300 mg PO DIRECTED BLOOD 05/03/23 05/16/25 History PRESSURE naproxen 500 mg tablet 500 mg PO DIRECTED Pain 05/03/23 05/16/25 History methocarbamol 750 mg tablet 750 mg PO TID . 06/06/23 05/16/25 History morphine (PF) 1 mg/mL injection 1 mg epidural CONT Pain 11/23/23 05/16/25 History solution New Prescriptions to Start Prescriptions: Allergies Allergy/AdvReac Type Severity Reaction Status Date / Time No Known Allergies Allergy Verified 07/30/24 11:26 Exam Data for Last 24 hours Vital signs and Labs for Last 24 Hours: Pulse Resp BP Pulse Ox O2 Del Method 83 18 126/88 96 Room Air 05/16/25 11:42 05/16/25 11:42 05/16/25 11:42 05/16/25 11:42 05/16/25 11:42 I & O for Last 24 hours: Intake & Output 05/13/25 05/14/25 05/15/25 05/16/25 23:59 23:59 23:59 23:59 Weight 255 lb Constitutional Constitutional: no acute distress *Routine HEENT Exam Head: Present normocephalic and atraumatic Eye: Present PERRL ENT: Present mucous membranes moist *Routine Neck Exam Neck: Present supple *Routine Respiratory Exam Respiratory: Present CTA bilaterally *Routine Cardiovascular Exam Cardiovascular: Present RRR *Routine Abdominal Exam Abdominal: Present soft *Routine Rectal Exam Rectal:: deferred *Routine Genitalia Exam Genitalia:: deferred Routine Back/Spine/Pelvis Exam Back/Spine: Present pain with flexion *Routine Skin Exam Skin: Present intact *Routine Neurological Exam Neurological: Present alert and oriented X3 Routine Psychiatric Exam Psychiatric: Present normal affect and normal thought process Assessment and Plan *Assessment and plan (1) Cervical radiculopathy: Status: Acute Category: Medical Code(s): M54.12 - Radiculopathy, cervical region (2) Neck pain: Status: Acute Category: Medical Code(s): M54.2 - Cervicalgia (3) Degenerative disc disease, cervical: Status: Acute Category: Medical Code(s): M50.30 - Other cervical disc degeneration, unspecified cervical region (4) Degenerative disc disease, thoracic: Status: Acute Category: Medical Code(s): M51.34 - Other intervertebral disc degeneration, thoracic region (5) Mid back pain: Status: Acute Category: Medical Code(s): M54.9 - Dorsalgia, unspecified Plan Patient has been instructed to contact the clinic with any concerns before the next appointment. Dr. Calderon has reviewed this note and agrees with this plan of care. This note was dictated using voice recognition software and make contain errors or omissions. All injections are used with Lidocaine, Bupivacaine and dexamethasone. Occasionally urine drug screen is needed to verify patient's compliance with our office pain contract. This is ordered based off specific treatments related to chronic pain with the potential to abuse certain medications.
--- NOTE | 2025-05-16 11:55 | EXP.PAIN.PRO ---
Procedure Date: 05/16/25 Time: 11:55 Anesthesiologist:: Becca Isaac APRN Complications:: None Pre-procedure Diagnosis:: Degenerative disc disease of cervical and thoracic spine with cervical and thoracic radiculopathy symptoms Post-procedure Diagnosis:: Same Indications for Procedure:: Patient is a pleasant 44-year-old male who presents today for intrathecal refill and reprogram. He rates his pain today a 4 out of 10. He denies any new falls or injuries. He does state he is still using his spinal cord stimulator of [employer] with no problems. Patient is still having issues with mid back pain that is worse with raising his right arm and that it will send a sharp shooting pain but is very short-lived. At our last visit we did discuss the possibility of changing his pump to periodic or flex dosing. He does state that he would like to try this. Patient is currently managed with morphine 2 mg/mL with a daily dose of 0.3291 mg/day. He denies any side effects. His Roberto Carlos has been reviewed and is appropriate. Physical Exam: General: Alert and oriented x3, no acute distress, pleasant and cooperative Lungs: Respirations even and unlabored, symmetrical chest expansion Eyes: PERRL Musculoskeletal: Flexion and extension of thoracic [spine] somewhat guarded secondary to pain, [antalgic gait noted] Neurological: Speech clear, no gross sensory deficit Procedure Details:: informed consent was obtained and the risk and benefits of the procedure were explained to the patient. The patient had noninvasive monitoring placed including noninvasive blood pressure cuff and pulse oximeter. Patient's pump was interrogated. The area over the pump was cleansed with chlorhexidine as a cleansing solution.. In sterile fashion the pump was accessed with a 22-gauge needle. Approximately 7 mls of the pump solution was removed and discarded appropriately. The pump was then refilled with 20 mL's of morphine 2 mg/mL. The needle was withdrawn and a bandage was placed over the puncture site. The infusion rate was reprogrammed and changed to flex dosing with a daily dose of 0.3784 mg/day.. The patient tolerated well with no complication. Plan and Disposition:: Patient tolerated the procedure well with no complications and was discharged neurologically intact. Patient tolerated this well. He was counseled that he will have a burst dose every 2 hours. Will give him a 1 week follow-up in case he has any side effects to the change in his pump settings. Patient was counseled that he can cancel this appointment if he does not need it. Patient agrees with this plan of care. Patient will return to clinic on or before their next intrathecal refill date. We will see the patient back in the clinic at the next intrathecal refill. Patient has been instructed to contact the clinic with any concerns before the next appointment. Dr. Calderon has reviewed this note and agrees with this plan of care. This note was dictated using voice recognition software and make contain errors or omissions. -- It Is medically necessary for this patient to continue to have their intrathecal pump refilled at regular intervals. This patient had an intrathecal pain pump implanted after meeting criteria of chronic intractable pain for greater than 3 months and failing conservative treatments. Patient has committed and been compliant to the treatment plan and all planned follow up care. Since implantation of the intrathecal pain pump, the patient has had decreased pain and been more functional. Oral medications have been reduced including intake of oral opioids. Patient continues to do well with intrathecal therapy with decrease in pain symptoms and increase in functional status. Stopping intrathecal medications can lead to life threatening withdrawal, seizures, cardiac arrest, severe pain, and possible . Pumps that are not refilled at regular intervals can be damages and cause and need for replacement. We continually titrate dose and concentration to optimize pain relief and function. We are limited in concentration for certain drugs to safely deliver medications through the pump and stay within the recommendations from the Polyanalgesic Consensus Committee Guidelines. Depending on dose and concentration these pumps may need to be refilled sooner than 3 months as we titrate. A UDS is needed to verify patient's compliance with our office pain contract. This is ordered based off specific treatments related to chronic pain with the potential to abuse certain medications.
[2025-05-16 12:07] VITALS: BP 129/86; PULSE 87; RESP 18; O2SAT 99
== END 2025-05-16 12:07 | disposition home or self-care (01) ==
PROVIDERS: Visit Provider Nurse Practitioner Family
DX: M50.10 Cervical disc disorder with radiculopathy, unspecified cervical region (principal); M51.34 Other intervertebral disc degeneration, thoracic region
CPT/HCPCS: 62370

== ENCOUNTER 2025-05-22 11:05 | Outpatient (POV) | payer MEDICAID, SELFPAY ==
--- OUTSIDE RECORDS SUMMARY | 2025-05-22 11:08 | XMS_ITS | Encounter Summary ---
Author Organization [employer] ([place], [place], [place], [place]) Address [address] [place] [address] Care Team Providers Care Master Craftsman Name Role Phone Reva Garcia MD Primary Care Provider [phone] Reason for Referral * MRI (Emergency) - New Request Specialty Diagnoses / Procedures Referred By Cyndie howard Referred To Contact Radiology Diagnoses Osteolysis, right ankle and foot Procedures MR lower extremity without IV contrast right side Amanda Don NP [address] [place] [address] Phone: tel: fax: Referral ID Status Reason Start Date Expiration Date V isits Requested Visits Authorized [id number] New Request Other 02/26/2025 02/26/2026 1 1 Encounter Details Date Type Department Care Team (Late st Contact Info) Description 02/26/2025 Outside Orders [facility] Central Scheduling [address] [place] [address] Amanda Don LPN Osteolysis, right [...] Date Phi rded Speak language other than Honduran at home Not on file 11/23/2023 Want [...] Primary documented in this encounter Care Teams Master Craftsman Relationship Specialty Start Date End Date Reva Garcia MD [address] [facility] [address] [place] [address] PCP - General Family Medicine 02/24/25 documented as of this encounter
--- OUTSIDE RECORDS SUMMARY | 2025-05-22 11:08 | XMS_ITS | Referral Summary ---
Author Organization [employer] ([place], [place], [place], [place]) Address [address] [place] [address] Care Team Providers Care Event Planning Intern Name Role Phone Reva Garcia MD Primary Care Provider [phone] Encounters Date Type Department Care Team Description 02/26/2025 Outside Orders [facility] Central Scheduling [address] [place] [address] Amanda Don LPN 02/26/2025 Outside Orders [facility] Scheduling [address] [place] [address] Amanda Don LPN Osteolysis, right ankle and foot (Primary Dx) 02/26/2025 Travel 02/26/2025 10:07 AM EDT - 02/26/2025 11:59 PM EDT Hospital Encounter [facility] MRI [address] [place] [address] Amanda Don NP Right foot pain Discharge Disposition: Home or Self Care 02/26/2025 Outside Orders [facility] Scheduling [address] [place] [address] Amanda Don LPN Right foot pain (Primary Dx) 02/24/2025 Travel 02/24/2025 8:53 AM EDT - 02/24/2025 10:02 AM EDT Emergency [facility] Emergency Department [address] [place] [address] Cunningham, Melissa F, MD Blister (nonthermal), left [...] on file Medical Devices Implanted Type Area Nanoelectronics Engineer Device Identifier Shelf Expiration Date Model / [...] POC-Creatinine 1.0 mg/dL 02/26/2025 2:18 PM EDT [facility] POC-EGFR 97 mL/min/1. 73M2 02/26/2025 2:18 PM EDT [facility] Comment:Proceed with contras t if eGFR > 45 ml/min/1.73 when performed on the NovaSTAT strip Creatinine meter. Mechanical Service Specialist John Clemens 02/26/2025 2:18 PM EDT [facility] Blood 02/26/2025 2:14 PM EDT 02/26/2025 2:17 PM EDT Narrative [facility] - 02/26/2025 2:18 PM EDT Mechanical Service Specialist ID is - [id number] Amanda Don NP POINT OF CARE TEST ORDERABLES F inal Result [facility] [address] [place] [address] * Laceration repair (02/24/2025 9:44 AM EDT) Narrative Melissa Cunningham MD - 02/24/2025 9:44 AM EDT Hannah Garcia PA-C 02/24/2025 9:46 AM Laceration repair Date/Time: 02/24/2025 9:44 AM Performed by: Hannah Garcia PA-C Authorized by: Hannah Garcia PA-C Consent: Consent obtained: Verbal Consent given by: Patient Risks discussed: Infection, poor cosmetic result and poor wound healing Alternatives discussed: No treatment and delayed treatment [place] protocol: Patient identity confirmed: Verbally with patient [...] from Last 3 Months Insurance Care Teams Event Planning Intern Relationship Specialty Start Date End Date Reva Garcia MD [address] [facility] [address] [place] [address] PCP - General Family Medicine 02/24/25
--- OUTSIDE RECORDS SUMMARY | 2025-05-22 11:08 | XMS_ITS | Encounter Summary ---
Author Organization [employer] ([place], [place], [place], [place]) Address [address] [place] [address] Care Team Providers Care Veterinary Dentist Name Role Phone Reva Garcia MD Primary Care Provider [phone] Encounter Details Date Type Department Care Team (Late st Contact Info) Description 07/27/2022 Transcribed Document [facility] [place] [address] [place] [address] ProviderEric MD [address] [place] [address] Social History Tobacco Use Types Packs/Day Years Used Date Smoking Tobacco: Never Assessed Family and Community Support Answer Brian e Recorded Help with Day to Day Activities Not on file 11/23/2023 Feeling Lonely or Isolated Not on file 11/23 Educational Attainment Answer Date Phi rded Speak language other than Iraqi at home Not on file 11/23/2023 Want [...] on file documented as of this encounter Functional Status documented as of this encounter Miscellaneous Notes * Cerner Conversion Note - Eric De Jesus MD - 07/27/2022 8:12 AM CDT Ambulatory Intake and History Entered On: 07/27/2022 8:12 EDT Performed On: 07/27/2022 8:12 EDT by CHRISTINE RENDON RN General Info Ambulatory Chief Complaint : pain in upper back, ribs, and hip CHRISTINE RENDON RN - 07/27/2022 8:17 EDT Primary Language : Iraqi CHRISTINE RENDON RN - 07/27/2022 8:12 EDT [...] Body Mass Index : 38.1 kg/m2 (HI) Daisy Body Weight : 77 kg CHRISTINE RENDON RN - 07/27/2022 8:36 EDT Height Source : Stated Height Entry Format : [place] Weight Source : Standing scale Weight Entry Format : [place] CHRISTINE RENDON RN - 07/27/2022 8:12 EDT [...] Scale Risk Level : 0-24 Low Risk [place] Fall Interventions : Adequate lighting, Hourly comfort/safety rounds, Non-slip footwear, Personal items within reach, Room free of clutter/spills Barriers to Learning : None evident Learning Style Preferences Family : None Learning Style Preferences Patient : None CHRISTINE RENDON RN - 07/27/2022 8:36 EDT Sleep [...] on filedocumented in this encounter Care Teams Veterinary Dentist Relationship Specialty Start Date End Date Reva Garcia MD [address] [facility] [address] [place] [address] PCP - General Family Medicine 02/24/25 documented as of this encounter
--- OUTSIDE RECORDS SUMMARY | 2025-05-22 11:08 | XMS_ITS | Encounter Summary ---
Author Organization [employer] ([place], [place], [place], [place]) Address [address] [place] [address] Care Team Providers Care Plaster Lather Name Role Phone Reva Garcia MD Primary Care Provider [phone] Reason for Referral * MRI (Routine) - Pending Review Specialty Diagnoses / Procedures Referred By Cyndie howard Referred To Contact Radiology Diagnoses Right foot pain Procedures MR lower extremity joint only without & with contrast right Amanda Don NP [address] [place] [address] Phone: tel: fax: Referral ID Status Reason Start Date Expiration Date V isits Requested Visits Authorized [id number] Pending Review Other 02/26/2025 02/26/2026 1 1 Encounter Details Date Type Department Care Team (Late st Contact Info) Description 02/26/2025 Outside Orders [facility] Central Scheduling 1 [place] [address] Amanda Don LPN Right foot [...] Date Phi rded Speak language other than Guinean at home Not on file 11/23/2023 Want [...] limb documented in this encounter Care Teams Plaster Lather Relationship Specialty Start Date End Date Reva Garcia MD [address] [facility] [address] [place] [address] PCP - General Family Medicine 02/24/25 documented as of this encounter
--- OUTSIDE RECORDS SUMMARY | 2025-05-22 11:08 | XMS_ITS | Encounter Summary ---
Author Organization [employer] ([place], [place], [place], [place]) Address [address] [place] [address] Care Team Providers Care Senior Research Associate Name Role Phone Reva Garcia MD Primary Care Provider [phone] Encounter Details Date Type Department Care Team (Late st Contact Info) Description 07/27/2022 Transcribed Document [facility] Family Medicine [address] [place] [address] ProviderEric MD [address] [place] [address] Social History Tobacco Use Types Packs/Day Years Used Date Smoking Tobacco: Never Assessed Family and Community Support Answer Brian e Recorded Help with Day to Day Activities Not on file 11/23/2023 Feeling Lonely or Isolated Not on file 11/23 Educational Attainment Answer Date Phi rded Speak language other than Tuvaluan at home Not on file 11/23/2023 Want [...] - Eric De Jesus MD - 07/27/2022 10:38 AM CDT Patient: SAHIL [...] bilateral deltoid, biceps, triceps, intrinsic hand and paving block cutter Deep Tendon Reflexes: symetrical at the bilateral [...] Q8H, # 90 Tab, 1 Refill(s), Pharmacy: [facility], 182.88, cm, 07/27/22 8:36:00 EDT, CLINICALHEIGHT, [...] Status No Code Status Order on Record Electronically signed by Emeka Kevin Conversion Used Building Materials Yard Worker Cerner at 02/24/2023 7:41 PM CDT documented in this encounter Plan of Treatment Not on file documented as of this encounter Visit Diagnoses Not on filedocumented in this encounter Care Teams Senior Research Associate Relationship Specialty Start Date End Date Reva Garcia MD [facility] [address] [place] [id number] PCP - General Family Medicine 02/24/25 documented as of this encounter
--- OUTSIDE RECORDS SUMMARY | 2025-05-22 11:08 | XMS_ITS | Clinical Summary ---
Author Organization [employer] ([place], [place], [place], [place]) Address [address] [place] [address] Care Team Providers Care Telex Operator Name Role Phone Reva Garcia MD Primary Care Provider [phone] Allergies No known active allergies Medications amlodipine [...] - 02/26/2025 11:59 PM EDT Hospital Encounter [address] [phone] Amanda Don NP Right foot pain Discharge Disposition: Home or Self Care 02/26/2025 Outside Orders [facility] Central Scheduling [address] [place] [address] Amanda Don LPN 02/26/2025 Outside Orders [facility] Central Scheduling [address] [place] [address] Amanda Don LPN Osteolysis, right ankle and foot (Primary Dx) 02/26/2025 Travel 02/26/2025 Outside Orders [facility] Central Scheduling [address] [place] [address] Amanda Don LPN Right foot pain (Primary Dx) 02/24/2025 8:53 AM EDT - 02/24/2025 10:02 AM EDT Emergency [facility] Emergency Department [address] [place] [address] Melissa Cunningham MD Blister (nonthermal), left [...] Date Phi rded Speak language other than Pakistani at home Not on file 11/23/2023 Want [...] this topic Medical Devices Implanted Type Area Director Data Architecture Device Identifier Shelf Expiration Date Model / [...] POC-Creatinine 1.0 mg/dL 02/26/2025 2:18 PM EDT [facility] POC-EGFR 97 mL/min/1. 73M2 02/26/2025 2:18 PM EDT [facility] Comment:Proceed with contras t if eGFR > 45 ml/min/1.73 when performed on the NovaSTAT strip Creatinine meter. Die Developer Sarath Cordellwhitley 02/26/2025 2:18 PM EDT [facility] Blood 02/26/2025 2:14 PM EDT 02/26/2025 2:17 PM EDT Narrative [facility] - 02/26/2025 2:18 PM EDT Die Developer ID is - [id number] us Amanda Don NP POINT OF CARE TEST ORDERABLES F inal Result [facility] [address] [place] [address], [facility] [phone] * Laceration repair (02/24/2025 9:44 AM EDT) Narrative Melissa Cunningham MD - 02/24/2025 9:44 AM EDT Hannah Garcia PA-C 02/24/2025 9:46 AM Laceration repair Date/Time: 02/24/2025 9:44 AM Performed by: Hannah Garcia PA-C Authorized by: Hannah Garcia PA-C Consent: Consent obtained: Verbal Consent given by: Patient Risks discussed: Infection, poor cosmetic result and poor wound healing Alternatives discussed: No treatment and delayed treatment [place] protocol: Patient identity confirmed: Verbally with patient [...] Final Result from Last 3 Months Insurance [facility] MEDICAID Care Teams Telex Operator Relationship Specialty Start Date End Date Reva Garcia MD [address] [place] [address] [address] [place] [address] PCP - General Family Medicine 02/24/25
--- OUTSIDE RECORDS SUMMARY | 2025-05-22 11:08 | XMS_ITS | Encounter Summary ---
Author Organization [employer] ([place], [place], [place], [place]) Address [address] [place] [address] Care Team Providers Care Turbine Blade Assembler Name Role Phone Reva Garcia MD Primary Care Provider [phone] Encounter Details Date Type Department Care Team (Late st Contact Info) Description 07/27/2022 Transcribed Document [facility] Family Medicine [address] [place] [address] ProviderEric MD [address] [place] [address] Social History Tobacco Use Types Packs/Day Years Used Date Smoking Tobacco: Never Assessed Family and Community Support Answer Brian e Recorded Help with Day to Day Activities Not on file 11/23/2023 Feeling Lonely or Isolated Not on file 11/23 Educational Attainment Answer Date Phi rded Speak language other than Cape Verdean at home Not on file 11/23/2023 Want [...] - Eric De Jesus MD - 07/27/2022 9:31 AM CDT [facility] [address] [id number] SAHIL PIERSON :1980 Visit Time:07/27/2022 Your Visit Summary Your Care Team Admitting Physician - KEREN SHELTON MD-ANS Attending Physician - KEREN SHELTON MD-ANS Primary Care Physician - FAMILY SARAHI (REF), Referring Physician - ANGELA FRIAS ARN-FAM These Are Your Goals to be pain free or less pain leading to normal life No qualifying data available. Discharge Vitals Temperature 36.8 ??C Respiratory Rate 18 Blood Pressure 175/118 What to do next Follow-Up Appointments Follow Up with KEREN SHELTON MD-ANS When Within 2 months Where: [address] [facility] [address] [place] [address]- Medications What How Much When Instructions Next [...] Keep items that you use often in jylw-zf-alhma places. Lower the shelves around your home [...] the way. ??? Do not use floor italian or wax that makes floors slippery. What [...] Control and Prevention, STEADI: www.cdc.gov ??? National [place] on Aging: www.roque.nih.gov Contact a doctor if: [...] provider. Document Revised: 05/26/2021 Document Reviewed: 05/26/2021 [employer] Patient Education ?? 2021 [employer] Emergency Awareness and Preventative Care STROKE [...] Assistance with quitting is available by contacting 4-046-PWITNOW. This is a free resource providing counseling, [...] Other Results This Visit Patient Name:SAHIL PIERSON I have received and understand this information and was given the opportunity to ask questions. Patient/Jacquard Plate Maker Name: Patient/Jacquard Plate Maker Signature: Relationship to Patient: Clinician/Hospital Jacquard Plate Maker Signature: Date: Electronically signed by Dorita, Leonidas Conversion Orthotic Finish Grinding Technician Cerner at 02/24/2023 7:59 PM CDT documented in this encounter Plan of Treatment Not on file documented as of this encounter Visit Diagnoses Not on filedocumented in this encounter Care Teams Turbine Blade Assembler Relationship Specialty Start Date End Date Reva Garcia MD [address] [place] [phone] PCP - General Family Medicine 02/24/25 documented as of this encounter
--- OUTSIDE RECORDS SUMMARY | 2025-05-22 11:08 | XMS_ITS | Encounter Summary ---
Author Organization [employer] ([place], [place], [place], [place]) Address [address] [place] [address] Care Team Providers Care Pediatric Allergist Name Role Phone Reva Garcia MD Primary Care Provider [phone] Encounter Details Date Type Department Care Team (Late st Contact Info) Description 07/27/2022 Transcribed Document [facility] Family Medicine [address] [place] [address] ProviderEric MD [address] [place] [address] Social History Tobacco Use Types Packs/Day Years Used Date Smoking Tobacco: Never Assessed Family and Community Support Answer Brian e Recorded Help with Day to Day Activities Not on file 11/23/2023 Feeling Lonely or Isolated Not on file 11/23 Educational Attainment Answer Date Phi rded Speak language other than Moldovan at home Not on file 11/23/2023 Want [...] - Eric De Jesus MD - 07/27/2022 9:30 AM CDT Nursing Discharge Summary Entered On: 07/27/2022 9:31 EDT Performed On: 07/27/2022 9:30 EDT by RACHNA HOWARD brim blocker Documentation Discharge Date/Time : 07/27/2022 9:30 EDT [...] materials Teaching Evaluation : Verbalizes understanding RACHNA HOWARD, RN - 07/27/2022 9:30 EDT Electronically signed by [facility] Conversion Senior Laboratory Technician Cerner at 02/24/2023 8:05 PM CDT documented in this encounter Plan of Treatment Not on file documented as of this encounter Visit Diagnoses Not on filedocumented in this encounter Care Teams Pediatric Allergist Relationship Specialty Start Date End Date Reva Garcia MD [address] [facility] [address] [place] [address] PCP - General Family Medicine 02/24/25 documented as of this encounter
--- OUTSIDE RECORDS SUMMARY | 2025-05-22 11:08 | XMS_ITS | Encounter Summary ---
Author Organization [employer] ([place], [place], [place], [place]) Address [address] [place] [address] Care Team Providers Care Public Health Program Manager Name Role Phone Reva Garcia MD Primary Care Provider [phone] Encounter Details Date Type Department Care Team (Late st Contact Info) Description 02/26/2025 Outside Orders [facility] Central Scheduling [address] [place] [address] Amanda Don, SAGAR Social History [...] Date Phi rded Speak language other than Kosovan at home Not on file 11/23/2023 Want [...] on filedocumented in this encounter Care Teams Public Health Program Manager Relationship Specialty Start Date End Date Reva Garcia MD [address] [facility] [address] [place] [address] PCP - General Family Medicine 02/24/25 documented as of this encounter
--- OUTSIDE RECORDS SUMMARY | 2025-05-22 11:08 | XMS_ITS | Encounter Summary ---
Author Organization [employer] ([place], [place], [place], [place]) Address [address] [place] [address] Care Team Providers Care Pin Or Clip Fastener Name Role Phone Reva Garcia MD Primary Care Provider [phone] Encounter Details Date Type Department Care Team (Late st Contact Info) Description 07/27/2022 Transcribed Document [facility] Family Medicine [address] [place] [address] ProviderEric MD [address] [place] [address] Social History Tobacco Use Types Packs/Day Years Used Date Smoking Tobacco: Never Assessed Family and Community Support Answer Brian e Recorded Help with Day to Day Activities Not on file 11/23/2023 Feeling Lonely or Isolated Not on file 11/23 Educational Attainment Answer Date Phi rded Speak language other than Latvian at home Not on file 11/23/2023 Want [...] Jesus MD - 07/27/2022 9:30 AM CDT Patient Education [...] Keep items that you use often in tlpa-py-wpbgi places. Lower the shelves around your home [...] the way. ??? Do not use floor burmese or wax that makes floors slippery. What [...] Control and Prevention, STEADI: www.cdc.gov ??? National [place] on Aging: www.roque.nih.gov Contact a doctor if: [...] provider. Document Revised: 05/26/2021 Document Reviewed: 05/26/2021 [employer] Patient Education ? 2021 [employer] documented in this encounter Plan of Treatment Not on file documented as of this encounter Visit Diagnoses Not on filedocumented in this encounter Care Teams Pin Or Clip Fastener Relationship Specialty Start Date End Date Reva Garcia MD [address] [address] PCP - General Family Medicine 02/24/25 documented as of this encounter
[2025-05-22 11:26] VITALS: BP 132/91; PULSE 64; RESP 18; O2SAT 96; BMI 34.2
--- NOTE | 2025-05-22 12:08 | P.PCN_ITS ---
Procedure Date: 05/22/25 Time: 12:08 Anesthesiologist:: Becca Isaac APRN Complications:: None Pre-procedure Diagnosis:: Degenerative disc disease of cervical, thoracic and lumbar spine with cervical, thoracic and lumbar radiculopathy symptoms Post-procedure Diagnosis:: Same Indications for Procedure:: Patient is a pleasant 44-year-old male who presents today for intrathecal adjustment and reprogram. Today he rates his pain a 4 out of 10. Patient states that from our last visit where we did change him to the flex dosing that he did not really notice a big improvement however denies any side effects. Patient does state that he ended up running into the door the other day on the 11 10. He states that he had his hands full and he thought he had gotten the doorknob turned but ultimately ran into it and then cause worsening neck and numbness into his hands. He does state that he is feeling better but it still really stiff. Patient denies any falls. Patient is currently managed with morphine 2 mg/mL with flex dosing of 0.3784 mg/day. He denies any side effects. His Roberto Carlos has been reviewed and is appropriate. Physical Exam: General: Alert and oriented x3, no acute distress, pleasant and cooperative Lungs: Respirations even and unlabored, symmetrical chest expansion Eyes: PERRL Musculoskeletal: Flexion and extension of cervical [spine] somewhat guarded secondary to pain, [antalgic gait noted] Neurological: Speech clear, no gross sensory deficit Procedure Details:: Informed consent was obtained and the risk and benefits of the procedure were explained to the patient. Patient did have noninvasive monitoring was placed including noninvasive blood pressure cuff and pulse oximeter. Patient's pump was interrogated and was reprogrammed to be increased 15% on his flex dosing of 0.4434 mg/day. The patient tolerated the procedure well with no complications. Plan and Disposition:: Patient tolerated the procedure well with no complications and was discharged neurologically intact. We will give him a tentative 2-week follow-up and he was counseled that he can cancel this appointment if he does not need it. Patient agrees with this plan of care. Patient will return to clinic on or before their next intrathecal refill date. We will see the patient back in the clinic at the next intrathecal refill. Patient has been instructed to contact the clinic with any concerns before the next appointment. Dr. Calderon has reviewed this note and agrees with this plan of care. This note was dictated using voice recognition software and make contain errors or omissions. -- It Is medically necessary for this patient to continue to have their intrathecal pump refilled at regular intervals. This patient had an intrathecal pain pump implanted after meeting criteria of chronic intractable pain for greater than 3 months and failing conservative treatments. Patient has committed and been compliant to the treatment plan and all planned follow up care. Since implantat ion of the intrathecal pain pump, the patient has had decreased pain and been more functional. Oral medications have been reduced including intake of oral opioids. Patient continues to do well with intrathecal therapy with decrease in pain symptoms and increase in functional status. Stopping intrathecal medications can lead to life threatening withdrawal, seizures, cardiac arrest, severe pain, and possible . Pumps that are not refilled at regular intervals can be damages and cause and need for replacement. We continually titrate dose and concentration to optimize pain relief and function. We are limited in concentration for certain drugs to safely deliver medications through the pump and stay within the recommendations from the Polyanalgesic Consensus Committee Guidelines. Depending on dose and concentration these pumps may need to be refilled sooner than 3 months as we titrate. A UDS is needed to verify patient's compliance with our office pain contract. This is ordered based off specific treatments related to chronic pain with the potential to abuse certain medications.
== END 2025-05-22 23:59 | disposition home or self-care (01) ==
PROVIDERS: Visit Provider Nurse Practitioner Family
DX: M50.10 Cervical disc disorder with radiculopathy, unspecified cervical region (principal); M51.14 Intervertebral disc disorders with radiculopathy, thoracic region; M51.16 Intervertebral disc disorders with radiculopathy, lumbar region
CPT/HCPCS: 99212; G0463

== ENCOUNTER 2025-06-05 10:27 | Outpatient (POV) | payer MEDICAID, SELFPAY ==
--- OUTSIDE RECORDS SUMMARY | 2025-06-05 10:32 | XMS_ITS | Encounter Summary ---
Author Organization [employer] ([place], [place], [place], [place]) Address [address] [place] [address] Care Team Providers Care Polystyrene Bead Molder Name Role Phone Reva Garcia MD Primary Care Provider Encounter Details Date Type Department Care Team (Late st Contact Info) Description 07/27/2022 Transcribed Document [facility] Family Medicine [address] [place] [address] ProviderEric MD [address] [place] [address] Social History Tobacco Use Types Packs/Day Years Used Date Smoking Tobacco: Never Assessed Family and Community Support Answer Brian e Recorded Help with Day to Day Activities Not on file 11/23/2023 Feeling Lonely or Isolated Not on file 11/23 Educational Attainment Answer Date Phi rded Speak language other than Niuean at home Not on file 11/23/2023 Want [...] On: 07/27/2022 9:30 EDT by RACHNA HOWARD RN Discharge Documentation Discharge Date/Time : 07/27/2022 9:30 EDT [...] - 07/27/2022 9:30 EDT Electronically signed by [facility] Conversion Pot Sander Cerner at 02/24/2023 8:05 PM CDT documented in this encounter Plan of Treatment Not on file documented as of this encounter Visit Diagnoses Not on filedocumented in this encounter Care Teams Polystyrene Bead Molder Relationship Specialty Start Date End Date Reva Garcia MD [address] [place] [address] PCP - General Family Medicine 02/24/25 documented as of this encounter
--- OUTSIDE RECORDS SUMMARY | 2025-06-05 10:32 | XMS_ITS | Encounter Summary ---
Author Organization [facility] Address [address] [place] [id number] Care Team Providers Care Night Guard Name Role Phone Robert Hill APRN Primary Care Provider [phone] Reason for Visit * Reason Comments Med Refill Encounter Details Date Type Department Care Team (Late st Contact Info) Description 10/12/2020 Refill [facility] [address] [address] Crystal Chiu APRN [address] [facility] [address] [place] [address] Lumbar radiculopathy; History of lumbar discectomy; DDD (degenerative disc disease), lumbar; Diabetes mellitus type 1, controlled, insulin dependent; LEXI on CPAP Social History Tobacco Use Types Packs/Day Years Used Date Smoking Tobacco: Never Smokeless Tobacco: Never Alcohol Use Standard Drinks/Week Comments No 0 (1 standard drink = 0.6 oz pur e alcohol) AUDIT-C Answer Date Recorded Q1: How often do you have a drink containing alc ohol? Never 09/25/2020 Average Number of Drinks Not on file 020 Frequency of Binge Drinking Not on file 09/07 Sex and Gender Information Value Date Recorded Sex Assigned at Not on file Legal Sex Male 1:12 PM EDT Gender Identity Not on file Sexual Orientation Not on file documented as of this encounter Plan of Treatment Not on file documented as of this encounter Visit Diagnoses Diagnosis Lumbar radiculopathy Thoracic or lumbosacral neuritis or radiculitis, unspecified History of lumbar discectomy DDD (degenerative disc disease), lumbar Degeneration of lumbar or lumbosacral intervertebral disc Diabetes mellitus type 1, controlled, insulin dependent LEXI on CPAP documented in this encounter Additional Health Concerns Infection Onset Date Last Indicated Resolved Time COVID Screen (preop/placement) 08/10/2021 08/10/2021 08/10/2021 4:17 PM EDT documented as of this encounter Care Teams Night Guard Relationship Specialty Start Date End Date Robert Hill APRN PCP - General Family Medicine 10/25/19 documented as of this encounter
--- OUTSIDE RECORDS SUMMARY | 2025-06-05 10:32 | XMS_ITS | Encounter Summary ---
Author Organization [employer] ([place], [place], [place], [place]) Address [address] [place] [address] Care Team Providers Care Supervisor Cigarette Making Department Name Role Phone Reva Garcia MD Primary Care Provider Reason for Referral * MRI (Routine) - Pending Review Specialty Diagnoses / Procedures Referred By Cyndie howard Referred To Contact Radiology Diagnoses Right foot pain Procedures MR lower extremity joint only without & with contrast right Amanda Don NP [address] [place] [address] Phone: tel: fax: Referral ID Status Reason Start Date Expiration Date V isits Requested Visits Authorized [id number] Pending Review Other 02/26/2025 02/26/2026 1 1 Encounter Details Date Type Department Care Team (Late st Contact Info) Description 02/26/2025 Outside Orders [facility] Central Scheduling [address] [place] [address] Amanda Don LPN Right foot [...] Date Phi rded Speak language other than Sudanese at home Not on file 11/23/2023 Want [...] limb documented in this encounter Care Teams Supervisor Cigarette Making Department Relationship Specialty Start Date End Date Reva Garcia MD [address] [place] [address] PCP - General Family Medicine 02/24/25 documented as of this encounter
--- OUTSIDE RECORDS SUMMARY | 2025-06-05 10:32 | XMS_ITS | Clinical Summary ---
Author Organization [facility] Address [address] [place] [address] Care Team Providers Care Purchasing Analyst Name Role Phone Robert Hill APRN Primary Care Provider [phone] Allergies No known active allergies Medications insulin aspart (novoLOG) 100 UNIT/ML injection Inject under the skin into the appropriate area as directed 3 (Three) Times a Day Before Meals. Per sliding scale Active Lantus SoloStar 100 UNIT/ML injection pen Inject 80 Units under the skin into the appropriate area as directed Every Night. 0 Active irbesartan (AVAPRO) 300 MG tablet Take 300 mg by mouth Every Night. Active amLODIPine (NORVASC) 10 MG tablet Take 10 mg by mouth Daily. 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 05/24/2021 Lumbar radiculopathy 06/26/2020 History of lumbar discectomy 06/26/2020 DDD (degenerative disc disease), lumbar 06/26/20 20 LEXI on CPAP 06/26/2020 Diabetes mellitus type 1, controlled, insulin de pendent 06/26/2020 HNP (herniated nucleus pulposus), lumbar 019 Overview (10/28/2019): Added automatically from request for surgery [id number] Family History Medical History Relation Name Comments Diabetes Father Hypertension Father Relation Name Status Comments Father Social History Tobacco Use Types Packs/Day Years [...] of Binge Drinking Not on file 09/07 PHQ-2 Answer Date Recorded Retired PHQ-9: Brief Depression Severity Measure Score 0 07/21/2022 Abuse Screen Answer Date Recorded Unsafe at Home or Work/School Not on file Feels Threatened by Someone? Not on file 07/2023 Does Anyone Keep You from Co ntacting Others or Doint Things Outside the Home? Not on file 08/14/2023 Physical Sign of Abuse Present Not on file 1 Housing Stability Answer Date Recorded Current Living Arrangements Not on file 07/2023 Potentially Unsafe Housing Conditions Not on paulette e 08/14/2023 Family and Community Support Answer Brian e Recorded Help with Day-to-Day Activities Not on file 08/14/2023 Lonely or Isolated Not on file 08/14/2023 Employment Answer Date Recorded Do you want help finding or keeping work or a neelima b? Not on file 08/14/2023 Disabilities Answer Date Recorded Concentrating, Remembering, or Making Decisions Difficulty Not on file 08/14/2023 Doing Errands Independently Difficulty Not on fi le 08/14/2023 Education Answer Date Recorded Help with school or training? Not on file Preferred Language Not on file 08/14/2023 Sex and Gender Information Value Date Recorded Sex Assigned at Not on file Legal Sex Male 1:12 PM EDT Gender Identity Not on file Sexual Orientation Not on file Last Filed Vital Signs Vital Sign Reading Time Taken Comments Blood Pressure 200/120 07/21/2022 8:15 AM EDT Pulse 100 07/21/2022 8:15 AM EDT Temperature 37.1 C (98.8 F) 07/21/2022 8:15 AM EDT Respiratory Rate 16 07/21/2022 8:15 AM EDT Oxygen Saturation 100% 07/21/2022 8:15 AM EDT Inhaled Oxygen Concentration - - Weight 127 kg (279 lb) 07/21/2022 8:15 AM EDT Height 185.4 cm (6' 1 ) 07/21/2022 8:15 AM EDT Body Mass Index 36.81 07/21/2022 8:15 AM EDT Plan of Treatment Health Maintenance Due Date Last Done Comments DIABETIC EYE EXAM 1991 DIABETIC FOOT EXAM 1991 URINE MICROALBUMIN-CREATININE RATIO (uACR) 1991 Hepatitis B (1 of 3 - 19+ 3-dose series) 2000 Pneumococcal Vaccine 0-49 (1 of 2 - PCV) 2000 TDAP/TD VACCINES (2 - Tdap) 02/10/2007 02/10/1997 ANNUAL PHYSICAL 09/19/2019 HEMOGLOBIN A1C 09/19/2019 HEPATITIS C SCREENING 09/19/2019 COVID-19 Vaccine (3 - season) 2024, 02/04/2021 INFLUENZA VACCINE 08/06/2025 Medical Devices Implanted Type Area Chief Digital Officer Device Identifier Shelf Expiration Date Model / Serial / Lot Hemost Abs Surgifoam [id number] 8x12 10mm - [id number] Implanted:Qty : 1 on 08/12/2021 by Malachi Gastelum MD at [facility] Implant N/A: Spine Thoracic ETH[employer] DIV OF J AND J [id number] / / . Kt Seal Hemos Abs Floseal Matrx Fast/Prep 10ml - [id number] Implanted:Qty : 1 on 08/12/2021 by Malachi Gastelum MD at [facility] Implant N/A: Spine Thoracic [employer] [id number] / / . Ld Stim Surescan Specify Mri 2x8 65cm - [id number] Implanted:Qty : 1 on 08/12/2021 by Malachi Gastelum MD at [facility] Implant N/A: Spine Thoracic MEDTRONIC 05/28/2025 [id number] / / [id number] Neurostm Intellis Surescan Mri W/Adaptive Stim Rechg - [id number] - [id number] Implanted:Qty : 1 on 08/12/2021 by Malachi Gastelum MD at [facility] Implant N/A: Back MEDTRONIC 05/19/2022 [id number] / [id number] / . Insurance [employer] MEDICAID [place] Care Teams Purchasing Analyst Relationship Specialty Start Date End Date Robert Hill APRN PCP - General Family Medicine 10/25/19
--- OUTSIDE RECORDS SUMMARY | 2025-06-05 10:32 | XMS_ITS | Encounter Summary ---
Author Organization [employer] ([place], [place], [place], [place]) Address [address] [place] [address] Care Team Providers Care Director Of Aviation Name Role Phone Reva Garcia MD Primary Care Provider Encounter Details Date Type Department Care Team (Late st Contact Info) Description 07/27/2022 Transcribed Document [facility] [place] Family Medicine [address] [place] [address] ProviderEric MD [address] [place] [address] Social History Tobacco Use Types Packs/Day Years Used Date Smoking Tobacco: Never Assessed Family and Community Support Answer Brina e Recorded Help with Day to Day Activities Not on file 11/23/2023 Feeling Lonely or Isolated Not on file 11/23 Educational Attainment Answer Date Phi rded Speak language other than Congolese at home Not on file 11/23/2023 Want [...] bilateral deltoid, biceps, triceps, intrinsic hand and primary class teacher Deep Tendon Reflexes: symetrical at the bilateral [...] Q8H, # 90 Tab, 1 Refill(s), Pharmacy: [facility], 182.88, cm, 07/27/22 8:36:00 EDT, CLINICALHEIGHT, [...] on filedocumented in this encounter Care Teams Director Of Aviation Relationship Specialty Start Date End Date Reva Garcia, MD [address] [facility] [address] [place] [address] PCP - General Family Medicine 02/24/25 documented as of this encounter
--- OUTSIDE RECORDS SUMMARY | 2025-06-05 10:32 | XMS_ITS | Referral Summary ---
Author Organization [employer] ([place], [place], [place], [place]) Address [address] [place] [address] Care Team Providers Care Manager Highway Name Role Phone Reva Garcia MD Primary Care Provider Allergies No known active allergies Medications amlodipine [...] Date Phi rded Speak language other than New Zealander at home Not on file 11/23/2023 Want [...] on file Medical Devices Implanted Type Area Commercial Real Estate Attorney Device Identifier Shelf Expiration Date Model / Serial / Lot Spine Spine Insurance Care Teams Manager Highway Relationship Specialty Start Date End Date Reva Garcia MD [address] [place], [place] [phone] (work) PCP - General Family Medicine 02/24/25
--- OUTSIDE RECORDS SUMMARY | 2025-06-05 10:32 | XMS_ITS | Encounter Summary ---
Author Organization [employer] ([place], [place], [place], [place]) Address [address] [place] [address] Care Team Providers Care Hospice Physician Name Role Phone Reva Garcia MD Primary Care Provider Encounter Details Date Type Department Care Team (Late st Contact Info) Description 02/26/2025 Outside Orders [facility] Central Scheduling [address] [place] [address] Amanda Don, CLOTH OPENER HAND Social History Tobacco Use Types Packs/Day Years [...] Date Phi rded Speak language other than Canadian at home Not on file 11/23/2023 Want [...] on filedocumented in this encounter Care Teams Hospice Physician Relationship Specialty Start Date End Date Reva Garcia MD [address] [place] [address] PCP - General Family Medicine 02/24/25 documented as of this encounter
--- OUTSIDE RECORDS SUMMARY | 2025-06-05 10:32 | XMS_ITS | Encounter Summary ---
Author Organization [employer] ([place], [place], [place], [place]) Address [address] [place] [address] Care Team Providers Care Shop Estimator Name Role Phone Reva Garcia MD Primary Care Provider Reason for Referral * MRI (Emergency) - New Request Specialty Diagnoses / Procedures Referred By Cyndie howard Referred To Contact Radiology Diagnoses Osteolysis, right ankle and foot Procedures MR lower extremity without IV contrast right side Amanda Don NP [address] [place] [address] Phone: tel: fax: Referral ID Status Reason Start Date Expiration Date V isits Requested Visits Authorized [id number] New Request Other 02/26/2025 02/26/2026 1 1 Encounter Details Date Type Department Care Team (Late st Contact Info) Description 02/26/2025 Outside Orders [facility] Central Scheduling [address] [place] [address] Amanda Don LPN Osteolysis, right [...] Date Phi rded Speak language other than Malagasy at home Not on file 11/23/2023 Want [...] Primary documented in this encounter Care Teams Shop Estimator Relationship Specialty Start Date End Date Reva Garcia MD [address] [facility] [address] [place] [id number] PCP - General Family Medicine 02/24/25 documented as of this encounter
--- OUTSIDE RECORDS SUMMARY | 2025-06-05 10:32 | XMS_ITS | Encounter Summary ---
Author Organization [facility] ([place], [place], [place], [place]) Address [address] [place] [address] Care Team Providers Care Keeler Polygraph Operator Name Role Phone Reva Garcia MD Primary Care Provider Encounter Details Date Type Department Care Team (Late st Contact Info) Description 07/27/2022 Transcribed Document [facility] [place] [address] [place] [address] ProviderEric MD [address] [place] [address] Social History Tobacco Use Types Packs/Day Years Used Date Smoking Tobacco: Never Assessed Family and Community Support Answer Brian e Recorded Help with Day to Day Activities Not on file 11/23/2023 Feeling Lonely or Isolated Not on file 11/23 Educational Attainment Answer Date Phi rded Speak language other than Greek at home Not on file 11/23/2023 Want [...] - 07/27/2022 8:17 EDT Primary Language : Greek CHRISTINE RENDON RN - 07/27/2022 8:12 EDT [...] Body Mass Index : 38.1 kg/m2 (HI) [place] Body Weight : 77 kg CHRISTINE RENDON RN - 07/27/2022 8:36 EDT Height Source : Stated Height Entry Format : [place] Weight Source : Standing scale Weight Entry Format : [place] CHRISTINE RENDON RN - 07/27/2022 8:12 EDT [...] Scale Risk Level : 0-24 Low Risk [place] Fall Interventions : Adequate lighting, Hourly comfort/safety [...] the text rendition version of the form. Electronically signed by Emeka Kevin Conversion Underground Distribution Engineer Cerner at 02/24/2023 7:39 PM CDT documented in this encounter Plan of Treatment Not on file documented as of this encounter Visit Diagnoses Not on filedocumented in this encounter Care Teams Keeler Polygraph Operator Relationship Specialty Start Date End Date Reva Garcia MD [address] [place] [id number] PCP - General Family Medicine 02/24/25 documented as of this encounter
--- OUTSIDE RECORDS SUMMARY | 2025-06-05 10:32 | XMS_ITS | Encounter Summary ---
Author Organization [employer] ([place], [place], [place], [place]) Address [address] [place] [address] Care Team Providers Care Plywood Layup Line Core Layer Name Role Phone Reva Garcia MD Primary Care Provider Encounter Details Date Type Department Care Team (Late st Contact Info) Description 07/27/2022 Transcribed Document [facility] [place] [address] [place] [address] ProviderEric MD [address] [place] [address] Social History Tobacco Use Types Packs/Day Years Used Date Smoking Tobacco: Never Assessed Family and Community Support Answer Brian e Recorded Help with Day to Day Activities Not on file 11/23/2023 Feeling Lonely or Isolated Not on file 11/23 Educational Attainment Answer Date Phi rded Speak language other than Central African at home Not on file 11/23/2023 Want [...] Miscellaneous Notes * Cerner Conversion Note - Historical ProviderMD - 07/27/2022 9:31 AM CDT [address] [id number] SAHIL PIERSON :1980 Visit Time:07/27/2022 Your Visit Summary Your Care Team Admitting Physician - KEREN SHLETON MD-ANS Attending Physician - KEREN SHELTON MD-ANS [...] MD-ANS When Within 2 months Where: [address] [facility] [address] [place] [address]- Medications What How Much When Instructions Next [...] Keep items that you use often in eqrn-wx-[id number] places. Lower the shelves around your home [...] the way. ??? Do not use floor icelandic or wax that makes floors slippery. What [...] Control and Prevention, STEADI: www.cdc.gov ??? National [place] on Aging: www.roque.nih.gov Contact a doctor if: [...] provider. Document Revised: 05/26/2021 Document Reviewed: 05/26/2021 Stock[employer] Patient Education ?? 2021 [employer] Emergency Awareness and Preventative Care STROKE [...] Assistance with quitting is available by contacting 6-888-FCNZNOW. This is a free resource providing counseling, [...] was given the opportunity to ask questions. Patient/Renal Dietitian Name: Patient/Renal Dietitian Signature: Relationship to Patient: Clinician/Hospital Renal Dietitian Signature: Date: documented in this encounter Plan of Treatment Not on file documented as of this encounter Visit Diagnoses Not on filedocumented in this encounter Care Teams Plywood Layup Line Core Layer Relationship Specialty Start Date End Date Reva Garcia MD [address] [place] [address] [address] [place] [address] PCP - General Family Medicine 02/24/25 documented as of this encounter
--- OUTSIDE RECORDS SUMMARY | 2025-06-05 10:32 | XMS_ITS | Clinical Summary ---
Author Organization [facility] ([place], [place], [place], [place]) Address [address] [place] [address] Care Team Providers Care Yard Labor Supervisor Name Role Phone Reva Garcia MD [...] Date Phi rded Speak language other than Jordanian at home Not on file 11/23/2023 Want [...] this topic Medical Devices Implanted Type Area Gun Fertilizer Device Identifier Shelf Expiration Date Model / Serial / Lot Spine Spine Insurance Care Teams Yard Labor Supervisor Relationship Specialty Start Date End Date Reva Garcia MD [address] [place] [address] PCP - General Family Medicine 02/24/25
--- OUTSIDE RECORDS SUMMARY | 2025-06-05 10:32 | XMS_ITS | Encounter Summary ---
Author Organization [employer] (?) ([place], [place], [place], [place]) Address [address] [place] [address] Care Team Providers Care Rubber Compounder Mixer Name Role Phone Reva Garcia MD Primary Care Provider Encounter Details Date Type Department Care Team (Late st Contact Info) Description 07/27/2022 Transcribed Document [facility] [place] Family Medicine [address] [place] [address] ProviderEric MD [address] [place] [address] Social History Tobacco Use Types [...] Keep items that you use often in vgdc-vg-fqxkw places. Lower the shelves around your home [...] the way. ??? Do not use floor ivorian or wax that makes floors slippery. What [...] Control and Prevention, STEADI: www.cdc.gov ??? National [place] on Aging: www.roque.nih.gov Contact a doctor if: [...] provider. Document Revised: 05/26/2021 Document Reviewed: 05/26/2021 [employer] Outcomes Patient Education ? 2021 [employer] documented in this encounter Plan of Treatment Not on file documented as of this encounter Visit Diagnoses Not on filedocumented in this encounter Care Teams Rubber Compounder Mixer Relationship Specialty Start Date End Date Reva Garcia MD [address] [address] PCP - General Family Medicine 02/24/25 documented as of this encounter
[2025-06-05 10:44] VITALS: BP 132/86; PULSE 81; RESP 12; O2SAT 99; BMI 34.2
--- NOTE | 2025-06-05 11:14 | EXP.PAIN.PRO ---
Procedure Date: 06/05/25 Time: 11:14 Anesthesiologist:: Becca Isaac APRN Complications:: None Pre-procedure Diagnosis:: Degenerative disc disease of cervical, thoracic and lumbar spine, chronic pain syndrome Post-procedure Diagnosis:: Same Indications for Procedure:: Patient is a pleasant 44-year-old male who presents today for follow-up. Today he rates his pain a 3 out of 10. He denies any new side effects from changing his pump to flex dosing. He states that he did not really notice a difference however and does feel like it could still use additional adjustment. Patient does have a Medtronic stimulator in place and does state that this is still helping. He denies any other changes. His Roberto Carlos has been reviewed and is appropriate. Physical Exam: General: Alert and oriented x3, no acute distress, pleasant and cooperative Lungs: Respirations even and unlabored, symmetrical chest expansion Eyes: PERRL Musculoskeletal: Flexion and extension of lumbar [spine] somewhat guarded secondary to pain, [antalgic gait noted] Neurological: Speech clear, no gross sensory deficit Procedure Details:: Informed consent was obtained and the risk and benefits of the procedure were explained to the patient. Patient did have noninvasive monitoring was placed including noninvasive blood pressure cuff and pulse oximeter. Patient's pump was interrogated and was reprogrammed to morphine 2 mg/mL with a daily flex dosing of 0.02429 mg/day. The patient tolerated the procedure well with no complications. Plan and Disposition:: Patient tolerated the procedure well with no complications and was discharged neurologically intact. Patient will return to clinic on or before their next intrathecal refill date. We will see the patient back in the clinic at the next intrathecal refill. Patient has been instructed to contact the clinic with any concerns before the next appointment. Dr. Calderon has reviewed this note and agrees with this plan of care. This note was dictated using voice recognition software and make contain errors or omissions. -- It Is medically necessary for this patient to continue to have their intrathecal pump refilled at regular intervals. This patient had an intrathecal pain pump implanted after meeting criteria of chronic intractable pain for greater than 3 months and failing conservative treatments. Patient has committed and been compliant to the treatment plan and all planned follow up care. Since implantation of the intrathecal pain pump, the patient has had decreased pain and been more functional. Oral medications have been reduced including intake of oral opioids. Patient continues to do well with intrathecal therapy with decrease in pain symptoms and increase in functional status. Stopping intrathecal medications can lead to life threatening withdrawal, seizures, cardiac arrest, severe pain, and possible . Pumps that are not refilled at regular intervals can be damages and cause and need for replacement. We continually titrate dose and concentration to optimize pain relief and function. We are limited in concentration for certain drugs to safely deliver medications through the pump and stay within the recommendations from the Polyanalgesic Consensus Committee Guidelines. Depending on dose and concentration these pumps may need to be refilled sooner than 3 months as we titrate. A UDS is needed to verify patient's compliance with our office pain contract. This is ordered based off specific treatments related to chronic pain with the potential to abuse certain medications.
== END 2025-06-05 23:59 | disposition home or self-care (01) ==
PROVIDERS: Visit Provider Nurse Practitioner Family
DX: M50.30 Other cervical disc degeneration, unspecified cervical region (principal); M51.34 Other intervertebral disc degeneration, thoracic region; M51.369 Other intervertebral disc degeneration, lumbar region without mention of lumbar back pain or lower extremity pain; G89.4 Chronic pain syndrome
CPT/HCPCS: 62368; 99212; 99213; G0463